=== PATIENT | female | born 1990 | race Caucasian/White ===

== ENCOUNTER 2016-10-21 17:05 | Emergency (ER) | payer OTHER ==
[2016-10-21 17:15] VITALS: O2SAT 96
--- NOTE | 2016-10-21 17:42 | ERPHSYRPT ---
- History of Present Illness Time Seen by Provider: 10/21/16 17:35 Historian: patient Patient Subjective Stated Complaint: PT REPORTS MID CHEST PAIN BEGINNING LAST WEEKEND-WAS TX WITH ANTIBIOTIC COUGH SYRUP ET DIZZY MEDS-STATES THAT IT IS BACK AGAIN-REPORTS PAIN INCREASES IF SHE PUTS ARMS ABOVE HER HEAD Triage Nursing Assessment: PT PALE WARM ET DRY-A & O X 3-AMBULATORY WITH NO DIFFICULTY TO ER ROOM-SLIGHT WHEEZES NOTED TO RIGHT LUNG-REPORTS NONPRODUCTIVE COUGH Physician History: Substernal CP began last week. Was seen at and RX at., cough medicine an Meclizine for dizziness. Pt with dry cough, breathing faster but no fever, palpitations or weakness. 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 States CP sharp, localized, increase with movement but not affected by deep inspiration. Denies any N/V/D. Timing/Duration: day(s) (2) Activities at Onset: activity Quality: sharpness Location: substernal Chest Pain Radiation: no radiation Severity of Pain-Max: moderate Severity of Pain-Current: moderate Modifying Factors: Improves With: movement (worsens) Associated Symptoms: cough, No nausea, No vomiting, No palpitations, No heartburn, No fever, No weakness, No dizziness Prior Chest Pain/Cardiac Workup: no prior chest pain Nitro Today/Relief: no nitro taken today Aspirin Treatment Today: no aspirin today Allergies/Adverse Reactions: nifedipine [From Procardia] Allergy (Verified 10/21/16 17:14) methylprednisolone [From Medrol] Adverse Reaction (Verified 10/21/16 17:14) Home Medications: No Home Meds 1 ea UD 10/21/16 [History] Hx Tetanus, Diphtheria Vaccination/Date Given: Yes Hx Influenza Vaccination/Date Given: No Hx Pneumococcal Vaccination/Date Given: No Immunizations Up to Date: Yes - Review of Systems Constitutional: No Fever, No Chills Eyes: No Symptoms Ears, Nose, & Throat: No Symptoms Respiratory: No Cough, No Dyspnea Cardiac: Chest Pain, No Edema, No Syncope Abdominal/Gastrointestinal: No Abdominal Pain, No Nausea, No Vomiting, No Diarrhea Genitourinary Symptoms: No Dysuria Musculoskeletal: No Back Pain, No Neck Pain Skin: No Rash Neurological: No Dizziness, No Focal Weakness, No Sensory Changes Psychological: No Symptoms Endocrine: No Symptoms All Other Systems: Reviewed and Negative - Past Medical History Pertinent Past Medical History: Yes Neurological History: TIA, Other ENT History: No Pertinent History Cardiac History: Angina Respiratory History: No Pertinent History Endocrine Medical History: No Pertinent History Musculoskeletal History: No Pertinent History GI Medical History: Gallbladder Disease History: Other Psycho-Social History: Anxiety, Attention Deficit Disorder, Depression Female Reproductive Disorders: No Pertinent History Other Medical History: neurogenic - Past Surgical History Past Surgical History: Yes Neuro Surgical History: No Pertinent History Cardiac: No Pertinent History Respiratory: No Pertinent History Gastrointestinal: Cholecystectomy Genitourinary: No Pertinent History Musculoskeletal: No Pertinent History Female Surgical History: Section Other Surgical History: - Social History Smoking Status: Former smoker How long have you smoked: 1 YEAR Exposure to second hand smoke: No Drug Use: none Patient Lives Alone: No - Female History Hx Now: No - Nursing Vital Signs Temperature: 98.1 F Temperature Source: Oral Pulse Rate: 93 Respiratory Rate: 22 Pain Intensity: 6 - Physical Exam General Appearance: no apparent distress, alert Eye Exam: PERRL/EOMI, eyes nml inspection Ears, Nose, Throat Exam: normal ENT inspection, moist mucous membranes Neck Exam: normal inspection, non-tender, supple, full range of motion Respiratory Exam: normal breath sounds, lungs clear, No respiratory distress Cardiovascular Exam: regular rate/rhythm, normal heart sounds, other (tender ant. chest wall area to palpation) Gastrointestinal/Abdomen Exam: soft, No tenderness, No mass Pelvic Exam: not done Back Exam: normal inspection, No CVA tenderness, No vertebral tenderness Extremity Exam: normal inspection, normal range of motion Neurologic Exam: alert, oriented x 3, cooperative, normal mood/affect, sensation nml, No motor deficits Skin Exam: normal color, warm, dry SpO2: 96 Oxygen Delivery: Room Air - Course Nursing assessment & vital signs reviewed: Yes EKG Interpreted by Me: RATE (91), Sinus Rhythm, NORMAL AXIS, NORMAL INTERVALS, NORMAL QRS, NORMAL ST-T Ordered Tests: Active Orders 24 hr Category Date Time Status EKG-ER Only STAT Care 10/21/16 17:54 Active IV Insertion STAT Care 10/21/16 17:54 Active CHEST 2 VIEWS (PA AND LAT) Stat Exams 10/21/16 17:52 Taken - Progress Progress: improved Air Movement: good Progress Note: 10/21/16 17:45 Pt. given Toradol with some relief of her symptoms Counseled pt/family regarding: diagnosis, rad results - Departure Time of Disposition: 18:30 Departure Disposition: Home Clinical Impression: Chest wall pain Condition: Stable Critical Care Time: No Instructions: Atypical Chest Pain Additional Instructions: Motrin 800mg every 8hrs with food. Return for worse pain, short of breath, dizziness, nausea, vomiting or any problems.
[2016-10-21 18:16] VITALS: BP 120/70
[2016-10-21 18:32] VITALS: PULSE 93
[2016-10-21] MEDS ORDERED: TORAdol 30 mg Injection IV ONE (18:34)
[2016-10-21] MEDS ORDERED: TORAdol 30 mg Injection ONE (18:35)
--- NOTE | 2016-10-22 08:42 | XRAY ---
Exam: Two-view chest from 10/21/2016. Comparison: AP upright portable chest film from 05/13/2014. Indication: Chest pain. Findings: The heart size and contour are normal. The jerad and mediastinal structures appear intact. There is average inflation of the lungs. No air space infiltrates, vascular congestion, pneumothorax, or pleural fluid is seen. The visualized bones appear grossly intact. Surgical clips are seen within the right upper quadrant consistent with prior cholecystectomy. EKG leads are seen in place. Comparison: 1. No acute cardiopulmonary process is seen.
== END 2016-10-21 18:58 | disposition home or self-care (01) ==
LOC: ED 17:05
DX: R07.89 Other chest pain (principal)
CPT/HCPCS: 36000; 71020; 93005; 96374; 99284; J1885

== ENCOUNTER 2016-11-11 22:10 | Emergency (ER) | payer OTHER ==
[2016-11-11 22:28] VITALS: BP 129/79; PULSE 88; O2SAT 97
--- NOTE | 2016-11-11 22:35 | ERPHSYRPT ---
- History of Present Illness Time Seen by Provider: 11/11/16 22:29 Source: patient Exam Limitations: no limitations Physician History: The patient is a 26-year-old female comes in complaining of burning and redness under each armpit that began about 3 hours ago when she was using Trivedi on her legs and accidentally scratched her arm pits with Trivedi on her fingers. Then her armpits became red and irritated. She called the [place] [employer] nurse hotline and was told to come to the ER. She tried washing it off with soap and water before coming in. She's tried various lotions like aloe as well. Timing/Duration: hour(s) (3) Quality: burning, painful Severity: mild Location: other (arm pits) Possible Causes: other (Trivedi) Modifying Factors: Improves With: other Associated Symptoms: rash Allergies/Adverse Reactions: nifedipine [From Procardia] Allergy (Verified 11/11/16 22:28) methylprednisolone [From Medrol] Adverse Reaction (Verified 11/11/16 22:28) Home Medications: No Home Meds 1 ea UD 10/21/16 [History] Hx Tetanus, Diphtheria Vaccination/Date Given: Yes Hx Influenza Vaccination/Date Given: No Hx Pneumococcal Vaccination/Date Given: No - Review of Systems Constitutional: No Fever, No Chills Eyes: No Symptoms Ears, Nose, & Throat: No Symptoms Respiratory: No Cough, No Dyspnea Cardiac: No Chest Pain, No Edema, No Syncope Abdominal/Gastrointestinal: No Abdominal Pain, No Nausea, No Vomiting, No Diarrhea Genitourinary Symptoms: No Dysuria Musculoskeletal: No Back Pain, No Neck Pain Skin: Rash Neurological: No Dizziness, No Focal Weakness, No Sensory Changes Psychological: No Symptoms Endocrine: No Symptoms Hematologic/Lymphatic: No Symptoms Immunological/Allergic: No Symptoms All Other Systems: Reviewed and Negative - Past Medical History Pertinent Past Medical History: Yes Neurological History: TIA, Other ENT History: No Pertinent History Cardiac History: Angina Respiratory History: No Pertinent History Endocrine Medical History: No Pertinent History Musculoskeletal History: No Pertinent History GI Medical History: Gallbladder Disease History: Other Psycho-Social History: Anxiety, Attention Deficit Disorder, Depression Female Reproductive Disorders: No Pertinent History Other Medical History: neurogenic - Past Surgical History Past Surgical History: Yes Neuro Surgical History: No Pertinent History Cardiac: No Pertinent History Respiratory: No Pertinent History Gastrointestinal: Cholecystectomy Genitourinary: No Pertinent History Musculoskeletal: No Pertinent History Female Surgical History: Section Other Surgical History: - Social History Smoking Status: Former smoker How long have you smoked: 1 YEAR Exposure to second hand smoke: No Drug Use: none Patient Lives Alone: No - Female History Hx Now: No - Nursing Vital Signs Nursing Vital Signs: Initial Vital Signs Temperature 98.4 F Temperature Source Oral Pulse Rate 88 Respiratory Rate 16 Blood Pressure [Right Arm] 129/79 - Physical Exam General Appearance: no apparent distress, alert Eye Exam: PERRL/EOMI, eyes nml inspection Ears, Nose, Throat Exam: normal ENT inspection, pharynx normal, moist mucous membranes Neck Exam: normal inspection, non-tender, supple, full range of motion Respiratory Exam: normal breath sounds, lungs clear, No respiratory distress Cardiovascular Exam: regular rate/rhythm, normal heart sounds Gastrointestinal/Abdomen Exam: soft, mass, No tenderness Pelvic Exam: not done Rectal Exam: not done Back Exam: normal inspection, normal range of motion, No CVA tenderness, No vertebral tenderness Extremity Exam: normal inspection, normal range of motion Neurologic Exam: alert, oriented x 3, cooperative, normal mood/affect, sensation nml, No motor deficits Skin Exam: rash (Examination of bilateral axilla is significant for mild linear erythematous rash in the right axilla without blistering and slightly more and larger erythematous rash in the left axilla without blistering. These findings are consistent with a contact irritant.) SpO2 Interpretation: normal SpO2: 97 Oxygen Delivery: Room Air - Departure Time of Disposition: 22:39 Departure Disposition: Home Clinical Impression: Irritant contact dermatitis due to chemical Condition: Stable Critical Care Time: No Additional Instructions: You have a contact irritation due to a component of Trivedi that was accidentally placed in the armpits. Gently wash the areas with baby shampoo and pat dry. You may try [id number] Solarcaine as an anesthetic. The area should improve over the next 1-2 days.
== END 2016-11-11 22:48 | disposition home or self-care (01) ==
LOC: ED 22:10
DX: L24.4 Irritant contact dermatitis due to drugs in contact with skin (principal)
CPT/HCPCS: 99281

== ENCOUNTER 2017-07-13 15:51 | Emergency (ER) | payer OTHER ==
[2017-07-13 16:25] VITALS: BP 122/69; PULSE 71; O2SAT 96
--- NOTE | 2017-07-13 16:46 | ERPHSYRPT ---
- History of Present Illness Time Seen by Provider: 07/13/17 16:34 Source: patient Patient Subjective Stated Complaint: PT REPORTS SHE HAS ALL OVER BODY ACHES- COUGH-STATES HER MOTHER TOLD HER SHE HAD A FEVER EARLIER-HER BROTHER HAS BEEN DX WITH THE FLU-REPORTS SHE FEELS NAUSEA BUT HAS NOT VOMITED-DENIES DIARRHEA Triage Nursing Assessment: PT PINK WARM ET DRY-LUNGS CLEAR ET EQUAL WITH NO RETRACTIONS NOTED-SPEAKING IN COMPLETE SENTENCES WITH NO DIFFICULTY Physician History: CC: flu Hx; malaise all week. Fever today. Brother diagnosed with influenza. She has fever, myalgias, headache, sore throat, headache, mild cough. No vomiting but has nausea. Not . No hx of asthma. No hx of DM. Allergies/Adverse Reactions: nifedipine [From Procardia] Allergy (Verified 07/13/17 16:25) methylprednisolone [From Medrol] Adverse Reaction (Verified 07/13/17 16:25) Home Medications: No Home Meds [No Home Meds] 1 ea UD 10/21/16 [History] Hx Tetanus, Diphtheria Vaccination/Date Given: Yes Hx Influenza Vaccination/Date Given: No Hx Pneumococcal Vaccination/Date Given: No Immunizations Up to Date: Yes - Review of Systems Constitutional: Fever, Chills, Fatigue, Malaise Eyes: No Symptoms Ears, Nose, & Throat: Nose Congestion, Throat Pain Respiratory: Cough, No Dyspnea Abdominal/Gastrointestinal: Nausea, Vomiting, Diarrhea Genitourinary Symptoms: No Dysuria Musculoskeletal: Myalgias Skin: No Rash Neurological: Headache All Other Systems: Reviewed and Negative - Past Medical History Pertinent Past Medical History: Yes Neurological History: TIA, Other ENT History: No Pertinent History Cardiac History: Angina Respiratory History: No Pertinent History Endocrine Medical History: No Pertinent History Musculoskeletal History: No Pertinent History GI Medical History: GERD, Gallbladder Disease History: Other Psycho-Social History: Anxiety, Attention Deficit Disorder, Depression Female Reproductive Disorders: No Pertinent History Other Medical History: neurogenic - Past Surgical History Past Surgical History: Yes Neuro Surgical History: No Pertinent History Cardiac: No Pertinent History Respiratory: No Pertinent History Gastrointestinal: Cholecystectomy Genitourinary: No Pertinent History Musculoskeletal: No Pertinent History Female Surgical History: Section Other Surgical History: - Social History Smoking Status: Never smoker How long have you smoked: 1 YEAR Exposure to second hand smoke: No Drug Use: none Patient Lives Alone: No ([place]) - Female History Hx Now: No - Nursing Vital Signs Nursing Vital Signs: Initial Vital Signs Temperature 98.1 F 07/13/17 16:24 Pulse Rate 71 07/13/17 16:24 Respiratory Rate 20 07/13/17 16:24 Blood Pressure 122/69 07/13/17 16:24 O2 Sat by Pulse Oximetry 96 07/13/17 16:24 Pain Scale Pain Intensity 6 - Physical Exam General Appearance: alert, obese, other (pleasant mood) Eye Exam: PERRL/EOMI Ears, Nose, Throat Exam: normal ENT inspection, moist mucous membranes Neck Exam: normal inspection, non-tender, supple, No meningismus Respiratory Exam: normal breath sounds, lungs clear, No respiratory distress Cardiovascular Exam: regular rate/rhythm, No tachycardia Gastrointestinal/Abdomen Exam: soft, No tenderness, No distention Back Exam: normal inspection Extremity Exam: normal inspection, normal range of motion Neurologic Exam: alert, oriented x 3, cooperative, sensation nml, No motor deficits Skin Exam: warm, dry, No rash SpO2 Interpretation: normal SpO2: 96 Oxygen Delivery: Room Air - Course Nursing assessment & vital signs reviewed: Yes - Progress Progress Note: 07/13/17 16:44 She has symptoms of influenza. She chose to take tamiflu. Rx zofran and alb MDI. Counseled pt/family regarding: diagnosis, need for follow-up - Departure Time of Disposition: 16:44 Departure Disposition: Home Clinical Impression: Influenza-like illness Condition: Stable Critical Care Time: No Referrals: Provider,Unknown [Primary Care Provider] - Instructions: Influenza -- Adult Additional Instructions: UPPER RESPIRATORY INFECTIONS 1. The signs and symptoms of a cold may last up to 10 days. These illnesses are due to viruses which are not treatable with antibiotics. 2. The following suggestions can aid in recovery and to minimize symptoms: A. Increase fluid intake. B. Acetaminophen or Ibuprofen as directed. C. Avoid smoking environments as this will increase the risk of developing pneumonia. D. For children, may use a cool mist vaporizer in the child's room. 3. Contact your Family Physician if you note: A. Persisten fever >103 for more than 3 days B. Breathing difficulty C. Productive cough of yellow/green sputum D. Illness greater than 7 days E. Persistent vomiting F. Stiff neck Plenty of fluids. Rx zofran- [facility] Rx alb [facility] [place] Off work until fever free for 24 hours. Rx tamiflu to [place] Prescriptions: Ondansetron ODT 4 MG [Zofran Odt 4 mg] 1 tab PO Q6H PRN PRN #10 tab.rapdis PRN Reason: Nausea/Vomiting Albuterol Sulfate [Albuterol Sulfate Hfa] 2 puff IH Q4-6HPRN PRN #1 [id number] PRN Reason: cough or wheeze Oseltamivir 75 mg [Tamiflu 75MG Capsule] 75 mg PO BID #10 cap
== END 2017-07-13 17:24 | disposition home or self-care (01) ==
LOC: ED 15:51
DX: J11.1 Influenza due to unidentified influenza virus with other respiratory manifestations (principal)
CPT/HCPCS: 99282

== ENCOUNTER 2017-11-19 23:04 | Emergency (ER) | payer OTHER ==
[2017-11-19 23:21] VITALS: BP 135/80; PULSE 72; O2SAT 98
[2017-11-19] MEDS ORDERED: BABY ASPIRIN 81 MG CHEW ONE (23:26)
[2017-11-19] MEDS: BABY ASPIRIN 81 MG CHEW PO ONE (23:28)
--- NOTE | 2017-11-19 23:29 | ERPHSYRPT ---
- History of Present Illness Time Seen by Provider: 11/19/17 23:22 Historian: patient Exam Limitations: no limitations Patient Subjective Stated Complaint: Pt arrives to ER with c/o anxiety related chest pain for past couple days states nausea started tonight without vomiting. pt points to left side of chest for past that radiates into left shoulder/arm. Denies any hx of heart problems. pt states knows this pain is from anxiety and took Hydroxyzine at home aroudn 2100, helped for 2 hours and came back. pt states "it's been going on for three days and I'm tired of dealing with it". pt admits this is not an emergency but states "it's just hard to work with". Does not appear to be in any distress at this time with respirations easy even regular and unlabored. Triage Nursing Assessment: see above Physician History: 27-year-old white female arrives with complaint of pain in the left upper chest radiating to her left shoulder symptoms going on for 2-3 days constant not associated with shortness of breath, positive nausea. Patient feels like this might be related to anxiety patient states she takes hydroxyzine states the pain goes away when she takes hydroxyzine and then comes back. Past medical history includes TIA, angina, GERD, gallbladder disease, anxiety, attention deficit disorder, depression Past surgical history includes cholecystectomy Timing/Duration: day(s) (2-3 days), constant Activities at Onset: none Quality: throbbing Location: other (left upper chest radiating to left shoulder) Chest Pain Radiation: arm (Left arm) Severity of Pain-Max: moderate Severity of Pain-Current: mild Modifying Factors: Improves With: other (improved after taking hydroxyzine) Associated Symptoms: nausea, No vomiting, No palpitations, No heartburn, No abdominal pain, No shortness of breath, No cough, No hurts to breathe, No diaphoresis, No chills, No fever, No fatigue, No swelling/lump in chest, No syncope, No rash, No headache, No dizziness, No edema, No back pain Prior Chest Pain/Cardiac Workup: non-cardiac Nitro Today/Relief: no nitro taken today Aspirin Treatment Today: 81 mg x 4, provided by ED Allergies/Adverse Reactions: nifedipine [From Procardia] Allergy (Verified 11/19/17 23:21) methylprednisolone [From Medrol] Adverse Reaction (Verified 11/19/17 23:21) Home Medications: Hydroxyzine HCl 25 mg [Atarax 25 mg] 25 mg PO DAILY PRN PRN 11/19/17 [ History] Multivitamin [Multivitamins] 1 tab PO DAILY 11/19/17 [History] Hx Tetanus, Diphtheria Vaccination/Date Given: Yes Hx Influenza Vaccination/Date Given: No Hx Pneumococcal Vaccination/Date Given: No - Review of Systems Constitutional: No Fever, No Chills Eyes: No Symptoms Ears, Nose, & Throat: No Symptoms Respiratory: No Cough, No Dyspnea Cardiac: Chest Pain (chest pain and left upper chest radiating to left shoulder x 3 days) Abdominal/Gastrointestinal: No Abdominal Pain, No Nausea, No Vomiting, No Diarrhea, No Constipation, No Hematemesis, No Hematochezia, No Melena, No Dysphagia, No Appetite Changes Genitourinary Symptoms: No Dysuria Musculoskeletal: No Back Pain, No Neck Pain Skin: No Rash Neurological: No Dizziness, No Focal Weakness, No Sensory Changes Psychological: No Symptoms Endocrine: No Symptoms All Other Systems: Reviewed and Negative - Past Medical History Pertinent Past Medical History: Yes Neurological History: TIA, Other ENT History: No Pertinent History Cardiac History: Angina Respiratory History: No Pertinent History Endocrine Medical History: No Pertinent History Musculoskeletal History: No Pertinent History GI Medical History: GERD, Gallbladder Disease History: Other Psycho-Social History: Anxiety, Attention Deficit Disorder, Depression Female Reproductive Disorders: No Pertinent History Other Medical History: neurogenic - Past Surgical History Past Surgical History: Yes Neuro Surgical History: No Pertinent History Cardiac: No Pertinent History Respiratory: No Pertinent History Gastrointestinal: Cholecystectomy Genitourinary: No Pertinent History Musculoskeletal: No Pertinent History Female Surgical History: Section Other Surgical History: - Social History Smoking Status: Never smoker How long have you smoked: 1 YEAR Exposure to second hand smoke: No Drug Use: none Patient Lives Alone: No - Female History Hx Now: No - Nursing Vital Signs Nursing Vital Signs: Initial Vital Signs Temperature 98.7 F 11/19/17 23:08 Pulse Rate 72 11/19/17 23:08 Respiratory Rate 16 11/19/17 23:08 Blood Pressure 135/80 11/19/17 23:08 O2 Sat by Pulse Oximetry 98 11/19/17 23:08 Pain Scale Pain Intensity 6 - Physical Exam General Appearance: no apparent distress, alert Eye Exam: PERRL/EOMI, eyes nml inspection Ears, Nose, Throat Exam: normal ENT inspection, moist mucous membranes Neck Exam: normal inspection, non-tender, supple, full range of motion Respiratory Exam: normal breath sounds, lungs clear, No respiratory distress Cardiovascular Exam: regular rate/rhythm, normal heart sounds Gastrointestinal/Abdomen Exam: soft, No tenderness, No mass Back Exam: normal inspection, No CVA tenderness, No vertebral tenderness Extremity Exam: normal inspection, normal range of motion Neurologic Exam: alert, oriented x 3, cooperative, 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, normal mood/affect, sensation nml, No motor deficits Skin Exam: normal color, warm, dry SpO2 Interpretation: normal (98%) SpO2: 98 Oxygen Delivery: Room Air - Course Nursing assessment & vital signs reviewed: Yes EKG Interpreted by Me: RATE (66 bpm), Sinus Rhythm, NORMAL AXIS, Other (EKG: Normal sinus rhythm, 66 bpm, axisSI/QIII pattern no acute ST or T wave changes , normal EKG) - Radiology Exams Chest X-ray Interpretation: Interpreted by me, Other (no acute disease process) Ordered Tests: Active Orders 24 hr Category Date Time Status EKG-ER Only STAT Care 11/19/17 23:22 Active IV Insertion STAT Care 11/19/17 23:22 Active CHEST 1 VIEW (PORTABLE) Stat Exams 11/19/17 23:34 Taken CBC W DIFF Stat Lab 11/19/17 23:30 Completed CMP Stat Lab 11/19/17 23:30 Completed D-DIMER QUANTITATION Stat Lab 11/19/17 23:30 Completed HCG QUALITATIVE,SERUM Stat Lab 11/19/17 23:30 Completed TROPONIN Q3H Lab 11/19/17 23:30 Completed TROPONIN Q3H Lab 11/20/17 02:30 Ordered TROPONIN Q3H Lab 11/20/17 05:30 Ordered TROPONIN Q3H Lab 11/20/17 08:30 Ordered TROPONIN Q3H Lab 11/20/17 11:30 Ordered Medication Summary Discontinued Medications Generic Name Dose Route Start Last Admin Trade Name Freq PRN Reason Stop Dose Admin Aspirin 324 mg 11/19/17 23:22 11/19/17 23:28 Baby Aspirin 81 Mg Chew PO 11/19/17 23:23 324 mg STAT ONE Administration Aspirin Confirm 11/19/17 23:26 Baby Aspirin 81 Mg Chew Administered 11/19/17 23:27 Dose 324 mg .ROUTE .STK-MED ONE Ketorolac Tromethamine 30 mg 11/20/17 00:12 Toradol 30 Mg Injection IV 11/20/17 00:13 STAT ONE Lab/Rad Data: Laboratory Result Diagrams 11/19/17 23:30 11/19/17 23:30 Laboratory Results 11/19/17 11/19/17 11/19/17 Range/Units 23:30 23:30 23:30 WBC (4.0-10.5) K/mm3 RBC (4.1-5.4) M/mm3 Hgb (12.0-16.0) gm/dl Hct (35-47) % MCV (78-100) fl MCH (26-32) pg MCHC (32-36) g/dl RDW (11.5-14.0) % Plt Count (150-450) K/mm3 MPV (6-9.5) fl Gran % (36.0-66.0) % Eos # (Auto) (0-0.5) Absolute Lymphs (auto) (1.0-4.6) Absolute Monos (auto) (0.0-1.3) Lymphocytes % (24.0-44.0) % Monocytes % (0.0-12.0) % Eosinophils % (0.00-5.0) % Basophils % (0.0-0.4) % Absolute Granulocytes (1.4-6.9) Basophils # (0-0.4) D-Dimer < 215 L (215-500) ng/mL Sodium (137-145) mmol/L Potassium (3.5-5.1) mmol/L Chloride (98-107) mmol/L Carbon Dioxide (22-30) mmol/L Anion Gap (5-15) MEQ/L BUN (7-17) mg/dL Creatinine (0.52-1.04) mg/dL Estimated GFR ML/MIN Glucose (74-106) mg/dL Calcium (8.4-10.2) mg/dL Total Bilirubin (0.2-1.3) mg/dL AST (14-36) U/L ALT (0-35) U/L Alkaline Phosphatase (38-126) U/L Troponin I < 0.012 (0.000-0.034) ng/mL Serum Total Protein (6.3-8.2) g/dL Albumin (3.5-5.0) g/dL Serum , Qual NEGATIVE (Negative) 11/19/17 11/19/17 Range/Units 23:30 23:30 WBC 9.7 (4.0-10.5) K/mm3 RBC 4.80 (4.1-5.4) M/mm3 Hgb 14.6 (12.0-16.0) gm/dl Hct 42.1 (35-47) % MCV 87.7 (78-100) fl MCH 30.4 (26-32) pg MCHC 34.7 (32-36) g/dl RDW 13.0 (11.5-14.0) % Plt Count 250 (150-450) K/mm3 MPV 11.4 H (6-9.5) fl Gran % 54.1 (36.0-66.0) % Eos # (Auto) 0.24 (0-0.5) Absolute Lymphs (auto) 3.68 (1.0-4.6) Absolute Monos (auto) 0.53 (0.0-1.3) Lymphocytes % 37.8 (24.0-44.0) % Monocytes % 5.4 (0.0-12.0) % Eosinophils % 2.5 (0.00-5.0) % Basophils % 0.2 (0.0-0.4) % Absolute Granulocytes 5.27 (1.4-6.9) Basophils # 0.02 (0-0.4) D-Dimer (215-500) ng/mL Sodium 141 (137-145) mmol/L Potassium 3.7 (3.5-5.1) mmol/L Chloride 105 (98-107) mmol/L Carbon Dioxide 23 (22-30) mmol/L Anion Gap 16.5 H (5-15) MEQ/L BUN 11 (7-17) mg/dL Creatinine 0.76 (0.52-1.04) mg/dL Estimated GFR > 60.0 ML/MIN Glucose 102 (74-106) mg/dL Calcium 10.1 (8.4-10.2) mg/dL Total Bilirubin 0.20 (0.2-1.3) mg/dL AST 50 H (14-36) U/L ALT 106 H (0-35) U/L Alkaline Phosphatase 79 (38-126) U/L Troponin I (0.000-0.034) ng/mL Serum Total Protein 7.3 (6.3-8.2) g/dL Albumin 4.5 (3.5-5.0) g/dL Serum , Qual (Negative) - Progress Progress: improved Air Movement: fair Progress Note: 11/20/17 00:19 This is a 27-year-old white female arrives with complaint of pain in her left upper chest radiating left arm described as throbbing going on for 2-3 days states it is better with hydroxyzine however returns after she takes it the hydroxyzine has been prescribed by her family DrKvng secondary to anxiety. Patient's vitals are essentially normal patient's liver enzymes are slightly elevated patient's troponin within normal limits chemistry otherwise essentially normal CBC is normal chest x-ray unremarkable patient is better after aspirin 324 mg by mouth. Will give patient Toradol 30 mg IV plan patient is to return home Vistaril as prescribed by her family doctor as needed for anxiety. Tylenol every 4 hours or Advil every 6 hours as needed for pain follow-up with her family doctor. Return for acute distress or for severe symptoms. - Departure Time of Disposition: 00:21 Departure Disposition: Home Clinical Impression: Non-cardiac chest pain, Anxiety Condition: Fair Critical Care Time: No Referrals: Provider,Unknown [Primary Care Provider] - Additional Instructions: Return home, rest continue hydroxyzine as prescribed by your family doctor. tylenol every 4 hours or advil every 6 hours as needed for pain. follow up with your family doctor. Return for acute distress or for severe symptoms.
[2017-11-19 23:36] LABS: BASOPHIL % 0.2 % (0.0-0.4); Basophil (Absolute #) 0.02 (0-0.4); Eosinophil % 2.5 % (0.00-5.0); Eosinophil (Absolute #) 0.24 (0-0.5); Granulocyte Absolute (ANC) 5.27 (1.4-6.9); Granulocytes % 54.1 % (36.0-66.0); Hematocrit 42.1 % (35-47); Hemoglobin 14.6 gm/dl (12.0-16.0); Lymphocyte (Absolute #) 3.68 (1.0-4.6); Lymphocytes % 37.8 % (24.0-44.0); Mean Cell Volume 87.7 fl (78-100); Mean Corpuscular Hemoglobin 30.4 pg (26-32); Mean Corpuscular Hgb Concent. 34.7 g/dl (32-36); Mean Platelet Volume 11.4 fl (6-9.5); Monocyte (Absolute #) 0.53 (0.0-1.3); Monocytes % 5.4 % (0.0-12.0); Platelet Count 250 K/mm3 (150-450); White Blood Count 9.7 K/mm3 (4.0-10.5)
[2017-11-20 00:02] LABS: ALBUMIN 4.5 g/dL (3.5-5.0); ALKALINE PHOSPHATASE 79 U/L (38-126); ANION GAP 16.5 MEQ/L (5-15); BLOOD UREA NITROGEN 11 mg/dL (7-17); CHLORIDE 105 mmol/L (98-107); Calcium 10.1 mg/dL (8.4-10.2); Carbon Dioxide 23 mmol/L (22-30); Creatinine 1 0.76 mg/dL (0.52-1.04); Glucose 102 mg/dL (74-106); Potassium 3.7 mmol/L (3.5-5.1); SGOT/AST 50 U/L (14-36); SGPT/ALT 106 U/L (0-35); SODIUM 141 mmol/L (137-145); Total Protein 7.3 g/dL (6.3-8.2)
[2017-11-20] MEDS ORDERED: TORAdol 30 mg Injection ONE (00:20)
[2017-11-20] MEDS: TORAdol 30 mg Injection IV ONE (00:21)
--- NOTE | 2017-11-20 08:51 | XRAY ---
Indication: Chest pain. Comparison: October 21, 2016. Portable chest less inflated today again with a few scattered tiny calcified granulomas. No focal infiltrate, consolidation, or large effusion. Heart is not enlarged. Bony thorax intact. Impression: Nonacute chest again with evidence for old granulomatous disease.
== END 2017-11-20 00:29 | disposition home or self-care (01) ==
LOC: ED 23:04
DX: R07.89 Other chest pain (principal); F41.9 Anxiety disorder, unspecified; R11.0 Nausea
CPT/HCPCS: 36000; 36415; 71045; 80053; 84484; 84703; 85025; 85379; 93005; 96374; 99284; J1885; A9270-GY

== ENCOUNTER 2021-06-18 04:23 | Emergency (ER) | payer OTHER ==
[2021-06-18] MEDS ORDERED: Sodium Chloride 0.9% 1000 ML 1,000 ML IV STA (04:55)
[2021-06-18] MEDS ORDERED: TORAdol 30 mg Injection IV ONE (04:59)
--- NOTE | 2021-06-18 05:08 | ERPHSYRPT ---
- History of Present Illness Time Seen by Provider: 06/18/21 04:50 Source: patient Exam Limitations: no limitations Patient Subjective Stated Complaint: pt states she has fever, cough, generized body aches, and headache Triage Nursing Assessment: pt alert and oriented, answers questions approp. pt ambulatory with steady gait ntoed. skin hot and dry, pt short of breath with exertion. lung sounds clear bilat. occasional hacking cough noted. Physician History: 31-year-old female presented in the ER with chief complaint of intermittent fever chill cough with body aches fatigue and tiredness for almost 1 week. Patient reports she is been seen outpatient and has just finished course of antibiotic. Denies any chest pain but hurts to take a deep breath. Unvaccinated against COVID-19. Timing/Duration: week(s), constant, gradual onset, worse Cough Quality/Degree: moderate, dry cough Possible Cause: no prior episodes Modifying Factors: Worsens With: coughing, deep breath, exertion Associated Symptoms: fever, chills, chest pain/soreness, cough, dizziness, headache, lightheadedness, muscle aches, nasal congestion, nasal drainage, sinus infection, sore throat, No shortness of breath Allergies/Adverse Reactions: nifedipine [From Procardia] Allergy (Mild, Verified 06/18/21 04:35) methylprednisolone [From Medrol] Adverse Reaction (Intermediate, Verified 06/07 08/28 04:35) Home Medications: Bupropion HCl [Wellbutrin Xl] 300 mg PO DAILY 06/18/21 [History] Cyclobenzaprine HCl 10 mg [Cyclobenzaprine 10 MG] 10 mg PO DAILY 06/18/21 [History] Gabapentin 300 mg [Neurontin 300 mg] 300 mg PO DAILY 06/18/21 [History] Hx Tetanus, Diphtheria Vaccination/Date Given: Yes Hx Influenza Vaccination/Date Given: No Hx Pneumococcal Vaccination/Date Given: No Immunizations Up to Date: Yes Travel Risk - International Travel Have you traveled outside of the country in past 3 weeks: No - Coronavirus Screening Are you exhibiting any of the following symptoms?: Yes Symptoms: Fever, Cough: New Onset, Shortness of Breath, Headaches/Body Aches/Fatigue Close contact with a COVID-19 positive Pt in past 14-21 Days: No - Vaccine Status Have you recieved a Covid-19 vaccination: No - Review of Systems Constitutional: Fever, Chills, Fatigue, Weakness Eyes: No Symptoms Ears, Nose, & Throat: Sinus Drainage, Throat Swelling Respiratory: Cough, Dyspnea Cardiac: No Symptoms Abdominal/Gastrointestinal: No Symptoms Genitourinary Symptoms: No Symptoms Musculoskeletal: Myalgias Skin: No Symptoms Neurological: Dizziness, Headache Psychological: No Symptoms Endocrine: No Symptoms Hematologic/Lymphatic: No Symptoms Immunological/Allergic: No Symptoms - Past Medical History Pertinent Past Medical History: Yes Neurological History: No Pertinent History ENT History: No Pertinent History Cardiac History: No Pertinent History Respiratory History: No Pertinent History Endocrine Medical History: Other Musculoskeletal History: No Pertinent History GI Medical History: GERD, Gallbladder Disease History: Other Psycho-Social History: Anxiety, Attention Deficit Disorder, Depression Female Reproductive Disorders: No Pertinent History Other Medical History: FATTY LIVER, PRE DIABETIC. possible lupus - Past Surgical History Past Surgical History: Yes Neuro Surgical History: No Pertinent History Cardiac: No Pertinent History Respiratory: No Pertinent History Gastrointestinal: Cholecystectomy Genitourinary: No Pertinent History Musculoskeletal: No Pertinent History Female Surgical History: Section Other Surgical History: - Social History Smoking Status: Former smoker How long have you smoked: 1 YEAR Exposure to second hand smoke: No Drug Use: none Patient Lives Alone: Yes - Female History Hx Last Menstrual Period: implant Hx Now: No - Nursing Vital Signs Nursing Vital Signs: Initial Vital Signs Temperature 101.4 F 06/18/21 04:26 Pulse Rate 118 H 06/18/21 04:26 Respiratory Rate 18 06/18/21 04:26 Blood Pressure 132/89 06/18/21 04:26 O2 Sat by Pulse Oximetry 93 L 06/18/21 04:26 Pain Scale Pain Intensity 2 - Physical Exam General Appearance: no apparent distress, alert Eye Exam: PERRL/EOMI, eyes nml inspection Ears, Nose, Throat Exam: normal ENT inspection, pharyngeal erythema Neck Exam: normal inspection, non-tender, supple, full range of motion Respiratory Exam: normal breath sounds, rhonchi Cardiovascular Exam: normal heart sounds, tachycardia Gastrointestinal/Abdomen Exam: soft, normal bowel sounds, No tenderness Back Exam: normal inspection, normal range of motion Extremity Exam: normal inspection, normal range of motion, pelvis stable Neurologic Exam: alert, oriented x 3, cooperative, 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 Skin Exam: normal color SpO2 Interpretation: normal SpO2: 93 O2 Delivery: Room Air Ordered Tests: Medication Summary Discontinued Medications Generic Name Dose Route Start Last Admin Trade Name Silvia PRN Reason Stop Dose Admin Hydrocodone Bitart/Acetaminophen 15 ml 06/18/21 05:00 06/18/21 06:49 Hydrocodone/Acetaminophen 5 Ml Udcup PO 06/18/21 05:01 15 ml STAT STA Administration Hydrocodone Bitart/Acetaminophen Confirm 06/18/21 05:09 Hydrocodone/Acetaminophen 5 Ml Udcup Administered 06/18/21 05:10 Dose 15 ml .ROUTE .STK-MED ONE Sodium Chloride 1,000 mls @ 999 mls/hr 06/18/21 04:55 06/18/21 06:57 Sodium Chloride 0.9% 1000 Ml IV 06/18/21 05:55 Infused .Q1H1M STA Infusion Sodium Chloride Confirm 06/18/21 05:10 Sodium Chloride 0.9% 1000 Ml Administered 06/18/21 05:11 Dose 1,000 mls @ ud .ROUTE .STK-MED ONE Ketorolac Tromethamine 30 mg 06/18/21 04:59 06/18/21 05:14 Ketorolac Tromethamine 30 Mg/Ml Inj IV 06/18/21 05:00 30 mg STAT ONE Administration Ketorolac Tromethamine Confirm 06/18/21 05:09 Ketorolac Tromethamine 30 Mg/Ml Inj Administered 06/18/21 05:10 Dose 30 mg .ROUTE .STK-MED ONE Lab/Rad Data: Laboratory Result Diagrams 06/18/21 04:40 06/18/21 04:40 Laboratory Results 06/18/21 06/18/21 06/18/21 Range/Units 05:28 05:05 04:40 WBC (4.0-10.5) K/mm3 RBC (4.1-5.4) M/mm3 Hgb (12.0-16.0) gm/dl Hct (35-47) % MCV (78-100) fl MCH (26-32) pg MCHC (32-36) g/dl RDW (11.5-14.0) % Plt Count (150-450) K/mm3 MPV (7.5-11.0) fl Gran % (36.0-66.0) % Eos # (Auto) (0-0.5) Absolute Lymphs (auto) (1.0-4.6) Absolute Monos (auto) (0.0-1.3) Lymphocytes % (24.0-44.0) % Monocytes % (0.0-12.0) % Eosinophils % (0.00-5.0) % Basophils % (0.0-0.4) % Absolute Granulocytes (1.4-6.9) Basophils # (0-0.4) D-Dimer 482 (215-500) ng/mL Sodium (137-145) mmol/L Potassium (3.5-5.1) mmol/L Chloride (98-107) mmol/L Carbon Dioxide (22-30) mmol/L Anion Gap (5-15) MEQ/L BUN (7-17) mg/dL Creatinine (0.52-1.04) mg/dL Estimated GFR ML/MIN Glucose (74-106) mg/dL Lactic Acid 1.4 (0.4-2.0) Calcium (8.4-10.2) mg/dL Total Bilirubin (0.2-1.3) mg/dL AST (14-36) U/L ALT (0-35) U/L Alkaline Phosphatase (38-126) U/L Serum Total Protein (6.3-8.2) g/dL Albumin (3.5-5.0) g/dL Urine Color YELLOW (YELLOW) Urine Appearance SLIGHTLY CLOUDY (CLEAR) Urine pH 5.0 (5-6) Ur Specific [place] 1.023 (1.005-1.025) Urine Protein NEGATIVE (Negative) Urine Ketones NEGATIVE (NEGATIVE) Urine Blood NEGATIVE (0-5) Lalito/ul Urine Nitrite NEGATIVE (NEGATIVE) Urine Bilirubin NEGATIVE (NEGATIVE) Urine Urobilinogen NEGATIVE (0-1) mg/dL Ur Leukocyte Esterase TRACE (NEGATIVE) Urine WBC (Auto) 3-5 (0-5) /HPF Urine RBC (Auto) 0-2 (0-2) /HPF U Epithel Cells (Auto) RARE (FEW) /HPF Urine Bacteria (Auto) NONE (NEGATIVE) /HPF Urine Mucus (Auto) SLIGHT (NEGATIVE) /HPF Urine Culture Reflexed NO (NO) Urine Glucose NEGATIVE (NEGATIVE) mg/dL Urine HCG, Qual (Negative) Influenza Type A Ag (NEGATIVE) Influenza Type B Ag (NEGATIVE) Group A Strep Antibody (NEGATIVE) 06/18/21 06/18/21 06/18/21 Range/Units 04:40 04:40 04:40 WBC (4.0-10.5) K/mm3 RBC (4.1-5.4) M/mm3 Hgb (12.0-16.0) gm/dl Hct (35-47) % MCV (78-100) fl MCH (26-32) pg MCHC (32-36) g/dl RDW (11.5-14.0) % Plt Count (150-450) K/mm3 MPV (7.5-11.0) fl Gran % (36.0-66.0) % Eos # (Auto) (0-0.5) Absolute Lymphs (auto) (1.0-4.6) Absolute Monos (auto) (0.0-1.3) Lymphocytes % (24.0-44.0) % Monocytes % (0.0-12.0) % Eosinophils % (0.00-5.0) % Basophils % (0.0-0.4) % Absolute Granulocytes (1.4-6.9) Basophils # (0-0.4) D-Dimer (215-500) ng/mL Sodium 137 (137-145) mmol/L Potassium 3.7 (3.5-5.1) mmol/L Chloride 104 (98-107) mmol/L Carbon Dioxide 23 (22-30) mmol/L Anion Gap 13.9 (5-15) MEQ/L BUN 8 (7-17) mg/dL Creatinine 0.90 (0.52-1.04) mg/dL Estimated GFR > 60.0 ML/MIN Glucose 142 H (74-106) mg/dL Lactic Acid (0.4-2.0) Calcium 9.2 (8.4-10.2) mg/dL Total Bilirubin 0.20 (0.2-1.3) mg/dL AST 97 H (14-36) U/L ALT 164 H (0-35) U/L Alkaline Phosphatase 91 (38-126) U/L Serum Total Protein 6.7 (6.3-8.2) g/dL Albumin 4.2 (3.5-5.0) g/dL Urine Color (YELLOW) Urine Appearance (CLEAR) Urine pH (5-6) Ur Specific [place] (1.005-1.025) Urine Protein (Negative) Urine Ketones (NEGATIVE) Urine Blood (0-5) Lalito/ul Urine Nitrite (NEGATIVE) Urine Bilirubin (NEGATIVE) Urine Urobilinogen (0-1) mg/dL Ur Leukocyte Esterase (NEGATIVE) Urine WBC (Auto) (0-5) /HPF Urine RBC (Auto) (0-2) /HPF U Epithel Cells (Auto) (FEW) /HPF Urine Bacteria (Auto) (NEGATIVE) /HPF Urine Mucus (Auto) (NEGATIVE) /HPF Urine Culture Reflexed (NO) Urine Glucose (NEGATIVE) mg/dL Urine HCG, Qual NEGATIVE (Negative) Influenza Type A Ag NEGATIVE (NEGATIVE) Influenza Type B Ag NEGATIVE (NEGATIVE) Group A Strep Antibody NOT DETECTED (NEGATIVE) 06/18/21 Range/Units 04:40 WBC 5.4 (4.0-10.5) K/mm3 RBC 4.48 (4.1-5.4) M/mm3 Hgb 13.4 (12.0-16.0) gm/dl Hct 41.1 (35-47) % MCV 91.7 (78-100) fl MCH 29.9 (26-32) pg MCHC 32.6 (32-36) g/dl RDW 13.7 (11.5-14.0) % Plt Count 241 (150-450) K/mm3 MPV 11.5 H (7.5-11.0) fl Gran % 80.8 H (36.0-66.0) % Eos # (Auto) 0.10 (0-0.5) Absolute Lymphs (auto) 0.62 L (1.0-4.6) Absolute Monos (auto) 0.30 (0.0-1.3) Lymphocytes % 11.5 L (24.0-44.0) % Monocytes % 5.6 (0.0-12.0) % Eosinophils % 1.9 (0.00-5.0) % Basophils % 0.2 (0.0-0.4) % Absolute Granulocytes 4.36 (1.4-6.9) Basophils # 0.01 (0-0.4) D-Dimer (215-500) ng/mL Sodium (137-145) mmol/L Potassium (3.5-5.1) mmol/L Chloride (98-107) mmol/L Carbon Dioxide (22-30) mmol/L Anion Gap (5-15) MEQ/L BUN (7-17) mg/dL Creatinine (0.52-1.04) mg/dL Estimated GFR ML/MIN Glucose (74-106) mg/dL Lactic Acid (0.4-2.0) Calcium (8.4-10.2) mg/dL Total Bilirubin (0.2-1.3) mg/dL AST (14-36) U/L ALT (0-35) U/L Alkaline Phosphatase (38-126) U/L Serum Total Protein (6.3-8.2) g/dL Albumin (3.5-5.0) g/dL Urine Color (YELLOW) Urine Appearance (CLEAR) Urine pH (5-6) Ur Specific [place] (1.005-1.025) Urine Protein (Negative) Urine Ketones (NEGATIVE) Urine Blood (0-5) Lalito/ul Urine Nitrite (NEGATIVE) Urine Bilirubin (NEGATIVE) Urine Urobilinogen (0-1) mg/dL Ur Leukocyte Esterase (NEGATIVE) Urine WBC (Auto) (0-5) /HPF Urine RBC (Auto) (0-2) /HPF U Epithel Cells (Auto) (FEW) /HPF Urine Bacteria (Auto) (NEGATIVE) /HPF Urine Mucus (Auto) (NEGATIVE) /HPF Urine Culture Reflexed (NO) Urine Glucose (NEGATIVE) mg/dL Urine HCG, Qual (Negative) Influenza Type A Ag (NEGATIVE) Influenza Type B Ag (NEGATIVE) Group A Strep Antibody (NEGATIVE) - Progress Progress: improved Air Movement: good Progress Note: 06/18/21 06:59 She is given symptomatic treatment. Negative strep and flu. Patient refused Covid test. Feeling better on reevaluation. Chest x-ray negative for any acute cardiopulmonary findings. Symptoms probably viral etiology, recommended suppor ve care. Discussed signs symptoms of worsening needing return to ER which he seems understanding. Stable for discharge. Blood Culture(s) Obtained: Yes Antibiotics given: Yes Counseled pt/family regarding: lab results, diagnosis, need for follow-up, rad results - Departure Departure Disposition: Home Clinical Impression: Acute viral syndrome Condition: Stable Critical Care Time: No Referrals: PRECIOUS NORRIS NP [Primary Care Provider] - Follow Up with PCP/3 days Instructions: Fever, Adult (DC) Additional Instructions: Take Tylenol/ibuprofen as needed for fever/body aches. Follow-up with primary care for reevaluation. Return to ER for any worsening. Prescriptions: Prednisone 20 mg [Deltasone 20 mg] 60 mg PO DAILY 5 Days #15 tablet Azithromycin 250 mg [Zithromax 250 MG TABLET] 250 mg PO ZPACK #6 tablet
[2021-06-18] MEDS ORDERED: TORAdol 30 mg Injection ONE (05:09)
[2021-06-18] MEDS ORDERED: HYDROCODONE-ACETAMIN 2.5-108/5 ML SOLUTION ONE (05:09)
[2021-06-18] MEDS ORDERED: Sodium Chloride 0.9% 1000 ML 1,000 ML ONE (05:10)
[2021-06-18] MEDS: HYDROCODONE-ACETAMIN 2.5-108/5 ML SOLUTION PO STA ×2 (05:14→06:49)
[2021-06-18 05:48] LABS: Absolute Neutrophil Ct (ANC) 4.36 (1.4-6.9); BASOPHIL % 0.2 % (0.0-0.4); Basophil (Absolute #) 0.01 (0-0.4); Eosinophil % 1.9 % (0.00-5.0); Hematocrit 41.1 % (35-47); Hemoglobin 13.4 gm/dl (12.0-16.0); Lymphocyte (Absolute #) 0.62 (1.0-4.6); Lymphocytes % 11.5 % (24.0-44.0); Mean Cell Volume 91.7 fl (78-100); Mean Corpuscular Hemoglobin 29.9 pg (26-32); Mean Corpuscular Hgb Concent. 32.6 g/dl (32-36); Mean Platelet Volume 11.5 fl (7.5-11.0); Monocytes % 5.6 % (0.0-12.0); Neutrophil % 80.8 % (36.0-66.0); Platelet Count 241 K/mm3 (150-450); Red Blood Count 4.48 M/mm3 (4.1-5.4); Red Cell Distribution Width 13.7 % (11.5-14.0); White Blood Count 5.4 K/mm3 (4.0-10.5)
[2021-06-18 05:59] LABS: ALBUMIN 4.2 g/dL (3.5-5.0); ALKALINE PHOSPHATASE 91 U/L (38-126); ANION GAP 13.9 MEQ/L (5-15); BLOOD UREA NITROGEN 8 mg/dL (7-17); CHLORIDE 104 mmol/L (98-107); Calcium 9.2 mg/dL (8.4-10.2); Carbon Dioxide 23 mmol/L (22-30); EST GLOMERULAR FILTRATION RATE > 60.0 ML/MIN; Glucose 142 mg/dL (74-106); Potassium 3.7 mmol/L (3.5-5.1); SGOT/AST 97 U/L (14-36); SGPT/ALT 164 U/L (0-35); SODIUM 137 mmol/L (137-145); Total Protein 6.7 g/dL (6.3-8.2)
[2021-06-18 06:18] LABS: HCG,QUALITATIVE URINE NEGATIVE (Negative)
[2021-06-18 06:19] LABS: Appearance SLIGHTLY CLOUDY (CLEAR); Bilirubin NEGATIVE (NEGATIVE); Blood NEGATIVE Ery/ul (0-5); Epithelial Cells RARE /HPF (FEW); Glucose NEGATIVE (NEGATIVE); Ketones NEGATIVE (NEGATIVE); Leukocyte Esterase TRACE (NEGATIVE); Mucus SLIGHT /HPF (NEGATIVE); Nitrite NEGATIVE (NEGATIVE); Protein,Urine Dip NEGATIVE (Negative); RBC 0-2 /HPF (0-2); Specific Gravity 1.023 (1.005-1.025); Urobilinogen NEGATIVE mg/dL (0-1)
[2021-06-18 06:34] LABS: INFLUENZA A NEGATIVE (NEGATIVE); INFLUENZA B NEGATIVE (NEGATIVE)
[2021-06-18 07:17] VITALS: BP 111/60; PULSE 87
--- NOTE | 2021-06-18 08:49 | XRAY ---
Indication: Short of breath. Comparison: November 19, 2017. Portable chest remains slightly underinflated and clear again with incidental tiny left lung calcified granuloma. Heart not enlarged. Bony thorax intact. No new/acute findings.
[2021-06-20 19:24] VITALS: O2SAT 93
== END 2021-06-18 07:16 | disposition home or self-care (01) ==
LOC: ED 04:23
DX: B34.9 Viral infection, unspecified (principal); R05.9 Cough, unspecified; M79.18 Myalgia, other site; R53.83 Other fatigue; R51.9 Headache, unspecified; R06.02 Shortness of breath
CPT/HCPCS: 36000; 36415; 71045; 80053; 81001; 83605; 84703; 85025; 85379; 87040; 87400; 87651; 96360; 96374; 99284; J1885; A9270-GY

== ENCOUNTER 2021-09-12 15:14 | Emergency (ER) | payer OTHER ==
--- NOTE | 2021-09-12 15:27 | ERPHSYRPT ---
- History of Present Illness Time Seen by Provider: 09/12/21 15:26 Source: patient Exam Limitations: no limitations Physician History: This is a 31-year-old white female who states she has had "lung pain" for 2 weeks. She was seen in the walk-in clinic earlier today and underwent influenza a and B testing which were negative per her report. They did not do a Covid test and they did not do a chest x-ray or strep test. Patient has had associated cough as well. She has not had chest pain. She is not short of breath. She has had no abdominal pain. She had no vomiting or diarrhea. Patient states that she cannot take prednisone without any problems. Timing/Duration: week(s) (2) Cough Quality/Degree: mild Possible Cause: no prior episodes Modifying Factors: Improves With: coughing Associated Symptoms: cough, sore throat, No chest pain/soreness, No headache, No shortness of breath Allergies/Adverse Reactions: nifedipine [From Procardia] Allergy (Mild, Verified 06/18/21 04:35) methylprednisolone [From Medrol] Adverse Reaction (Intermediate, Verified 06/18/21 04:35) Home Medications: Bupropion HCl [Wellbutrin Xl] 300 mg PO DAILY 06/18/21 [History] armodafiniL [Armodafinil] 150 mg PO TID 09/12/21 [History] Hx Tetanus, Diphtheria Vaccination/Date Given: Yes Hx Influenza Vaccination/Date Given: No Hx Pneumococcal Vaccination/Date Given: No Travel Risk - International Travel Have you traveled outside of the country in past 3 weeks: No - Coronavirus Screening Are you exhibiting any of the following symptoms?: No Close contact with a COVID-19 positive Pt in past 14-21 Days: No - Vaccine Status Have you recieved a Covid-19 vaccination: No - Review of Systems Constitutional: No Symptoms Eyes: No Symptoms Ears, Nose, & Throat: Throat Pain Respiratory: Cough Cardiac: No Symptoms Abdominal/Gastrointestinal: No Symptoms Genitourinary Symptoms: No Symptoms Musculoskeletal: No Symptoms Skin: No Symptoms Neurological: No Symptoms Psychological: No Symptoms Endocrine: No Symptoms Hematologic/Lymphatic: No Symptoms Immunological/Allergic: No Symptoms All Other Systems: Reviewed and Negative - Past Medical History Pertinent Past Medical History: Yes Neurological History: No Pertinent History ENT History: No Pertinent History Cardiac History: No Pertinent History Respiratory History: No Pertinent History Endocrine Medical History: Other Musculoskeletal History: No Pertinent History GI Medical History: GERD, Gallbladder Disease History: Other Psycho-Social History: Anxiety, Attention Deficit Disorder, Depression Female Reproductive Disorders: No Pertinent History Other Medical History: FATTY LIVER, PRE DIABETIC. possible lupus - Past Surgical History Past Surgical History: Yes Neuro Surgical History: No Pertinent History Cardiac: No Pertinent History Respiratory: No Pertinent History Gastrointestinal: Cholecystectomy Genitourinary: No Pertinent History Musculoskeletal: No Pertinent History Female Surgical History: Section Other Surgical History: - Social History Smoking Status: Former smoker How long have you smoked: 1 YEAR Exposure to second hand smoke: No Drug Use: none Patient Lives Alone: Yes - Nursing Vital Signs Nursing Vital Signs: Initial Vital Signs Temperature 97.4 F 09/12/21 15:24 Pulse Rate 77 09/12/21 15:24 Respiratory Rate 18 09/12/21 15:24 Blood Pressure 144/77 09/12/21 15:24 O2 Sat by Pulse Oximetry 98 09/12/21 15:24 Pain Scale Pain Intensity 8 - Physical Exam General Appearance: no apparent distress, alert, anxiety Eye Exam: PERRL/EOMI, eyes nml inspection Ears, Nose, Throat Exam: normal ENT inspection, moist mucous membranes Neck Exam: normal inspection, non-tender, supple, full range of motion Respiratory Exam: normal breath sounds, lungs clear, airway intact, No chest tenderness, No respiratory distress Cardiovascular Exam: regular rate/rhythm, normal heart sounds, normal peripheral pulses Gastrointestinal/Abdomen Exam: No tenderness Pelvic Exam: not done Rectal Exam: not done Back Exam: normal inspection, normal range of motion, No CVA tenderness Extremity Exam: normal inspection, normal range of motion, pelvis stable Neurologic Exam: alert, oriented x 3, cooperative, 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, normal mood/affect, nml cerebellar function, nml station & gait, sensation nml Skin Exam: normal color, warm, dry Lymphatic Exam: No adenopathy SpO2 Interpretation: normal O2 Delivery: Room Air - Course Nursing assessment & vital signs reviewed: Yes Ordered Tests: Active Orders 24 hr Category Date Time Status CHEST 1 VIEW (PORTABLE) Stat Exams 09/12/21 15:28 Completed COVID AG-BINAX NOW RAPID TEST Stat Lab 09/12/21 15:44 Completed Lab/Rad Data: Laboratory Results 09/12/21 09/12/21 Range/Units 15:44 15:44 SARS-CoV-2 Ag (Rapid) NEGATIVE (NEGATIVE) Group A Strep Antibody NOT DETECTED (NEGATIVE) - Progress Progress: improved Air Movement: good Progress Note: 09/12/21 17:19 Chest x-ray shows no acute cardiopulmonary process. Blood Culture(s) Obtained: No Antibiotics given: No Counseled pt/family regarding: lab results, diagnosis, need for follow-up, rad results - Departure Departure Disposition: Home Clinical Impression: Bronchitis Condition: Stable Critical Care Time: No Referrals: OLGA GRAF IOS ARCHITECT [Primary Care Provider] - Follow up/PCP as directed Additional Instructions: Take medication as prescribed. Drink plenty of fluids. Follow-up with your primary care physician for persistent symptoms. Prescriptions: Hydrocodone/Acetaminophen [Hydrocodone-Acetamn 7.5-325/15] 10 ml PO Q8H PRN PRN #120 ml MDD 30 ML PRN Reason: Cough Prednisone 10 mg [Deltasone 10 mg] 10 mg PO TID #12 tablet
[2021-09-12 16:25] VITALS: O2SAT 98
--- NOTE | 2021-09-12 16:37 | XRAY ---
Indication: Cough. Comparison: July 31, 2021. Portable chest again demonstrates normal heart, lungs, and bony thorax with a few incidental tiny calcified granulomas.
[2021-09-12 17:17] LABS: COVID AG -BINAX NOW RAPID TEST NEGATIVE (NEGATIVE)
[2021-09-12 17:33] VITALS: BP 124/76; PULSE 78
== END 2021-09-12 17:34 | disposition home or self-care (01) ==
LOC: ED 15:14
DX: J20.9 Acute bronchitis, unspecified (principal); R05.9 Cough, unspecified; Z79.891 Long term (current) use of opiate analgesic; Z79.52 Long term (current) use of systemic steroids; K21.9 Gastro-esophageal reflux disease without esophagitis; R73.03 Prediabetes
CPT/HCPCS: 71045; 87651; 99000; 99284

== ENCOUNTER 2021-12-15 01:58 | Emergency (ER) | payer OTHER ==
[2021-12-15] MEDS ORDERED: Zofran 4 MG/2 ML VIAL IV ONE (02:10)
[2021-12-15] MEDS ORDERED: MORPHINE SULFATE 4 MG INJ IV ONE (02:10)
[2021-12-15 02:26] LABS: Basophil (Absolute #) 0.05 x10^3/uL (0-0.4); Eosinophil % 1.7 % (0.00-5.0); Eosinophil (Absolute #) 0.16 x10^3/uL (0-0.5); Hematocrit 40.9 % (35-47); Hemoglobin 13.8 g/dL (12.0-16.0); Lymphocyte (Absolute #) 2.77 x10^3/uL (1.0-4.6); Lymphocytes % 30.3 % (24.0-44.0); Mean Cell Volume 91.1 fL (78-100); Mean Corpuscular Hemoglobin 30.7 pg (26-32); Mean Corpuscular Hgb Concent. 33.7 g/dL (32-36); Monocyte (Absolute #) 0.45 x10^3/uL (0.0-1.3); Monocytes % 4.9 % (0.0-12.0); Neutrophil % 62.4 % (36.0-66.0); Platelet Count 301 x10^3/uL (150-450); Red Blood Count 4.49 x10^6/uL (4.1-5.4); Red Cell Distribution Width 12.7 % (11.5-14.0); White Blood Count 9.2 x10^3/uL (4.0-10.5)
--- NOTE | 2021-12-15 02:29 | ERPHSYRPT ---
- History of Present Illness Time Seen by Provider: 12/15/21 02:01 Historian: patient Exam Limitations: no limitations Patient Subjective Stated Complaint: pt states "I was at work and my chest started hurting and then my left arm/shoulder went numb and started hurting, and now my head hurts." Triage Nursing Assessment: Pt presents to ED in wheelchair with mother, pt ambulatory to bed by self, pt is alert and oriented x3, skin pwd, pt c/o center chest chest pain, L arm numbness, and headache that all started around 0015 at work, pt states "I was told that my heart skips a beat sometimes." Physician History: 31-year-old morbidly obese female presented to the ER with chief complaint of sudden onset substernal chest pain while she was working earlier with radiation to the left arm making some numbness and tingling feeling and having difficulty movements because of pain in the left shoulder. Later on she noticed that she was having generalized headache as well. Patient reports no palpitations but does report having bilateral lower chest pain with taking deep breath. No fever chills or sick contact reported. Denies any difficulty speech or visual disturbance. No nausea or vomiting. Timing/Duration: hour(s) (1.5), constant, sudden, worse Activities at Onset: activity Quality: sharpness Location: substernal Chest Pain Radiation: arm Severity of Pain-Max: severe Severity of Pain-Current: severe Modifying Factors: Worsens With: exertion, movement Associated Symptoms: hurts to breathe, headache, No nausea, No vomiting, No palpitations, No abdominal pain, No shortness of breath, No cough, No diaphoresis, No fatigue, No weakness, No swelling/lump in chest, No syncope, No dizziness, No edema, No back pain Prior Chest Pain/Cardiac Workup: no prior chest pain, no prior cardiac workup Nitro Today/Relief: no nitro taken today Aspirin Treatment Today: no aspirin today Allergies/Adverse Reactions: nifedipine [From Procardia] Allergy (Mild, Verified 12/15/21 02:09) methylprednisolone [From Medrol] Adverse Reaction (Intermediate, Verified 12/15/21 02:09) Home Medications: Bupropion HCl [Wellbutrin Xl] 300 mg PO DAILY 06/18/21 [History] armodafiniL [Armodafinil] 150 mg PO TID 09/12/21 [History] Hx Tetanus, Diphtheria Vaccination/Date Given: Yes Hx Influenza Vaccination/Date Given: No Hx Pneumococcal Vaccination/Date Given: No Immunizations Up to Date: Yes Travel Risk - International Travel Have you traveled outside of the country in past 3 weeks: No - Coronavirus Screening Are you exhibiting any of the following symptoms?: No Close contact with a COVID-19 positive Pt in past 14-21 Days: No - Vaccine Status Have you recieved a Covid-19 vaccination: No - Review of Systems Constitutional: No Symptoms Eyes: No Symptoms Ears, Nose, & Throat: No Symptoms Respiratory: No Symptoms Cardiac: Chest Pain Abdominal/Gastrointestinal: No Symptoms Genitourinary Symptoms: No Symptoms Musculoskeletal: No Symptoms Skin: No Symptoms Neurological: Headache, Sensory Changes Psychological: Anxiety Endocrine: No Symptoms Hematologic/Lymphatic: No Symptoms Immunological/Allergic: No Symptoms - Past Medical History Pertinent Past Medical History: Yes Neurological History: No Pertinent History ENT History: No Pertinent History Cardiac History: No Pertinent History Respiratory History: No Pertinent History Endocrine Medical History: Other Musculoskeletal History: No Pertinent History GI Medical History: GERD, Gallbladder Disease History: Other Psycho-Social History: Anxiety, Attention Deficit Disorder, Depression Female Reproductive Disorders: No Pertinent History Other Medical History: FATTY LIVER, PRE DIABETIC, lupus, heart beat - Past Surgical History Past Surgical History: Yes Neuro Surgical History: No Pertinent History Cardiac: No Pertinent History Respiratory: No Pertinent History Gastrointestinal: Cholecystectomy Genitourinary: No Pertinent History Musculoskeletal: No Pertinent History Female Surgical History: Section Other Surgical History: - Social History Smoking Status: Never smoker How long have you smoked: 1 YEAR Exposure to second hand smoke: No Drug Use: none Patient Lives Alone: No - Female History Hx Last Menstrual Period: IUD Hx Now: No - Nursing Vital Signs Nursing Vital Signs: Initial Vital Signs Temperature 97.4 F 12/15/21 02:10 Pulse Rate 85 12/15/21 02:10 Respiratory Rate 16 12/15/21 02:10 Blood Pressure 136/93 12/15/21 02:10 O2 Sat by Pulse Oximetry 97 12/15/21 02:10 Pain Scale Pain Intensity 4 - Physical Exam General Appearance: no apparent distress, alert, anxiety Eye Exam: PERRL/EOMI Ears, Nose, Throat Exam: normal ENT inspection, TMs normal, pharynx normal, moist mucous membranes Neck Exam: normal inspection, non-tender, supple, full range of motion Respiratory Exam: normal breath sounds, lungs clear Cardiovascular Exam: regular rate/rhythm, normal heart sounds Gastrointestinal/Abdomen Exam: soft, normal bowel sounds, No tenderness Back Exam: normal inspection, rash Extremity Exam: normal inspection, limited range of motion, tenderness (Left shoulder/left upper arm) Neurologic Exam: alert, oriented x 3 (Left shoulder), cooperative, 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, nml cerebellar function, sensation nml, No normal mood/affect (Blunt), No motor deficits Skin Exam: normal color SpO2 Interpretation: normal SpO2: 97 O2 Delivery: Room Air - Course EKG Interpreted by Me: RATE (82), Sinus Rhythm, NORMAL AXIS, NORMAL INTERVALS, NORMAL QRS Ordered Tests: Active Orders 24 hr Category Date Time Status Sand Buffer STAT Care 12/15/21 02:11 Active EKG-ER Only STAT Care 12/15/21 02:10 Active IV Insertion STAT Care 12/15/21 02:10 Active Oxygen-ED Only Nasal Cannula 2 lpm Care 12/15/21 02:10 Active CHEST 1 VIEW (PORTABLE) Stat Exams 12/15/21 02:11 Taken HEAD WITHOUT CONTRAST [CT] Stat Exams 12/15/21 02:11 Taken CBC W DIFF Stat Lab 12/15/21 02:20 Completed CK-Creatinine Phosphokinase Stat Lab 12/15/21 02:20 Completed CMP Stat Lab 12/15/21 02:20 Completed D-DIMER QUANTITATIVE Stat Lab 12/15/21 02:20 Completed HCG QUALITATIVE,SERUM Stat Lab 12/15/21 02:20 Completed NT PRO BNP Stat Lab 12/15/21 02:20 Completed TROPONIN Q3H Lab 12/15/21 02:20 Completed TROPONIN Q3H Lab 12/15/21 05:30 Completed TROPONIN Q3H Lab 12/15/21 08:15 Ordered TROPONIN Q3H Lab 12/15/21 11:15 Ordered TROPONIN Q3H Lab 12/15/21 14:15 Ordered Medication Summary Discontinued Medications Generic Name Dose Route Start Last Admin Trade Name Freq PRN Reason Stop Dose Admin Aspirin 324 mg 12/15/21 04:17 12/15/21 04:19 Aspirin 81 Mg Tab.Chew PO 12/15/21 04:18 324 mg STAT ONE Administration Diphenhydramine HCl 25 mg 12/15/21 06:02 12/15/21 06:04 Diphenhydramine Hcl 50 Mg/Ml Vial IV 12/15/21 06:03 25 mg STAT ONE Administration Diphenhydramine HCl Confirm 12/15/21 06:03 Diphenhydramine Hcl 50 Mg/Ml Vial Administered 12/15/21 06:04 Dose 50 mg .ROUTE .STK-MED ONE Ketorolac Tromethamine 30 mg 12/15/21 06:02 12/15/21 06:04 Ketorolac Tromethamine 30 Mg/Ml Inj IV 12/15/21 06:03 30 mg STAT ONE Administration Ketorolac Tromethamine Confirm 12/15/21 06:03 Ketorolac Tromethamine 30 Mg/Ml Inj Administered 12/15/21 06:04 Dose 30 mg .ROUTE .STK-MED ONE Metoclopramide HCl 10 mg 12/15/21 06:02 12/15/21 06:04 Metoclopramide Hcl 10 Mg/2 Ml Vial IV 12/15/21 06:03 10 mg STAT ONE Administration Metoclopramide HCl Confirm 12/15/21 06:04 Metoclopramide Hcl 10 Mg/2 Ml Vial Administered 12/15/21 06:05 Dose 10 mg .ROUTE .STK-MED ONE Morphine Sulfate 4 mg 12/15/21 02:10 12/15/21 02:38 Morphine Sulfate 4 Mg/Ml Injection IV 12/15/21 02:11 4 mg STAT ONE Administration Morphine Sulfate Confirm 12/15/21 02:38 Morphine Sulfate 4 Mg/Ml Injection Administered 12/15/21 02:39 Dose 4 mg .ROUTE .STK-MED ONE Ondansetron HCl 4 mg 12/15/21 02:10 12/15/21 02:38 Ondansetron Hcl 4 Mg/2 Ml Vial IV 12/15/21 02:11 4 mg STAT ONE Administration Ondansetron HCl Confirm 12/15/21 02:37 Ondansetron Hcl 4 Mg/2 Ml Vial Administered 12/15/21 02:38 Dose 4 mg .ROUTE .STK-MED ONE Lab/Rad Data: Laboratory Result Diagrams 12/15/21 02:20 12/15/21 02:20 Laboratory Results 12/15/21 12/15/21 12/15/21 Range/Units 05:30 02:20 02:20 WBC (4.0-10.5) x10^3/uL RBC (4.1-5.4) x10^6/uL Hgb (12.0-16.0) g/dL Hct (35-47) % MCV (78-100) fL MCH (26-32) pg MCHC (32-36) g/dL RDW (11.5-14.0) % Plt Count (150-450) x10^3/uL MPV (7.5-11.0) fL Gran % (36.0-66.0) % Immature Gran % (Auto) (0.00-0.4) % Nucleat RBC Rel Count (0.00-0.1) % Eos # (Auto) (0-0.5) x10^3/uL Immature Gran # (Auto) (0.00-0.03) x10^3u/L Absolute Lymphs (auto) (1.0-4.6) x10^3/uL Absolute Monos (auto) (0.0-1.3) x10^3/uL Absolute Nucleated RBC (0.00-0.01) x10^3u/L Lymphocytes % (24.0-44.0) % Monocytes % (0.0-12.0) % Eosinophils % (0.00-5.0) % Basophils % (0.0-0.4) % Absolute Granulocytes (1.4-6.9) x10^3/uL Basophils # (0-0.4) x10^3/uL D-Dimer (0.0-0.50) mg/L Sodium (137-145) mmol/L Potassium (3.5-5.1) mmol/L Chloride (98-107) mmol/L Carbon Dioxide (22-30) mmol/L Anion Gap (5-15) MEQ/L BUN (7-17) mg/dL Creatinine (0.52-1.04) mg/dL Estimated GFR ML/MIN Glucose (74-106) mg/dL Calcium (8.4-10.2) mg/dL Total Bilirubin (0.2-1.3) mg/dL AST (14-36) U/L ALT (0-35) U/L Alkaline Phosphatase (38-126) U/L Creatine Kinase (30-135) U/L Troponin I < 0.012 < 0.012 (0.000-0.034) ng/mL NT-Pro-B Natriuret Pep (0-450) pg/mL Serum Total Protein (6.3-8.2) g/dL Albumin (3.5-5.0) g/dL Serum , Qual NEGATIVE (Negative) 12/15/21 12/15/21 12/15/21 Range/Units 02:20 02:20 02:20 WBC 9.2 (4.0-10.5) x10^3/uL RBC 4.49 (4.1-5.4) x10^6/uL Hgb 13.8 (12.0-16.0) g/dL Hct 40.9 (35-47) % MCV 91.1 (78-100) fL MCH 30.7 (26-32) pg MCHC 33.7 (32-36) g/dL RDW 12.7 (11.5-14.0) % Plt Count 301 (150-450) x10^3/uL MPV 11.0 (7.5-11.0) fL Gran % 62.4 (36.0-66.0) % Immature Gran % (Auto) 0.2 (0.00-0.4) % Nucleat RBC Rel Count 0.0 (0.00-0.1) % Eos # (Auto) 0.16 (0-0.5) x10^3/uL Immature Gran # (Auto) 0.02 (0.00-0.03) x10^3u/L Absolute Lymphs (auto) 2.77 (1.0-4.6) x10^3/uL Absolute Monos (auto) 0.45 (0.0-1.3) x10^3/uL Absolute Nucleated RBC 0.00 (0.00-0.01) x10^3u/L Lymphocytes % 30.3 (24.0-44.0) % Monocytes % 4.9 (0.0-12.0) % Eosinophils % 1.7 (0.00-5.0) % Basophils % 0.5 (0.0-0.4) % Absolute Granulocytes 5.70 (1.4-6.9) x10^3/uL Basophils # 0.05 (0-0.4) x10^3/uL D-Dimer 0.19 (0.0-0.50) mg/L Sodium 140 (137-145) mmol/L Potassium 3.6 (3.5-5.1) mmol/L Chloride 106 (98-107) mmol/L Carbon Dioxide 23 (22-30) mmol/L Anion Gap 14.7 (5-15) MEQ/L BUN 11 (7-17) mg/dL Creatinine 0.82 (0.52-1.04) mg/dL Estimated GFR > 60.0 ML/MIN Glucose 129 H (74-106) mg/dL Calcium 9.5 (8.4-10.2) mg/dL Total Bilirubin 0.50 (0.2-1.3) mg/dL AST 65 H (14-36) U/L ALT 129 H (0-35) U/L Alkaline Phosphatase 94 (38-126) U/L Creatine Kinase 93 (30-135) U/L Troponin I (0.000-0.034) ng/mL NT-Pro-B Natriuret Pep 34.6 (0-450) pg/mL Serum Total Protein 7.7 (6.3-8.2) g/dL Albumin 4.5 (3.5-5.0) g/dL Serum , Qual (Negative) - Progress Progress: improved Air Movement: good Progress Note: 12/15/21 06:38 31-year-old is evaluated for sudden onset chest pain with radiation to the left arm with arm pain and headache. Nonfocal neuro exam, reproducible pain with left shoulder movement. Given symptomatic treatment for pain, on reevaluation feeling better. Ruled out acute coronary syndrome with negative troponins x2. EKG no ST elevations and negative D-dimers. Chest x-ray no acute findings reviewed by me, official report is pending. Obtain CT head which is negative for any acute findings. Patient is symptom-free on reevaluation. Low heart score. Do not think she needs to be admitted but with recommend outpatient cardiology follow-up. Discussed signs symptoms of worsening needing return to ER which she seems understanding. Blood Culture(s) Obtained: No Antibiotics given: No Counseled pt/family regarding: lab results, diagnosis, need for follow-up, rad results - Departure Departure Disposition: Home Clinical Impression: Atypical chest pain, Headache Condition: Stable Critical Care Time: No Referrals: JULIO CÉSAR GIRALDO NP [Primary Care Provider] - Follow Up with PCP/3 days DANIKA WRIGHT [CONSULTING PHYSICIAN] - Follow up/PCP as directed (Call today for appointment for reevaluation) Instructions: Angina (DC), Chest Pain (DC) Additional Instructions: Take Tylenol/ibuprofen as needed. Follow-up with primary care and cardiology for reevaluation. Return to ER for any worsening.
[2021-12-15] MEDS ORDERED: Zofran 4 MG/2 ML VIAL ONE (02:37)
[2021-12-15] MEDS ORDERED: MORPHINE SULFATE 4 MG INJ ONE (02:38)
[2021-12-15 02:50] LABS: ALBUMIN 4.5 g/dL (3.5-5.0); ALKALINE PHOSPHATASE 94 U/L (38-126); ANION GAP 14.7 MEQ/L (5-15); BLOOD UREA NITROGEN 11 mg/dL (7-17); CHLORIDE 106 mmol/L (98-107); CK-Creatinine Phosphokinase 93 U/L (30-135); Calcium 9.5 mg/dL (8.4-10.2); Carbon Dioxide 23 mmol/L (22-30); Creatinine 1 0.82 mg/dL (0.52-1.04); EST GLOMERULAR FILTRATION RATE > 60.0 ML/MIN; Glucose 129 mg/dL (74-106); NT PRO BNP 34.6 pg/mL (0-450); Potassium 3.6 mmol/L (3.5-5.1); SGOT/AST 65 U/L (14-36); SGPT/ALT 129 U/L (0-35); SODIUM 140 mmol/L (137-145); Total Protein 7.7 g/dL (6.3-8.2)
[2021-12-15] MEDS ORDERED: BABY ASPIRIN 81 MG CHEW PO ONE (04:17)
[2021-12-15] MEDS ORDERED: Reglan 10 MG/2 ML IV ONE (06:02)
[2021-12-15] MEDS ORDERED: BENADRYL 50 MG/ML IV ONE (06:02)
[2021-12-15] MEDS ORDERED: TORAdol 30 mg Injection IV ONE (06:02)
[2021-12-15] MEDS ORDERED: BENADRYL 50 MG/ML ONE (06:03)
[2021-12-15] MEDS ORDERED: TORAdol 30 mg Injection ONE (06:03)
[2021-12-15] MEDS ORDERED: Reglan 10 MG/2 ML ONE (06:04)
[2021-12-15 06:05] VITALS: BP 105/75
[2021-12-15 06:46] VITALS: PULSE 85; O2SAT 96
--- NOTE | 2021-12-15 09:17 | XRAY ---
Indication: Chest pain, headache, dizziness, nausea, and left arm numbness. Multiple contiguous axial images obtained through the head without contrast. Comparison: December 04, 2014 Normal appearing brain parenchyma, ventricles, and bony calvarium. Visualized paranasal sinuses and mastoid air cells are clear. Impression: Continued normal CT head without contrast exam. Comment: Preliminary interpretation made by [facility]. No critical discrepancy.
--- NOTE | 2021-12-15 09:19 | XRAY ---
Indication: Chest pain, left arm numbness, headache, dizziness, nausea. Comparison: September 12, 2021. Portable apical lordotic chest less inflated crowding lung bases. Stable incidental tiny calcified granulomas. Remaining heart, lungs, and bony thorax normal.
== END 2021-12-15 06:52 | disposition home or self-care (01) ==
LOC: ED 01:58
DX: R07.89 Other chest pain (principal); R51.9 Headache, unspecified; M25.512 Pain in left shoulder; Z79.899 Other long term (current) drug therapy; Z28.310 Unvaccinated for COVID-19
CPT/HCPCS: 36000; 36415; 70450; 71045; 80053; 82550; 83880; 84484; 84703; 85025; 85379; 93005; 93041; 96374; 99285; J1200; J1885; J2270; J2405; A9270-GY

== ENCOUNTER 2022-02-03 04:55 | Emergency (ER) | payer OTHER ==
--- NOTE | 2022-02-03 04:57 | ERPHSYRPT ---
- History of Present Illness Time Seen by Provider: 02/03/22 04:57 Source: patient, family Exam Limitations: no limitations Physician History: This is a 31-year-old white female that is obese and is a patient of nurse practitioner Marco Antonio. She presents with left knee pain anteriorly. Patient [place] the [place] last [place]. She started back at her usual job and pain worsened in the last 24 hours. There was some associated bruising and swelling present. She has been ambulating on it without difficulty. Patient has history of gastroesophageal reflux disease, anxiety and ADD. Occurred: last week Quality: aching Severity of Pain-Max: moderate Severity of Pain-Current: mild (Moderate) Lower Extremities Pain: knee: left Modifying Factors: Improves With: movement Associated Symptoms: other (Hurts to ambulate. Can do so) Allergies/Adverse Reactions: nifedipine [From Procardia] Allergy (Mild, Verified 02/03/22 05:25) methylprednisolone [From Medrol] Adverse Reaction (Intermediate, Verified 02/03/22 05:25) Home Medications: Bupropion HCl [Wellbutrin Xl] 300 mg PO DAILY 06/18/21 [History] armodafiniL [Armodafinil] 150 mg PO TID 09/12/21 [History] Omeprazole 40 mg PO DAILY 02/03/22 [History] Hx Tetanus, Diphtheria Vaccination/Date Given: Yes Hx Influenza Vaccination/Date Given: No Hx Pneumococcal Vaccination/Date Given: No Travel Risk - International Travel Have you traveled outside of the country in past 3 weeks: No - Coronavirus Screening Are you exhibiting any of the following symptoms?: No Close contact with a COVID-19 positive Pt in past 14-21 Days: No - Vaccine Status Have you recieved a Covid-19 vaccination: No - Review of Systems Constitutional: No Symptoms Eyes: No Symptoms, Foreign Body Sensation Respiratory: No Symptoms Cardiac: No Symptoms Abdominal/Gastrointestinal: No Symptoms Genitourinary Symptoms: No Symptoms Musculoskeletal: Fall, Injury (Left knee anteriorly) Skin: No Symptoms Neurological: No Symptoms Psychological: No Symptoms Endocrine: No Symptoms Hematologic/Lymphatic: No Symptoms Immunological/Allergic: No Symptoms All Other Systems: Reviewed and Negative - Past Medical History Pertinent Past Medical History: Yes Neurological History: No Pertinent History ENT History: No Pertinent History Cardiac History: No Pertinent History Respiratory History: No Pertinent History Endocrine Medical History: Other Musculoskeletal History: No Pertinent History GI Medical History: GERD, Gallbladder Disease History: Other Psycho-Social History: Anxiety, Attention Deficit Disorder, Depression Female Reproductive Disorders: No Pertinent History Other Medical History: FATTY LIVER, PRE DIABETIC, lupus, heart beat - Past Surgical History Past Surgical History: Yes Neuro Surgical History: No Pertinent History Cardiac: No Pertinent History Respiratory: No Pertinent History Gastrointestinal: Cholecystectomy Genitourinary: No Pertinent History Musculoskeletal: No Pertinent History Female Surgical History: Section Other Surgical History: - Social History Smoking Status: Never smoker How long have you smoked: 1 YEAR Exposure to second hand smoke: No Drug Use: none Patient Lives Alone: No - Nursing Vital Signs Nursing Vital Signs: Initial Vital Signs Temperature 96.3 F 02/03/22 05:17 Pulse Rate 84 02/03/22 05:17 Respiratory Rate 20 02/03/22 05:17 Blood Pressure 124/94 02/03/22 05:17 O2 Sat by Pulse Oximetry 98 02/03/22 05:17 Pain Scale Pain Intensity 8 - Physical Exam General Appearance: no apparent distress, alert, anxiety Eyes, Ears, Nose, Throat Exam: normal ENT inspection, moist mucous membranes Neck Exam: normal inspection, non-tender, supple, full range of motion Cardiovascular/Respiratory Exam: chest non-tender, no respiratory distress Gastrointestinal/Abdominal Exam: non-tender Back Exam: normal inspection, normal range of motion, No CVA tenderness, No vertebral tenderness Hips Exam: bilateral: non-tender, normal inspection, normal range of motion, no evidence of injury Legs Exam: bilateral leg: non-tender, normal inspection, normal range of motion, no evidence of injury Knees Exam: right knee: non-tender, normal inspection, normal range of motion, no evidence of injury, left knee: ecchymosis, soft tissue tenderness, swelling Ankle Exam: bilateral ankle: non-tender, normal inspection, normal range of motion, no evidence of injury Foot Exam: bilateral foot: non-tender, normal inspection, normal range of motion, no evidence of injury Neuro/Tendon Exam: normal sensation, normal motor functions, normal tendon functions Mental Status Exam: alert, oriented x 3, cooperative Skin Exam: normal color, warm, dry SpO2 Interpretation: normal O2 Delivery: Room Air - Course Nursing assessment & vital signs reviewed: Yes Ordered Tests: Active Orders 24 hr Category Date Time Status KNEE (3 VIEWS) Stat Exams 02/03/22 05:35 Taken - Progress Progress: unchanged, pain not gone completely, re-examined Progress Note: 02/03/22 06:17 X-ray left knee shows no acute fracture or dislocation. Counseled pt/family regarding: diagnosis, need for follow-up, rad results - Departure Departure Disposition: Home Clinical Impression: Contusion of left knee, initial encounter Condition: Stable Critical Care Time: No Referrals: JULIO CÉSAR GIRALDO NP [Primary Care Provider] - Follow up/PCP as directed Additional Instructions: Ice pack to left anterior knee 3 times a day for the next 48 hours. Follow-up with [facility] orthopedic clinic Saturday through Saturday 8 AM to 10 AM if your symptoms persist. Use Tylenol and ibuprofen as discussed for pain and swelling control. Weightbearing as tolerated
[2022-02-03 05:25] VITALS: BP 124/94; O2SAT 98
[2022-02-03 06:13] VITALS: PULSE 75
[2022-02-03] MEDS ORDERED: NORCO 5/325 MG PO ONE (06:17)
[2022-02-03] MEDS ORDERED: NORCO 5/325 MG ONE (06:25)
--- NOTE | 2022-02-03 07:50 | XRAY ---
Indication: Pain and swelling following fall. Comparison: None 3 view left knee demonstrates mild medial joint space narrowing. No other bony, articular, or soft tissue abnormalities.
== END 2022-02-03 06:34 | disposition home or self-care (01) ==
LOC: ED 04:55
DX: S80.02XA Contusion of left knee, initial encounter (principal); W19.XXXA Unspecified fall, initial encounter; Y92.830 Public park as the place of occurrence of the external cause; M25.562 Pain in left knee; Z79.899 Other long term (current) drug therapy; Z28.310 Unvaccinated for COVID-19
CPT/HCPCS: 73562; 99282; A9270-GY

== ENCOUNTER 2022-03-17 18:36 | Emergency (ER) | payer BC, OTHER ==
--- NOTE | 2022-03-17 18:37 | ERPHSYRPT ---
- History of Present Illness Time Seen by Provider: 03/17/22 18:36 Historian: patient Exam Limitations: no limitations Physician History: This is a 31-year-old overweight white female patient who had a respiratory issue and was taking erythromycin per her report for this condition. Approxi-2 to 3 days ago patient noticed some dysuria and started on [id number] Azo medication and began drinking plenty of water and cranberry juice. However, the dysuria and urinary frequency persisted. Today, she started having some mild left flank pain. Timing/Duration: day(s) (2 to 3 days), worse Abdominal Pain Onset Location: flank (Mild left side) Pain Radiation: flank (Mild left side) Severity of Pain-Max: mild Severity of Pain-Current: mild Modifying Factors: Improves With: nothing Associated Symptoms: back (Mild left side), other (Dysuria and urinary frequency) Allergies/Adverse Reactions: nifedipine [From Procardia] Allergy (Mild, Verified 03/17/22 18:45) methylprednisolone [From Medrol] Adverse Reaction (Intermediate, Verified 03/17/22 18:45) Home Medications: Bupropion HCl [Wellbutrin Xl] 300 mg PO DAILY 06/18/21 [History] armodafiniL [Armodafinil] 150 mg PO TID 09/12/21 [History] Omeprazole 40 mg PO DAILY 02/03/22 [History] Hx Tetanus, Diphtheria Vaccination/Date Given: Yes Hx Influenza Vaccination/Date Given: No Hx Pneumococcal Vaccination/Date Given: No Travel Risk - International Travel Have you traveled outside of the country in past 3 weeks: No - Coronavirus Screening Are you exhibiting any of the following symptoms?: No Close contact with a COVID-19 positive Pt in past 14-21 Days: No - Vaccine Status Have you recieved a Covid-19 vaccination: No - Review of Systems Constitutional: No Symptoms Eyes: No Symptoms Ears, Nose, & Throat: No Symptoms Respiratory: No Symptoms Cardiac: No Symptoms Abdominal/Gastrointestinal: Constipation Genitourinary Symptoms: Dysuria, Frequency Musculoskeletal: No Symptoms Skin: No Symptoms Neurological: No Symptoms Psychological: No Symptoms Endocrine: Excessive Sweating Hematologic/Lymphatic: No Symptoms Immunological/Allergic: No Symptoms All Other Systems: Reviewed and Negative - Past Medical History Pertinent Past Medical History: Yes Neurological History: No Pertinent History ENT History: No Pertinent History Cardiac History: Arrhythmia Respiratory History: Other Endocrine Medical History: Other Musculoskeletal History: Rheumatoid Arthritis GI Medical History: GERD, Gallbladder Disease History: Other Psycho-Social History: Anxiety, Attention Deficit Disorder, Depression Female Reproductive Disorders: No Pertinent History Other Medical History: HX OF COVID IN JUNE. NOT VACCINATED - PER PATIENT DUE TO RHUEMATOID ARTHRITIS. PMHX FATTY LIVER. PER PATIENT HAS AN "EXTRA HEART BEAT" - Past Surgical History Past Surgical History: Yes Neuro Surgical History: No Pertinent History Cardiac: No Pertinent History Respiratory: No Pertinent History Gastrointestinal: Cholecystectomy Genitourinary: No Pertinent History Musculoskeletal: No Pertinent History Female Surgical History: Section Other Surgical History: - Social History Smoking Status: Never smoker How long have you smoked: 1 YEAR Exposure to second hand smoke: No Drug Use: none Patient Lives Alone: No - Nursing Vital Signs Nursing Vital Signs: Initial Vital Signs Temperature 97.6 F 03/17/22 18:46 Pulse Rate 80 03/17/22 18:46 Respiratory Rate 17 03/17/22 18:46 Blood Pressure 134/89 03/17/22 18:46 O2 Sat by Pulse Oximetry 97 03/17/22 18:46 Pain Scale Pain Intensity 7 - Physical Exam General Appearance: no apparent distress, alert, anxiety, obese Eye Exam: PERRL/EOMI, eyes nml inspection Ears, Nose, Throat Exam: normal ENT inspection, moist mucous membranes Neck Exam: normal inspection, non-tender, supple, full range of motion Respiratory Exam: airway intact, No chest tenderness, No respiratory distress Gastrointestinal/Abdomen Exam: No tenderness Pelvic Exam: not done Rectal Exam: not done Back Exam: normal inspection, normal range of motion, No CVA tenderness, No vertebral tenderness Extremity Exam: normal inspection, normal range of motion, pelvis stable Neurologic Exam: alert, oriented x 3, cooperative, 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, normal mood/affect, nml cerebellar function, nml station & gait, sensation nml Skin Exam: normal color, warm, dry Lymphatic Exam: No adenopathy SpO2 Interpretation: normal - Course Nursing assessment & vital signs reviewed: Yes Ordered Tests: Active Orders 24 hr Category Date Time Status HCG,QUALITATIVE URINE Stat Lab 03/17/22 18:44 Completed UA W/RFX CULTURE Stat Lab 03/17/22 18:41 Results Medication Summary Discontinued Medications Generic Name Dose Route Start Last Admin Trade Name Freq PRN Reason Stop Dose Admin Ceftriaxone Sodium 1,000 mg 03/17/22 19:10 Ceftriaxone Sodium 1000 Mg Inj Vial IM 03/17/22 19:11 STAT ONE Phenazopyridine HCl 200 mg 03/17/22 19:10 Phenazopyridine Hcl 200 Mg Tablet PO 03/17/22 19:11 STAT ONE Lab/Rad Data: Laboratory Results 03/17/22 03/17/22 Range/Units 18:44 18:41 Urinalys Dipstick Clnc MAIN LAB Urine Color ORANGE (YELLOW) Urine Appearance CLEAR (CLEAR) Urine pH 5.0 (5-6) Ur Specific [place] 1.010 (1.005-1.025) POC Urine Protein Conf 100 (Negative) Urine Ketones TRACE (NEGATIVE) Urine Nitrite POSITIVE (NEGATIVE) Urine Bilirubin NEGATIVE (NEGATIVE) Urine Urobilinogen 1 (0-1) mg/dL Urine Leukocytes LARGE (NEGATIVE) Urine WBC (Auto) Pending Urine RBC (Auto) Pending U Epithel Cells (Auto) Pending Urine Bacteria (Auto) Pending Urine RBC MODERATE (0-5) Lalito/ul Ur Culture Indicated? Pending Urine Glucose 100 (NEGATIVE) mg/dL Urine HCG, Qual NEGATIVE (Negative) - Progress Progress: unchanged Counseled pt/family regarding: lab results, diagnosis, need for follow-up - Departure Departure Disposition: Home Clinical Impression: UTI (urinary tract infection) Condition: Stable Critical Care Time: No Referrals: JULIO CÉSAR GIRALDO NP [Primary Care Provider] - Follow up/PCP as directed Additional Instructions: Drink plenty of clear liquids. Continue cranberry juice. Stop your other antibiotic. Stop Azo. Take your new medications as prescribed. Follow-up with your primary care physician for further evaluation and management. May use Tylenol and ibuprofen for pain control and fever control. Prescriptions: Ciprofloxacin [Cipro 500 MG] 500 mg PO BID #14 tablet Phenazopyridine HCl 200 mg [Pyridium 200 mg] 200 mg PO TID #6 tablet
[2022-03-17 19:00] LABS: Appearance CLEAR (CLEAR); Bilirubin NEGATIVE (NEGATIVE); Dipstick done @ ? MAIN LAB; Glucose 100 mg/dL (NEGATIVE); Ketones TRACE (NEGATIVE); Nitrite POSITIVE (NEGATIVE); Protein,Urine Dip 100 (Negative); RBC MODERATE Ery/ul (0-5); Urobilinogen 1 mg/dL (0-1)
[2022-03-17 19:02] LABS: Bacteria MODERATE /HPF (NEGATIVE); Epithelial Cells RARE /HPF (FEW); Mucus SLIGHT /HPF (NEGATIVE); RBC 26-50 /HPF (0-2); WBC >100 /HPF (0-5)
[2022-03-17] MEDS ORDERED: PYRIDIUM 200 MG PO ONE (19:10)
[2022-03-17] MEDS ORDERED: Rocephin 1000 MG INJ IM ONE (19:10)
[2022-03-17] MEDS ORDERED: XYLOCAINE 1% HCL 20 ML MDV ONE (19:13)
[2022-03-17] MEDS ORDERED: PYRIDIUM 200 MG ONE (19:13)
[2022-03-17] MEDS ORDERED: Rocephin 1000 MG INJ ONE (19:13)
[2022-03-17 19:18] LABS: Urine Cultured Indicated? YES
[2022-03-17 19:37] VITALS: BP 135/95; PULSE 72; O2SAT 98
== END 2022-03-17 19:37 | disposition home or self-care (01) ==
LOC: ED 18:36
DX: N39.0 Urinary tract infection, site not specified (principal); R30.0 Dysuria; R35.0 Frequency of micturition; R10.9 Unspecified abdominal pain; Z79.899 Other long term (current) drug therapy; Z86.16 Personal history of COVID-19
CPT/HCPCS: 81015; 81025; 87077; 87086; 87186; 96372; 99283; J0696; A9270-GY

== ENCOUNTER 2022-04-29 22:12 | Emergency (ER) | payer BC, OTHER ==
[2022-04-29 22:20] VITALS: BP 144/92; PULSE 80; O2SAT 96
[2022-04-29] MEDS ORDERED: ZOFRAN ODT 4 MG PO ONE (22:30)
[2022-04-29] MEDS ORDERED: ZOFRAN ODT 4 MG ONE (22:32)
--- NOTE | 2022-04-29 22:39 | ERPHSYRPT ---
- History of Present Illness Time Seen by Provider: 04/29/22 22:22 Source: patient Exam Limitations: no limitations Patient Subjective Stated Complaint: has sinusitis, fever and vomiting x1 at work this evening. Triage Nursing Assessment: pt ambulated into ER without diff. Pt was diagnosed with sinusitis on 04/26/22 at [facility]. Pt was given doxycycline and a zpak. Pt c/o being feverish this evening and vomited x1 at work. Pt has a headache and some light headedness at times. Pt is afebrile at this time. Physician History: 31-year-old female with recent sinus infection, was evaluated outpatient and currently on Doxy and Zithromax along with Flonase presented in the ER with still having frontal headache, congestion and feeling nauseated today with one- time vomiting nonprojectile, nonbilious. She feels mildly nauseated now. Also reports subjective feeling of fever and chills although she is afebrile currently. No difficulty breathing. She was also given steroid shot few days ago at urgent care. Timing/Duration: day(s) (4), gradual onset, worse Cough Quality/Degree: mild, dry cough Possible Cause: unknown cause Associated Symptoms: nasal congestion, sinus infection Allergies/Adverse Reactions: nifedipine [From Procardia] Allergy (Mild, Verified 04/29/22 22:28) methylprednisolone [From Medrol] Adverse Reaction (Intermediate, Verified 04/29/22 22:28) Home Medications: Bupropion HCl [Wellbutrin Xl] 300 mg PO DAILY 06/18/21 [History] armodafiniL [Armodafinil] 150 mg PO TID 09/12/21 [History] Omeprazole 40 mg PO DAILY 02/03/22 [History] Doxycycline Hyclate 100 mg [Vibramycin 100 MG] 100 mg PO BID 04/29/22 [History] Hx Tetanus, Diphtheria Vaccination/Date Given: Yes Hx Influenza Vaccination/Date Given: No Hx Pneumococcal Vaccination/Date Given: No Immunizations Up to Date: Yes Travel Risk - International Travel Have you traveled outside of the country in past 3 weeks: No - Coronavirus Screening Are you exhibiting any of the following symptoms?: Yes Symptoms: Fever, Vomiting/Diarrhea Close contact with a COVID-19 positive Pt in past 14-21 Days: No - Vaccine Status Have you recieved a Covid-19 vaccination: No - Review of Systems Constitutional: Fever Eyes: No Symptoms Ears, Nose, & Throat: Nose Congestion, Sinus Drainage Respiratory: No Symptoms Cardiac: No Symptoms Abdominal/Gastrointestinal: No Symptoms Genitourinary Symptoms: No Symptoms Musculoskeletal: No Symptoms Neurological: Headache Psychological: No Symptoms Endocrine: No Symptoms Hematologic/Lymphatic: No Symptoms - Past Medical History Pertinent Past Medical History: Yes Neurological History: No Pertinent History ENT History: No Pertinent History Cardiac History: Arrhythmia Respiratory History: Other Endocrine Medical History: Other Musculoskeletal History: Rheumatoid Arthritis GI Medical History: GERD, Gallbladder Disease History: Other Psycho-Social History: Anxiety, Attention Deficit Disorder, Depression Female Reproductive Disorders: No Pertinent History Other Medical History: HX OF COVID IN JUNE. NOT VACCINATED - PER PATIENT DUE TO RHUEMATOID ARTHRITIS. PMHX FATTY LIVER. PER PATIENT HAS AN "EXTRA HEART BEAT" - Past Surgical History Past Surgical History: Yes Neuro Surgical History: No Pertinent History Cardiac: No Pertinent History Respiratory: No Pertinent History Gastrointestinal: Cholecystectomy Genitourinary: No Pertinent History Musculoskeletal: No Pertinent History Female Surgical History: Section Other Surgical History: - Social History Smoking Status: Never smoker How long have you smoked: 1 YEAR Exposure to second hand smoke: No Drug Use: none Patient Lives Alone: Yes - Female History Hx Now: No - Nursing Vital Signs Nursing Vital Signs: Initial Vital Signs Temperature 98.3 F 04/29/22 22:18 Pulse Rate 80 04/29/22 22:18 Respiratory Rate 18 04/29/22 22:18 Blood Pressure 144/92 04/29/22 22:18 O2 Sat by Pulse Oximetry 96 04/29/22 22:18 Pain Scale Pain Intensity 6 - Physical Exam General Appearance: no apparent distress Eye Exam: PERRL/EOMI Ears, Nose, Throat Exam: moist mucous membranes, pharyngeal erythema Neck Exam: normal inspection, supple, full range of motion Respiratory Exam: normal breath sounds, lungs clear Cardiovascular Exam: regular rate/rhythm, normal heart sounds Back Exam: normal inspection Extremity Exam: normal inspection, normal range of motion Neurologic Exam: alert, oriented x 3, cooperative, 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 She had COVID test done at home and is negative. She does not want to be tested for COVID-19. She is given Zofran. I believe she is having symptoms secondary to doxycycline. Her nausea symptoms could be secondary to doxycycline. Recommended continue with Flonase and outpatient follow-up. Blood Culture(s) Obtained: No Antibiotics given: No Counseled pt/family regarding: diagnosis, need for follow-up - Departure Departure Disposition: Home Clinical Impression: Acute sinusitis Condition: Stable Critical Care Time: No Referrals: JULIO CÉSAR GIRALDO NP [Primary Care Provider] - Follow Up with PCP/3 days Instructions: Sinusitis, Adult (DC) Additional Instructions: Take Tylenol/ibuprofen as needed. Plenty of fluids. Continue with Flonase. Follow-up with primary care for reevaluation. Return to ER for any worsening.
== END 2022-04-29 22:51 | disposition home or self-care (01) ==
LOC: ED 22:12
DX: J01.90 Acute sinusitis, unspecified (principal); R51.9 Headache, unspecified; R09.81 Nasal congestion; R11.2 Nausea with vomiting, unspecified; Z79.899 Other long term (current) drug therapy
CPT/HCPCS: 99281; Q0162

== ENCOUNTER 2022-04-30 13:46 | Emergency (ER) | payer BC, OTHER ==
--- NOTE | 2022-04-30 13:49 | ERPHSYRPT ---
- History of Present Illness Time Seen by Provider: 04/30/22 13:48 Source: patient Exam Limitations: no limitations Physician History: This is a 31-year-old white female who was diagnosed with clinical sinusitis and started on a Z-Bear and doxycycline. Patient's nurse practitioner is nurse practitioner Marco Antonio. Patient has a history of arrhythmia, gastroesophageal refl ux disease, ADD, anxiety issues. Patient was seen in the emergency department here yesterday, 04/29/2022, because of headache and vomiting episode. She was given Zofran and that seemed to help her symptoms in the short run. Since yesterday, patient has the worst headache she has ever had. She denies neck pain. She does not have light sensitivity. She has vomited several times. She has no chest pain. She denies shortness of breath. She denies abdominal pain. She does not have any dysuria or urinary frequency. Timing/Duration: day(s) (Last several days), worse Severity: mild (To moderate) Associated Symptoms: nausea, vomiting, headaches, No shortness of breath, No chest pain, No fever Allergies/Adverse Reactions: nifedipine [From Procardia] Allergy (Mild, Verified 04/30/22 13:55) methylprednisolone [From Medrol] Adverse Reaction (Intermediate, Verified 04/30/22 13:55) Home Medications: Bupropion HCl [Wellbutrin Xl] 300 mg PO DAILY 06/18/21 [History] armodafiniL [Armodafinil] 150 mg PO TID 09/12/21 [History] Omeprazole 40 mg PO DAILY 02/03/22 [History] Doxycycline Hyclate 100 mg [Vibramycin 100 MG] 100 mg PO BID 04/29/22 [History] Azelastine Nasal [Astelin Nasal] 1 spray INTRANASAL DAILY 04/30/22 [History] Hx Tetanus, Diphtheria Vaccination/Date Given: Yes Hx Influenza Vaccination/Date Given: No Hx Pneumococcal Vaccination/Date Given: No Travel Risk - International Travel Have you traveled outside of the country in past 3 weeks: No - Coronavirus Screening Are you exhibiting any of the following symptoms?: Yes Symptoms: Vomiting/Diarrhea, Headaches/Body Aches/Fatigue - Vaccine Status Have you recieved a Covid-19 vaccination: No - Review of Systems Constitutional: No Symptoms Eyes: No Symptoms Ears, Nose, & Throat: No Symptoms Respiratory: No Symptoms Cardiac: No Symptoms Abdominal/Gastrointestinal: Nausea, Vomiting, No Abdominal Pain, No Diarrhea, No Constipation Genitourinary Symptoms: No Symptoms Musculoskeletal: No Symptoms Skin: No Symptoms Neurological: Headache Psychological: No Symptoms Endocrine: No Symptoms Hematologic/Lymphatic: No Symptoms Immunological/Allergic: No Symptoms All Other Systems: Reviewed and Negative - Past Medical History Pertinent Past Medical History: Yes Neurological History: No Pertinent History ENT History: No Pertinent History Cardiac History: Arrhythmia Respiratory History: Other Endocrine Medical History: Other Musculoskeletal History: Rheumatoid Arthritis GI Medical History: GERD, Gallbladder Disease History: Other Psycho-Social History: Anxiety, Attention Deficit Disorder, Depression Female Reproductive Disorders: No Pertinent History Other Medical History: HX OF COVID IN JUNE. NOT VACCINATED - PER PATIENT DUE TO RHUEMATOID ARTHRITIS. PMHX FATTY LIVER. PER PATIENT HAS AN "EXTRA HEART BEAT" - Past Surgical History Past Surgical History: Yes Neuro Surgical History: No Pertinent History Cardiac: No Pertinent History Respiratory: No Pertinent History Gastrointestinal: Cholecystectomy Genitourinary: No Pertinent History Musculoskeletal: No Pertinent History Female Surgical History: Section Other Surgical History: - Social History Smoking Status: Never smoker How long have you smoked: 1 YEAR Exposure to second hand smoke: No Drug Use: none Patient Lives Alone: Yes - Nursing Vital Signs Nursing Vital Signs: Initial Vital Signs Temperature 99 F 04/30/22 13:54 Pulse Rate 66 04/30/22 13:54 Respiratory Rate 19 04/30/22 13:54 Blood Pressure 133/61 04/30/22 13:54 O2 Sat by Pulse Oximetry 98 04/30/22 13:54 Pain Scale Pain Intensity 8 - Physical Exam General Appearance: no apparent distress, alert, anxiety, obese Eye Exam: PERRL/EOMI, eyes nml inspection Ears, Nose, Throat Exam: normal ENT inspection, moist mucous membranes Neck Exam: normal inspection, non-tender, supple, full range of motion Respiratory Exam: normal breath sounds, lungs clear, airway intact, No chest tenderness, No respiratory distress Cardiovascular Exam: regular rate/rhythm, normal heart sounds, normal peripheral pulses Gastrointestinal/Abdomen Exam: soft, normal bowel sounds, No tenderness, No guar ding Pelvic Exam: not done Rectal Exam: not done Back Exam: normal inspection, normal range of motion, No CVA tenderness, No vertebral tenderness Extremity Exam: normal inspection, normal range of motion, pelvis stable Neurologic Exam: alert, oriented x 3, cooperative, 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, normal mood/affect, nml cerebellar function, nml station & gait, sensation nml Skin Exam: normal color, warm, dry Lymphatic Exam: No adenopathy O2 Delivery: Room Air - Course Nursing assessment & vital signs reviewed: Yes Ordered Tests: Active Orders 24 hr Category Date Time Status IV Insertion STAT Care 04/30/22 13:54 Active HEAD WITHOUT CONTRAST [CT] Stat Exams 04/30/22 14:15 Completed AMYLASE Stat Lab 04/30/22 14:10 Completed BLOOD CULTURE Stat Lab 04/30/22 14:17 Received CBC W DIFF Stat Lab 04/30/22 14:10 Completed CMP Stat Lab 04/30/22 14:10 Completed HCG,QUALITATIVE URINE Stat Lab 04/30/22 13:54 Completed LIPASE Stat Lab 04/30/22 14:10 Completed [place] Screen Stat Lab 04/30/22 14:10 Completed UA W/RFX CULTURE Stat Lab 04/30/22 14:50 Completed Medication Summary Discontinued Medications Generic Name Dose Route Start Last Admin Trade Name Silvia PRN Reason Stop Dose Admin Sodium Chloride 1,000 mls @ 999 mls/hr 04/30/22 13:54 04/30/22 15:19 Sodium Chloride 0.9% 1000 Ml IV 04/30/22 14:54 Infused .Q1H1M STA Infusion Sodium Chloride Confirm 04/30/22 14:10 Sodium Chloride 0.9% 1000 Ml Administered 04/30/22 14:11 Dose 1,000 mls @ ud .ROUTE .STK-MED ONE Sodium Chloride Confirm 04/30/22 14:13 Sodium Chloride 0.9% 1000 Ml Administered 04/30/22 14:14 Dose 1,000 mls @ ud .ROUTE .STK-MED ONE Prochlorperazine Edisylate 5 mg 04/30/22 13:54 04/30/22 14:13 Prochlorperazine Edisylate 10 Mg/2 Ml Vial IV 04/30/22 13:55 5 mg STAT ONE Administration Prochlorperazine Edisylate Confirm 04/30/22 14:10 Prochlorperazine Edisylate 10 Mg/2 Ml Vial Administered 04/30/22 14:11 Dose 10 mg .ROUTE .STK-MED ONE Prochlorperazine Edisylate Confirm 04/30/22 14:13 Prochlorperazine Edisylate 10 Mg/2 Ml Vial Administered 04/30/22 14:14 Dose 10 mg .ROUTE .[employer] ONE Lab/Rad Data: Laboratory Result Diagrams 04/30/22 14:10 04/30/22 14:10 Laboratory Results 04/30/22 04/30/22 04/30/22 Range/Units 14:50 14:10 14:10 WBC (4.0-10.5) x10^3/uL RBC (4.1-5.4) x10^6/uL Hgb (12.0-16.0) g/dL Hct (35-47) % MCV (78-100) fL MCH (26-32) pg MCHC (32-36) g/dL RDW (11.5-14.0) % Plt Count (150-450) x10^3/uL MPV (7.5-11.0) fL Gran % (36.0-66.0) % Immature Gran % (Auto) (0.00-0.4) % Nucleat RBC Rel Count (0.00-0.1) % Eos # (Auto) (0-0.5) x10^3/uL Immature Gran # (Auto) (0.00-0.03) x10^3u/L Absolute Lymphs (auto) (1.0-4.6) x10^3/uL Absolute Monos (auto) (0.0-1.3) x10^3/uL Absolute Nucleated RBC (0.00-0.01) x10^3u/L Lymphocytes % (24.0-44.0) % Monocytes % (0.0-12.0) % Eosinophils % (0.00-5.0) % Basophils % (0.0-0.4) % Absolute Granulocytes (1.4-6.9) x10^3/uL Basophils # (0-0.4) x10^3/uL Sodium (137-145) mmol/L Potassium (3.5-5.1) mmol/L Chloride (98-107) mmol/L Carbon Dioxide (22-30) mmol/L Anion Gap (5-15) MEQ/L BUN (7-17) mg/dL Creatinine (0.52-1.04) mg/dL Estimated GFR ML/MIN Glucose (74-106) mg/dL Calcium (8.4-10.2) mg/dL Total Bilirubin (0.2-1.3) mg/dL AST (14-36) U/L ALT (0-35) U/L Alkaline Phosphatase (38-126) U/L Serum Total Protein (6.3-8.2) g/dL Albumin (3.5-5.0) g/dL Amylase (30-110) U/L Lipase (23-300) U/L Urinalys Dipstick Clnc MAIN LAB Urine Color YELLOW (YELLOW) Urine Appearance CLEAR (CLEAR) Urine pH 6.5 (5-6) Ur Specific [place] 1.020 (1.005-1.025) POC Urine Protein Conf NEGATIVE (Negative) Urine Ketones NEGATIVE (NEGATIVE) Urine Nitrite NEGATIVE (NEGATIVE) Urine Bilirubin NEGATIVE (NEGATIVE) Urine Urobilinogen 0.2 (0-1) mg/dL Urine Leukocytes NEGATIVE (NEGATIVE) Urine WBC (Auto) NONE (0-5) /HPF Urine RBC (Auto) 0-2 (0-2) /HPF U Epithel Cells (Auto) RARE (FEW) /HPF Urine Bacteria (Auto) NONE SEEN (NEGATIVE) /HPF Urine RBC MODERATE (0-5) Lalito/ul Urine Mucus (Auto) SLIGHT (NEGATIVE) /HPF Ur Culture Indicated? NO Urine Glucose NEGATIVE (NEGATIVE) mg/dL Urine HCG, Qual (Negative) Monoscreen NEGATIVE (Negative) Influenza Type A Ag NEGATIVE (NEGATIVE) Influenza Type B Ag NEGATIVE (NEGATIVE) RSV (PCR) NEGATIVE (Negative) SARS-CoV-2 (PCR) NEGATIVE (NEGATIVE) 04/30/22 04/30/22 04/30/22 Range/Units 14:10 14:10 13:54 WBC 12.8 H (4.0-10.5) x10^3/uL RBC 4.65 (4.1-5.4) x10^6/uL Hgb 13.9 (12.0-16.0) g/dL Hct 42.7 (35-47) % MCV 91.8 (78-100) fL MCH 29.9 (26-32) pg MCHC 32.6 (32-36) g/dL RDW 13.5 (11.5-14.0) % Plt Count 351 (150-450) x10^3/uL MPV 10.9 (7.5-11.0) fL Gran % 67.6 H (36.0-66.0) % Immature Gran % (Auto) 0.5 H (0.00-0.4) % Nucleat RBC Rel Count 0.0 (0.00-0.1) % Eos # (Auto) 0.13 (0-0.5) x10^3/uL Immature Gran # (Auto) 0.07 H (0.00-0.03) x10^3u/L Absolute Lymphs (auto) 3.29 (1.0-4.6) x10^3/uL Absolute Monos (auto) 0.62 (0.0-1.3) x10^3/uL Absolute Nucleated RBC 0.00 (0.00-0.01) x10^3u/L Lymphocytes % 25.8 (24.0-44.0) % Monocytes % 4.9 (0.0-12.0) % Eosinophils % 1.0 (0.00-5.0) % Basophils % 0.2 (0.0-0.4) % Absolute Granulocytes 8.63 H (1.4-6.9) x10^3/uL Basophils # 0.03 (0-0.4) x10^3/uL Sodium 139 (137-145) mmol/L Potassium 3.9 (3.5-5.1) mmol/L Chloride 105 (98-107) mmol/L Carbon Dioxide 26 (22-30) mmol/L Anion Gap 12.6 (5-15) MEQ/L BUN 9 (7-17) mg/dL Creatinine 0.70 (0.52-1.04) mg/dL Estimated GFR > 60.0 ML/MIN Glucose 99 (74-106) mg/dL Calcium 9.4 (8.4-10.2) mg/dL Total Bilirubin 0.40 (0.2-1.3) mg/dL AST 27 (14-36) U/L ALT 41 H (0-35) U/L Alkaline Phosphatase 83 (38-126) U/L Serum Total Protein 7.4 (6.3-8.2) g/dL Albumin 4.4 (3.5-5.0) g/dL Amylase 66 (30-110) U/L Lipase 46 (23-300) U/L Urinalys Dipstick Clnc Urine Color (YELLOW) Urine Appearance (CLEAR) Urine pH (5-6) Ur Specific [place] (1.005-1.025) POC Urine Protein Conf (Negative) Urine Ketones (NEGATIVE) Urine Nitrite (NEGATIVE) Urine Bilirubin (NEGATIVE) Urine Urobilinogen (0-1) mg/dL Urine Leukocytes (NEGATIVE) Urine WBC (Auto) (0-5) /HPF Urine RBC (Auto) (0-2) /HPF U Epithel Cells (Auto) (FEW) /HPF Urine Bacteria (Auto) (NEGATIVE) /HPF Urine RBC (0-5) Lalito/ul Urine Mucus (Auto) (NEGATIVE) /HPF Ur Culture Indicated? Urine Glucose (NEGATIVE) mg/dL Urine HCG, Qual NEGATIVE (Negative) Monoscreen (Negative) Influenza Type A Ag (NEGATIVE) Influenza Type B Ag (NEGATIVE) RSV (PCR) (Negative) SARS-CoV-2 (PCR) (NEGATIVE) - Progress Progress: improved, re-examined Progress Note: 04/30/22 14:59 CT scan of the head without contrast shows a normal CAT scan of the head. Visualized sinuses are clear. Counseled pt/family regarding: lab results, diagnosis, need for follow-up, rad results - Departure Departure Disposition: Home Clinical Impression: Headache, Vomiting Condition: Stable Critical Care Time: No Referrals: JULIO CÉSAR GIRALDO REGULATORY PROCESS MANAGER [Primary Care Provider] - Follow up/PCP as directed Additional Instructions: Drink plenty of clear liquids before advancing diet. Use Tylenol and ibuprofen for pain control. Stop all your antibiotics. Follow-up with your primary care provider for further evaluation and management Prescriptions: Ondansetron ODT 4 MG [Zofran Odt 4 mg] 4 mg PO Q6H PRN PRN #10 tablet PRN Reason: Vomiting
[2022-04-30] MEDS ORDERED: Sodium Chloride 0.9% 1000 ML 1,000 ML IV STA (13:54)
[2022-04-30] MEDS ORDERED: Compazine 10 MG/2 ML IV ONE (13:54)
[2022-04-30] MEDS ORDERED: Compazine 10 MG/2 ML ONE ×2 (14:10→14:13)
[2022-04-30] MEDS ORDERED: Sodium Chloride 0.9% 1000 ML 0 ML ONE (14:10)
[2022-04-30] MEDS ORDERED: Sodium Chloride 0.9% 1000 ML 1,000 ML ONE (14:13)
[2022-04-30 14:26] LABS: Absolute Neutrophil Ct (ANC) 8.63 x10^3/uL (1.4-6.9); Basophil (Absolute #) 0.03 x10^3/uL (0-0.4); Eosinophil (Absolute #) 0.13 x10^3/uL (0-0.5); Hematocrit 42.7 % (35-47); Hemoglobin 13.9 g/dL (12.0-16.0); Lymphocyte (Absolute #) 3.29 x10^3/uL (1.0-4.6); Lymphocytes % 25.8 % (24.0-44.0); Mean Cell Volume 91.8 fL (78-100); Mean Corpuscular Hemoglobin 29.9 pg (26-32); Mean Corpuscular Hgb Concent. 32.6 g/dL (32-36); Mean Platelet Volume 10.9 fL (7.5-11.0); Monocyte (Absolute #) 0.62 x10^3/uL (0.0-1.3); Monocytes % 4.9 % (0.0-12.0); Neutrophil % 67.6 % (36.0-66.0); Platelet Count 351 x10^3/uL (150-450); Red Blood Count 4.65 x10^6/uL (4.1-5.4); Red Cell Distribution Width 13.5 % (11.5-14.0); White Blood Count 12.8 x10^3/uL (4.0-10.5)
--- NOTE | 2022-04-30 14:37 | XRAY ---
Indication: Headache. Multiple contiguous axial images obtained through the head without contrast. Comparison: December 15, 2021 Normal appearing brain parenchyma, ventricles, and bony calvarium. Visualized paranasal sinuses and mastoid air cells are clear. Impression: Continued normal CT head without contrast exam.
[2022-04-30 14:43] LABS: ALBUMIN 4.4 g/dL (3.5-5.0); ALKALINE PHOSPHATASE 83 U/L (38-126); AMYLASE 66 U/L (30-110); ANION GAP 12.6 MEQ/L (5-15); BLOOD UREA NITROGEN 9 mg/dL (7-17); CHLORIDE 105 mmol/L (98-107); Calcium 9.4 mg/dL (8.4-10.2); Carbon Dioxide 26 mmol/L (22-30); EST GLOMERULAR FILTRATION RATE > 60.0 ML/MIN; Glucose 99 mg/dL (74-106); LIPASE 46 U/L (23-300); Potassium 3.9 mmol/L (3.5-5.1); SGOT/AST 27 U/L (14-36); SGPT/ALT 41 U/L (0-35); SODIUM 139 mmol/L (137-145); Total Protein 7.4 g/dL (6.3-8.2)
[2022-04-30 15:01] LABS: INFLUENZA A NEGATIVE (NEGATIVE); INFLUENZA B NEGATIVE (NEGATIVE); RESPIRATORY SYNCTIAL VIRUS NEGATIVE (Negative); SARS-CoV-2 Xpert Express NEGATIVE (NEGATIVE)
[2022-04-30 15:33] LABS: Appearance CLEAR (CLEAR); Bilirubin NEGATIVE (NEGATIVE); Dipstick done @ ? MAIN LAB; Glucose NEGATIVE (NEGATIVE); Ketones NEGATIVE (NEGATIVE); Nitrite NEGATIVE (NEGATIVE); Ph 6.5 (5-6); Protein,Urine Dip NEGATIVE (Negative); RBC MODERATE Ery/ul (0-5); Urobilinogen 0.2 mg/dL (0-1)
[2022-04-30 15:36] LABS: Epithelial Cells RARE /HPF (FEW); Mucus SLIGHT /HPF (NEGATIVE); RBC 0-2 /HPF (0-2)
[2022-04-30 15:45] LABS: Bacteria NONE SEEN /HPF (NEGATIVE); Urine Cultured Indicated? NO
[2022-04-30 15:53] VITALS: BP 130/75; PULSE 64; O2SAT 99
== END 2022-04-30 15:58 | disposition home or self-care (01) ==
LOC: ED 13:46
DX: R51.9 Headache, unspecified (principal); R11.2 Nausea with vomiting, unspecified; Z79.899 Other long term (current) drug therapy; Z86.16 Personal history of COVID-19
CPT/HCPCS: 0241U; 36000; 36415; 70450; 80053; 81015; 81025; 82150; 83690; 85025; 86308; 87040; 96374; 99284

== ENCOUNTER 2022-07-12 17:42 | Emergency (ER) | payer BC, OTHER ==
[2022-07-12 18:55] VITALS: BP 132/82; PULSE 78; O2SAT 97
[2022-07-12] MEDS ORDERED: Augmentin 875-125 Tablet PO ONE (18:56)
[2022-07-12] MEDS ORDERED: Augmentin 875-125 Tablet ONE (19:06)
--- NOTE | 2022-07-12 19:33 | ERPHSYRPT ---
- History of Present Illness Time Seen by Provider: 07/12/22 18:28 Source: patient Exam Limitations: no limitations Patient Subjective Stated Complaint: C/O right earache, headache, cough congestion for the past 3 days. Denies fever. Triage Nursing Assessment: Patient ambulated back to ED. She is alert and oriented. No SOB. Hearing normal. No drainage noted from right ear. Throat is red. Dry, non-productive cough. Physician History: 32 years old female presented in the ER with chief complaint of URI symptoms for almost a week, was evaluated outpatient and was given Medrol Dosepak with improvement in some but now for the last couple of days having increasing pain and decreased hearing in the right ear without any discharge. No fever or chills reported. No difficulty swallowing but still have sore throat. Timing/Duration: gradual onset, days (3) Severity: moderate ENT Location: ear (R), throat Prearrival Treatment: over the counter meds, prescription meds Associated Symptoms: ear pain (R), headache, hearing loss, nasal congestion/drainage, swollen glands, sore throat, No cough, No fever Allergies/Adverse Reactions: nifedipine [From Procardia] Allergy (Mild, Verified 07/12/22 18:41) methylprednisolone [From Medrol] Adverse Reaction (Intermediate, Verified 07/12/22 18:41) Home Medications: Bupropion HCl [Wellbutrin Xl] 300 mg PO DAILY 06/18/21 [History] armodafiniL [Armodafinil] 150 mg PO TID 09/12/21 [History] Omeprazole 40 mg PO DAILY 02/03/22 [History] Doxycycline Hyclate 100 mg [Vibramycin 100 MG] 100 mg PO BID 04/29/22 [History] Azelastine Nasal [Astelin Nasal] 1 spray INTRANASAL DAILY 04/30/22 [History] Hx Tetanus, Diphtheria Vaccination/Date Given: Yes Hx Influenza Vaccination/Date Given: No Hx Pneumococcal Vaccination/Date Given: No Immunizations Up to Date: Yes Travel Risk - International Travel Have you traveled outside of the country in past 3 weeks: No - Coronavirus Screening Are you exhibiting any of the following symptoms?: Yes Symptoms: Cough: New Onset, Headaches/Body Aches/Fatigue Close contact with a COVID-19 positive Pt in past 14-21 Days: No - Vaccine Status Have you recieved a Covid-19 vaccination: No - Review of Systems Constitutional: No Symptoms Eyes: No Symptoms Ears, Nose, & Throat: Ear Pain, Hearing Changes, Nose Congestion, Sinus Drainage, Throat Swelling Respiratory: No Symptoms Cardiac: No Symptoms Abdominal/Gastrointestinal: No Symptoms Genitourinary Symptoms: No Symptoms Musculoskeletal: No Symptoms Neurological: No Symptoms Psychological: No Symptoms Hematologic/Lymphatic: No Symptoms Immunological/Allergic: No Symptoms - Past Medical History Pertinent Past Medical History: Yes Neurological History: No Pertinent History ENT History: No Pertinent History Cardiac History: Arrhythmia Respiratory History: Other Endocrine Medical History: Other Musculoskeletal History: Rheumatoid Arthritis GI Medical History: GERD, Gallbladder Disease History: Other Psycho-Social History: Anxiety, Attention Deficit Disorder, Depression Female Reproductive Disorders: No Pertinent History Other Medical History: HX OF COVID IN JUNE, FATTY LIVER, PER PATIENT HAS AN "EXTRA HEART BEAT" - Past Surgical History Past Surgical History: Yes Neuro Surgical History: No Pertinent History Cardiac: No Pertinent History Respiratory: No Pertinent History Gastrointestinal: Cholecystectomy Genitourinary: No Pertinent History Musculoskeletal: No Pertinent History Female Surgical History: Section Other Surgical History: - Social History Smoking Status: Never smoker How long have you smoked: 1 YEAR Exposure to second hand smoke: No Drug Use: none Patient Lives Alone: Yes - Female History Hx Now: No - Nursing Vital Signs Nursing Vital Signs: Initial Vital Signs Temperature 98 F 07/12/22 18:42 Pulse Rate 78 07/12/22 18:42 Respiratory Rate 18 07/12/22 18:42 Blood Pressure 132/82 07/12/22 18:42 O2 Sat by Pulse Oximetry 97 07/12/22 18:42 Pain Scale Pain Intensity 10 - Physical Exam General Appearance: no apparent distress, alert Eye Exam: bilateral eye: normal inspection, PERRL, EOMI Ear Exam: right ear: TM red, bilateral ear: auricle normal, canal normal Nasal Exam: normal inspection Throat Exam: normal, moist mucus membranes, No pharynx tenderness Neck Exam: normal inspection, non-tender, supple, full range of motion Cardiovascular/Respiratory Exam: normal breath sounds, regular rate/rhythm Neurologic Exam: alert, oriented x 3, 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 Skin Exam: normal color SpO2 Interpretation: normal SpO2: 97 O2 Delivery: Room Air Ordered Tests: Medication Summary Discontinued Medications Generic Name Dose Route Start Last Admin Trade Name Silvia PRN Reason Stop Dose Admin Amoxicillin/Clavulanate Potassium 875 mg 07/12/22 18:56 07/12/22 19:07 Amox Tr/Potassium Clavulanate 875 Mg Tablet PO 07/12/22 18:57 875 mg STAT ONE Administration Amoxicillin/Clavulanate Potassium Confirm 07/12/22 19:06 Amox Tr/Potassium Clavulanate 875 Mg Tablet Administered 07/12/22 19:07 Dose 875 mg .ROUTE .STK-MED ONE - Progress Progress: unchanged Progress Note: 07/12/22 19:31 32 years old is evaluated for URI symptoms for over a week and was evaluated outpatient and finished Medrol Dosepak and now having pain and decreased hearing in the right ear. Seems like she has fluid behind the ear and some redness of TM. Started on Augmentin, outpatient follow-up recommended. Tylenol/ibuprofen as needed. Counseled pt/family regarding: diagnosis, need for follow-up - Departure Departure Disposition: Home Clinical Impression: Otitis media Condition: Stable Critical Care Time: No Referrals: JULIO CÉSAR GIRALDO NP [Primary Care Provider] - Follow Up with PCP/3 days Instructions: Serous Otitis Media (DC) Additional Instructions: Take Tylenol/ibuprofen as needed for pain. Follow-up with primary care for reevaluation. Return to ER for worsening pain, decreased hearing, ear discharge, fever chills etc. Prescriptions: Amox Tr/Potass Clav. 875 mg [Augmentin 875-125 Tablet] 875 mg PO BID #20 tablet
[2022-07-12 19:42] LABS: INFLUENZA A NEGATIVE (NEGATIVE); INFLUENZA B NEGATIVE (NEGATIVE); RESPIRATORY SYNCTIAL VIRUS NEGATIVE (Negative); SARS-CoV-2 Xpert Express NEGATIVE (NEGATIVE)
== END 2022-07-12 19:56 | disposition home or self-care (01) ==
LOC: ED 17:42
DX: H66.91 Otitis media, unspecified, right ear (principal); H92.01 Otalgia, right ear; J02.9 Acute pharyngitis, unspecified; Z79.899 Other long term (current) drug therapy; Z28.310 Unvaccinated for COVID-19; Z86.16 Personal history of COVID-19
CPT/HCPCS: 0241U; 87651; 99282; A9270-GY

== ENCOUNTER 2022-09-02 03:29 | Emergency (ER) | payer BC, OTHER ==
[2022-09-02 04:10] LABS: Group A Strep NOT DETECTED (NEGATIVE)
[2022-09-02 04:21] LABS: INFLUENZA A NEGATIVE (NEGATIVE); INFLUENZA B NEGATIVE (NEGATIVE); RESPIRATORY SYNCTIAL VIRUS NEGATIVE (Negative)
[2022-09-02 04:24] LABS: SARS-CoV-2 Xpert Express POSITIVE (NEGATIVE)
[2022-09-02 05:00] VITALS: O2SAT 96
[2022-09-02 05:15] VITALS: BP 122/80; PULSE 98
--- NOTE | 2022-09-02 05:20 | ERPHSYRPT ---
- History of Present Illness Time Seen by Provider: 09/02/22 03:45 Source: patient Exam Limitations: no limitations Patient Subjective Stated Complaint: pt states I woke up yesterday with a 105 fever. I went to [facility] and was told I had fluid on my ear. They gave me an tibiotics. I woke at 2 this morning with a fever of 102.6. I took tylenol and it wouldn't go down. Triage Nursing Assessment: pt ambulated into the er; pt transfered self to cot; pt is axo x3; c/o fever; no respiratory distress present; skin warm, diaphoretic, pink; dry hacking cough present; rhinitis present; vitals wnl Physician History: This is an overweight 32-year-old white female who has had approximately 2-day history of runny nose, cough and earache. She was seen at [facility] and given a prescription for doxycycline which she started yesterday. However she continues to have fevers and had used Tylenol prior to arrival to the emergency department. She is afebrile here in the emergency department today. She has no chest pain. She is not having abdominal pain. She has no vomiting or diarrhea. Timing/Duration: yesterday Cough Quality/Degree: mild, dry cough (Nonproductive) Possible Cause: occasional episodes Modifying Factors: Improves With: coughing Associated Symptoms: fever, cough, muscle aches, nasal drainage, sore throat, No chest pain/soreness Allergies/Adverse Reactions: nifedipine [From Procardia] Allergy (Mild, Verified 09/02/22 03:35) methylprednisolone [From Medrol] Adverse Reaction (Intermediate, Verified 09/02/22 03:35) Home Medications: buPROPion HCL [Wellbutrin Xl] 300 mg PO DAILY 06/18/21 [History] Omeprazole 40 mg PO DAILY 02/03/22 [History] Azelastine Nasal [Astelin Nasal] 1 spray INTRANASAL DAILY 04/30/22 [History] Albuterol Sulfate [Albuterol Sulfate Hfa] 18 gm IH Q4HPRN PRN 09/02/22 [History] Albuterol/Ipratropium 3ml Neb* [DUONEB 0.5-3 MG/3 ml Neb] 3 ml IH Q4HPRN PRN 09/02/22 [History] Doxycycline Hyclate 100 mg [Vibramycin 100 MG] 100 mg PO BID 09/02/22 [History] Famotidine [Pepcid] 40 mg PO DAILY 09/02/22 [History] Fexofenadine HCl [Niru Allergy] 180 mg PO DAILY 09/02/22 [History] Fluticasone Propion/Salmeterol [Fluticasone-Salmeterol 250-50] 2 puffs IH BID 09/02/22 [History] Hydroxychloroquine Sulfate 200 mg PO DAILY 09/02/22 [History] Montelukast Sodium 10 mg [Singulair 10 MG] 10 mg PO DAILY 09/02/22 [History] modafiniL [Modafinil] 200 mg PO DAILY 09/02/22 [History] Hx Tetanus, Diphtheria Vaccination/Date Given: Yes Hx Influenza Vaccination/Date Given: No Hx Pneumococcal Vaccination/Date Given: No Immunizations Up to Date: Yes Travel Risk - International Travel Have you traveled outside of the country in past 3 weeks: No - Coronavirus Screening Are you exhibiting any of the following symptoms?: Yes Symptoms: Fever, Cough: New Onset Close contact with a COVID-19 positive Pt in past 14-21 Days: No - Vaccine Status Have you recieved a Covid-19 vaccination: No - Review of Systems Constitutional: Fever Eyes: No Symptoms Ears, Nose, & Throat: Nose Discharge, Throat Pain Respiratory: Cough Cardiac: No Symptoms Abdominal/Gastrointestinal: No Symptoms Genitourinary Symptoms: No Symptoms Musculoskeletal: Arthralgias, Myalgias Skin: No Symptoms Neurological: No Symptoms Psychological: No Symptoms Endocrine: No Symptoms Hematologic/Lymphatic: No Symptoms Immunological/Allergic: No Symptoms All Other Systems: Reviewed and Negative - Past Medical History Pertinent Past Medical History: Yes Neurological History: No Pertinent History ENT History: No Pertinent History Cardiac History: Arrhythmia Respiratory History: Other Endocrine Medical History: Other Musculoskeletal History: Rheumatoid Arthritis GI Medical History: GERD, Gallbladder Disease History: Other Psycho-Social History: Anxiety, Attention Deficit Disorder, Depression Female Reproductive Disorders: No Pertinent History Other Medical History: HX OF COVID IN JUNE, FATTY LIVER, PER PATIENT HAS AN "EXTRA HEART BEAT" - Past Surgical History Past Surgical History: Yes Neuro Surgical History: No Pertinent History Cardiac: No Pertinent History Respiratory: No Pertinent History Gastrointestinal: Cholecystectomy Genitourinary: No Pertinent History Musculoskeletal: No Pertinent History Female Surgical History: Section Other Surgical History: - Social History Smoking Status: Former smoker How long have you smoked: 1 YEAR Exposure to second hand smoke: No Drug Use: none Patient Lives Alone: Yes - Female History Hx Now: No - Nursing Vital Signs Nursing Vital Signs: Initial Vital Signs Temperature 98.3 F 09/02/22 03:30 Pulse Rate 97 H 09/02/22 03:30 Respiratory Rate 18 09/02/22 03:30 Blood Pressure 99/55 09/02/22 03:30 O2 Sat by Pulse Oximetry 97 09/02/22 03:30 Pain Scale Pain Intensity 2 - Physical Exam General Appearance: no apparent distress, alert, anxiety, obese Eye Exam: PERRL/EOMI, eyes nml inspection Ears, Nose, Throat Exam: moist mucous membranes, TM abnormal (R) (Mild redness), TM abnormal (L), pharyngeal erythema Neck Exam: normal inspection (Mild redness), non-tender, supple, full range of motion Respiratory Exam: normal breath sounds, lungs clear, No chest tenderness, No respiratory distress Cardiovascular Exam: regular rate/rhythm, normal heart sounds, normal peripheral pulses Gastrointestinal/Abdomen Exam: soft, normal bowel sounds, No tenderness Pelvic Exam: not done Rectal Exam: not done Back Exam: normal inspection, normal range of motion, No CVA tenderness, No vertebral tenderness Extremity Exam: normal inspection, normal range of motion, pelvis stable Neurologic Exam: alert, oriented x 3, cooperative, securities teller II-XII nml as tested, normal mood/affect, nml cerebellar function, nml station & gait, sensation nml Skin Exam: normal color, warm, dry Lymphatic Exam: No adenopathy SpO2 Interpretation: normal SpO2: 96 O2 Delivery: Room Air - Course Nursing assessment & vital signs reviewed: Yes Ordered Tests: Active Orders 24 hr Category Date Time Status CHEST 1 VIEW (PORTABLE) Stat Exams 09/02/22 04:26 Taken Lab/Rad Data: Laboratory Results 09/02/22 Range/Units 03:43 Influenza Type A Ag NEGATIVE (NEGATIVE) Influenza Type B Ag NEGATIVE (NEGATIVE) RSV (PCR) NEGATIVE (Negative) SARS-CoV-2 (PCR) POSITIVE A (NEGATIVE) Group A Strep Antibody NOT DETECTED (NEGATIVE) - Progress Progress: improved Air Movement: good Progress Note: 09/02/22 05:17 Chest x-ray was read by radiology and I reviewed the teleradiology report. There is bibasilar atelectasis versus foci of infiltrate. Infection cannot be completely ruled out. 09/02/22 05:18 This patient's medical issue is 1 of low complexity. The work-up included viral swabs and a chest x-ray. This is based on the patient's complaint, history of present illness and physical findings. The results were reviewed. Patient is already on doxycycline. She is allergic to methylprednisolone. We will provide her with an NSAID and hydrocodone elixir as a cough suppressant she will need to quarantine yourself for 7 days. Blood Culture(s) Obtained: No Antibiotics given: No Counseled pt/family regarding: lab results, diagnosis, need for follow-up, rad results Medical Desision Making - Discussion of managment Reviewed:: Test results Agreed on:: Treatment plan, need for follow-up - Diagnostic Testing Diagnostic test were ordered, analyzed, and reviewed by me: Yes Radiological Interpretation: Reviewed by me, Teleradiologist Report - Risk of complications Minimal Risk: Minimal risk of morbidity - Departure Departure Disposition: Home Clinical Impression: COVID-19 virus infection Condition: Stable Critical Care Time: No Referrals: JULIO CÉSAR GIRALDO, [facility]ALL[facility]ER [Primary Care Provider] - Follow up/PCP as directed Additional Instructions: Drink plenty of fluids. Take your medication as prescribed. Continue your doxycycline. Add ibuprofen 600 mg orally 3 times a day with food for the next 5 days to help control aches, pains and fever. Quarantine yourself for 7 days and contact your school or work let them know that you are COVID 19 positive. Prescriptions: Hydrocodone/Acetaminophen [Hydrocodone-Acetamn 7.5-325/15] 10 ml PO Q8H PRN PRN #120 ml MDD 30 ml PRN Reason: Cough
[2022-09-02] MEDS ORDERED: MOTRIN 600 MG PO ONE (05:23)
[2022-09-02] MEDS ORDERED: HYDROCODONE-ACETAMIN 2.5-108/5 ML SOLUTION PO STA (05:23)
[2022-09-02] MEDS ORDERED: HYDROCODONE-ACETAMIN 2.5-108/5 ML SOLUTION ONE (05:29)
[2022-09-02] MEDS ORDERED: MOTRIN 600 MG ONE (05:29)
--- NOTE | 2022-09-02 08:07 | XRAY ---
Indication: Cough. Positive Covid 19. Comparison: None Portable chest again demonstrates normal heart, lungs, and bony thorax. Comment: Preliminary interpretation made by [facility]. No critical discrepancy.
== END 2022-09-02 05:45 | disposition home or self-care (01) ==
LOC: ED 03:29
DX: U07.1 COVID-19 (principal); R50.9 Fever, unspecified; R05.1 Acute cough; Z79.891 Long term (current) use of opiate analgesic; Z79.899 Other long term (current) drug therapy; Z28.310 Unvaccinated for COVID-19
CPT/HCPCS: 0241U; 71045; 87651; 99283; A9270-GY

== ENCOUNTER 2023-01-12 08:36 | Emergency (ER) | payer BC, OTHER ==
[2023-01-12] MEDS ORDERED: Nitrostat 0.4 MG (ED) SL ONE ×2 (08:44→08:57)
[2023-01-12] MEDS ORDERED: Sodium Chloride 0.9% 1000 ML 1,000 ML IV SCH (08:45)
[2023-01-12] MEDS ORDERED: Sodium Chloride 0.9% 1000 ML 1,000 ML ONE (08:57)
--- NOTE | 2023-01-12 09:10 | ERPHSYRPT ---
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 She rates the pain 10 of 10 substernal in location and some nausea but no real vomiting shortness of breath or diaphoresis. She has no cardiac history other than some palpitations and irregular heartbeat. Her pain started 45 minutes prior to her arrival. Timing/Duration: today Activities at Onset: none Quality: pressure, stabbing Location: substernal Chest Pain Radiation: no radiation Severity of Pain-Max: severe Severity of Pain-Current: severe Associated Symptoms: nausea Nitro Today/Relief: no nitro taken today Aspirin Treatment Today: 325 mg x 1 Allergies/Adverse Reactions: nifedipine [From Procardia] Allergy (Mild, Verified 01/12/23 08:38) Home Medications: buPROPion HCL [Wellbutrin Xl] 300 mg PO DAILY 06/18/21 [History] Omeprazole 40 mg PO DAILY 02/03/22 [History] Azelastine Nasal [Astelin Nasal] 1 spray INTRANASAL DAILY 04/30/22 [History] Albuterol Sulfate [Albuterol Sulfate Hfa] 18 gm IH Q4HPRN PRN 09/02/22 [History] Albuterol/Ipratropium 3ml Neb* [DUONEB 0.5-3 MG/3 ml Neb] 3 ml IH Q4HPRN PRN 09/02/22 [History] Famotidine [Pepcid] 40 mg PO DAILY 09/02/22 [History] Fexofenadine HCl [Niru Allergy] 180 mg PO DAILY 09/02/22 [History] Fluticasone Propion/Salmeterol [Fluticasone-Salmeterol 250-50] 2 puffs IH BID 09/02/22 [History] Hydroxychloroquine Sulfate 200 mg PO DAILY 09/02/22 [History] Montelukast Sodium 10 mg [Singulair 10 MG] 10 mg PO DAILY 09/02/22 [History] modafiniL [Modafinil] 200 mg PO DAILY 09/02/22 [History] Amoxicillin 500 mg PO BID 01/12/23 [History] Methylprednisolone Packet [Medrol Dosepack] 4 mg PO UD 01/12/23 [History] Hx Tetanus, Diphtheria Vaccination/Date Given: Yes Hx Influenza Vaccination/Date Given: No Hx Pneumococcal Vaccination/Date Given: No Immunizations Up to Date: Yes Travel Risk - International Travel Have you traveled outside of the country in past 3 weeks: No - Coronavirus Screening Are you exhibiting any of the following symptoms?: No Close contact with a COVID-19 positive Pt in past 14-21 Days: No - Vaccine Status Have you recieved a Covid-19 vaccination: No - Review of Systems Constitutional: No Fever, No Chills Eyes: No Symptoms Ears, Nose, & Throat: No Symptoms Respiratory: No Cough, No Dyspnea Cardiac: No Chest Pain, No Edema, No Syncope Abdominal/Gastrointestinal: No Abdominal Pain, No Nausea, No Vomiting, No Diarrhea Genitourinary Symptoms: No Dysuria Musculoskeletal: No Back Pain, No Neck Pain Skin: No Rash Neurological: No Dizziness, No Focal Weakness, No Sensory Changes Psychological: No Symptoms Endocrine: No Symptoms All Other Systems: Reviewed and Negative - Past Medical History Pertinent Past Medical History: Yes Neurological History: No Pertinent History ENT History: No Pertinent History Cardiac History: Arrhythmia Respiratory History: Other Endocrine Medical History: Other Musculoskeletal History: Rheumatoid Arthritis GI Medical History: GERD, Gallbladder Disease History: Other Psycho-Social History: Anxiety, Attention Deficit Disorder, Depression Female Reproductive Disorders: No Pertinent History Other Medical History: HX OF COVID IN JUNE, FATTY LIVER, PER PATIENT HAS AN "EXTRA HEART BEAT" - Past Surgical History Past Surgical History: Yes Neuro Surgical History: No Pertinent History Cardiac: No Pertinent History Respiratory: No Pertinent History Gastrointestinal: Cholecystectomy Genitourinary: No Pertinent History Musculoskeletal: No Pertinent History Female Surgical History: Section Other Surgical History: - Social History Smoking Status: Former smoker How long have you smoked: 1 YEAR Exposure to second hand smoke: No Drug Use: none Patient Lives Alone: Yes - Female History Hx Last Menstrual Period: none due to control Hx Now: No - Nursing Vital Signs Nursing Vital Signs: Initial Vital Signs Temperature 96.8 F 01/12/23 08:45 Pulse Rate 99 H 01/12/23 08:45 Respiratory Rate 16 01/12/23 08:45 Blood Pressure 154/102 01/12/23 08:45 O2 Sat by Pulse Oximetry 98 01/12/23 08:45 Pain Scale Pain Intensity 0 - Physical Exam General Appearance: no apparent distress, alert Eye Exam: PERRL/EOMI, eyes nml inspection Ears, Nose, Throat Exam: normal ENT inspection, moist mucous membranes Neck Exam: normal inspection, non-tender, supple, full range of motion Respiratory Exam: normal breath sounds, lungs clear, No respiratory distress Cardiovascular Exam: regular rate/rhythm, normal heart sounds Gastrointestinal/Abdomen Exam: soft, No tenderness, No mass Back Exam: normal inspection, No CVA tenderness, No vertebral tenderness Extremity Exam: normal inspection, normal range of motion Neurologic Exam: alert, oriented x 3, cooperative, normal mood/affect, sensation nml, No motor deficits Skin Exam: normal color, warm, dry SpO2: 97 - Course Nursing assessment & vital signs reviewed: Yes EKG Interpreted by Me: RATE ([id number]), Sinus Rhythm, NORMAL AXIS, NORMAL INTERVALS, NORMAL QRS, NORMAL ST-T - Radiology Exams Chest X-ray Interpretation: Interpreted by me, Negative Ordered Tests: Active Orders 24 hr Category Date Time Status EKG-ER Only STAT Care 01/12/23 08:44 Active IV Insertion STAT Care 01/12/23 08:44 Active CHEST 1 VIEW (PORTABLE) Stat Exams 01/12/23 08:45 Taken AMYLASE Stat Lab 01/12/23 09:00 Completed CBC W DIFF Stat Lab 01/12/23 09:00 Completed CMP Stat Lab 01/12/23 09:00 Completed D-DIMER QUANTITATIVE Stat Lab 01/12/23 09:00 Completed Erythrocyte Sedimentation Rate Stat Lab 01/12/23 09:00 Completed LIPASE Stat Lab 01/12/23 09:00 Completed Lactic Acid Stat Lab 01/12/23 09:00 Completed MAGNESIUM Stat Lab 01/12/23 09:00 Completed NT PRO BNPII Stat Lab 01/12/23 09:00 Completed PROTIME WITH INR Stat Lab 01/12/23 09:00 Completed PTT Stat Lab 01/12/23 09:00 Completed TROPONIN Q4H Lab 01/12/23 09:00 Completed TROPONIN Q4H Lab 01/12/23 11:40 Completed TROPONIN Q4H Lab 01/12/23 16:45 Ordered UA W/RFX UR CULTURE Stat Lab 01/12/23 09:56 Completed Urine Triage Profile Stat Lab 01/12/23 09:56 Completed Medication Summary Generic Name Dose Route Start Last Admin Trade Name Freq PRN Reason Stop Dose Admin Sodium Chloride 1,000 mls @ 100 mls/hr 01/12/23 08:45 01/12/23 09:00 Sodium Chloride 0.9% 1000 Ml IV 02/11/23 08:44 100 mls/hr .Q10H MERA Administration Discontinued Medications Generic Name Dose Route Start Last Admin Trade Name Freq PRN Reason Stop Dose Admin Hydromorphone HCl 1 mg 01/12/23 10:24 01/12/23 10:28 Hydromorphone 1 Mg/1ml Inj IV 01/12/23 10:25 1 mg STAT ONE Administration Hydromorphone HCl Confirm 01/12/23 10:27 Hydromorphone 1 Mg/1ml Inj Administered 01/12/23 10:28 Dose 1 mg .ROUTE .STK-MED ONE Nitroglycerin 0.4 mg 01/12/23 08:44 01/12/23 08:59 Nitroglycerin 0.4 Mg (Ed) 0.4 Mg Tab.Subl SL 01/12/23 08:45 0.4 mg STAT ONE Administration Nitroglycerin Confirm 01/12/23 08:57 Nitroglycerin 0.4 Mg (Ed) 0.4 Mg Tab.Subl Administered 01/12/23 08:58 Dose 0.4 mg SL .STK-MED ONE Lab/Rad Data: Laboratory Result Diagrams 01/12/23 09:00 01/12/23 09:00 Laboratory Results 01/12/23 01/12/23 01/12/23 Range/Units 11:40 09:56 09:56 WBC (4.0-10.5) x10^3/uL RBC (4.1-5.4) x10^6/uL Hgb (12.0-16.0) g/dL Hct (35-47) % MCV (78-100) fL MCH (26-32) pg MCHC (32-36) g/dL RDW (11.5-14.0) % Plt Count (150-450) x10^3/uL MPV (7.5-11.0) fL Gran % (36.0-66.0) % Immature Gran % (Auto) (0.00-0.4) % Nucleat RBC Rel Count (0.00-0.1) % Eos # (Auto) (0-0.5) x10^3/uL Immature Gran # (Auto) (0.00-0.03) x10^3u/L Absolute Lymphs (auto) (1.0-4.6) x10^3/uL Absolute Monos (auto) (0.0-1.3) x10^3/uL Absolute Nucleated RBC (0.00-0.01) x10^3u/L Lymphocytes % (24.0-44.0) % Monocytes % (0.0-12.0) % Eosinophils % (0.00-5.0) % Basophils % (0.0-0.4) % Absolute Granulocytes (1.4-6.9) x10^3/uL Basophils # (0-0.4) x10^3/uL ESR (0-20) mm/hr PT (9.4-12.5) SECONDS INR (0.8-3.0) APTT (25.1-36.5) SECONDS D-Dimer (0.0-0.50) mg/L Sodium (137-145) mmol/L Potassium (3.5-5.1) mmol/L Chloride (98-107) mmol/L Carbon Dioxide (22-30) mmol/L Anion Gap (5-15) MEQ/L BUN (7-17) mg/dL Creatinine (0.52-1.04) mg/dL Estimated GFR ML/MIN Glucose (74-106) mg/dL Lactic Acid (0.4-2.0) Calcium (8.4-10.2) mg/dL Magnesium (1.6-2.3) mg/dL Total Bilirubin (0.2-1.3) mg/dL AST (14-36) U/L ALT (0-35) U/L Alkaline Phosphatase (38-126) U/L Troponin I < 0.012 (0.000-0.034) ng/mL NT-Pro-B Natriuret Pep (<300) pg/mL Serum Total Protein (6.3-8.2) g/dL Albumin (3.5-5.0) g/dL Amylase (30-110) U/L Lipase (23-300) U/L Urine Color Dark Yellow A (Yellow) Urine Appearance Clear (Clear) Urine pH 5.5 (4.6-8.0) Ur Specific [place] >=1.030 A (1.005-1.030) Urine Protein Negative (Negative) Urine Glucose (UA) Negative (Negative) mg/dL Urine Ketones 15 A (Negative) Urine Blood Negative (Negative) Urine Nitrite Negative (Negative) Urine Bilirubin Negative (Negative) Urine Urobilinogen 1.0 A (0.2) mg/dL Ur Leukocyte Esterase Negative (Negative) U Hyaline Cast (Auto) NONE SEEN (0-2) /LPF Urine Microscopic RBC 3-5 (0-5) /HPF Urine Microscopic WBC 0-2 (0-5) /HPF Ur Epithelial Cells Rare (None Seen) /HPF Urine Bacteria None Seen (None Seen) /HPF Urine Culture Reflexed NO (NO) Urine Opiates Level NEGATIVE (NEGATIVE) Ur Methadone NEGATIVE (NEGATIVE) Urine Barbiturates NEGATIVE (NEGATIVE) Ur Phencyclidine (PCP) NEGATIVE (NEGATIVE) Urine Amphetamine NEGATIVE (NEGATIVE) U Benzodiazepine Level NEGATIVE (NEGATIVE) Urine Cocaine NEGATIVE (NEGATIVE) Urine Marijuana (THC) NEGATIVE (NEGATIVE) 01/12/23 01/12/23 01/12/23 Range/Units 09:00 09:00 09:00 WBC (4.0-10.5) x10^3/uL RBC (4.1-5.4) x10^6/uL Hgb (12.0-16.0) g/dL Hct (35-47) % MCV (78-100) fL MCH (26-32) pg MCHC (32-36) g/dL RDW (11.5-14.0) % Plt Count (150-450) x10^3/uL MPV (7.5-11.0) fL Gran % (36.0-66.0) % Immature Gran % (Auto) (0.00-0.4) % Nucleat RBC Rel Count (0.00-0.1) % Eos # (Auto) (0-0.5) x10^3/uL Immature Gran # (Auto) (0.00-0.03) x10^3u/L Absolute Lymphs (auto) (1.0-4.6) x10^3/uL Absolute Monos (auto) (0.0-1.3) x10^3/uL Absolute Nucleated RBC (0.00-0.01) x10^3u/L Lymphocytes % (24.0-44.0) % Monocytes % (0.0-12.0) % Eosinophils % (0.00-5.0) % Basophils % (0.0-0.4) % Absolute Granulocytes (1.4-6.9) x10^3/uL Basophils # (0-0.4) x10^3/uL ESR (0-20) mm/hr PT 10.4 (9.4-12.5) SECONDS INR 0.95 (0.8-3.0) APTT 26.2 (25.1-36.5) SECONDS D-Dimer < 0.19 (0.0-0.50) mg/L Sodium 141 (137-145) mmol/L Potassium 3.6 (3.5-5.1) mmol/L Chloride 106 (98-107) mmol/L Carbon Dioxide 23 (22-30) mmol/L Anion Gap 15.4 H (5-15) MEQ/L BUN 17 (7-17) mg/dL Creatinine 0.74 (0.52-1.04) mg/dL Estimated GFR > 60.0 ML/MIN Glucose 120 H (74-106) mg/dL Lactic Acid (0.4-2.0) Calcium 9.1 (8.4-10.2) mg/dL Magnesium 2.0 (1.6-2.3) mg/dL Total Bilirubin 0.50 (0.2-1.3) mg/dL AST 44 H (14-36) U/L ALT 71 H (0-35) U/L Alkaline Phosphatase 96 (38-126) U/L Troponin I < 0.012 (0.000-0.034) ng/mL NT-Pro-B Natriuret Pep 35.4 (<300) pg/mL Serum Total Protein 8.1 (6.3-8.2) g/dL Albumin 4.5 (3.5-5.0) g/dL Amylase 63 (30-110) U/L Lipase 61 (23-300) U/L Urine Color (Yellow) Urine Appearance (Clear) Urine pH (4.6-8.0) Ur Specific [place] (1.005-1.030) Urine Protein (Negative) Urine Glucose (UA) (Negative) mg/dL Urine Ketones (Negative) Urine Blood (Negative) Urine Nitrite (Negative) Urine Bilirubin (Negative) Urine Urobilinogen (0.2) mg/dL Ur Leukocyte Esterase (Negative) U Hyaline Cast (Auto) (0-2) /LPF Urine Microscopic RBC (0-5) /HPF Urine Microscopic WBC (0-5) /HPF Ur Epithelial Cells (None Seen) /HPF Urine Bacteria (None Seen) /HPF Urine Culture Reflexed (NO) Urine Opiates Level (NEGATIVE) Ur Methadone (NEGATIVE) Urine Barbiturates (NEGATIVE) Ur Phencyclidine (PCP) (NEGATIVE) Urine Amphetamine (NEGATIVE) U Benzodiazepine Level (NEGATIVE) Urine Cocaine (NEGATIVE) Urine Marijuana (THC) (NEGATIVE) 01/12/23 01/12/23 Range/Units 09:00 09:00 WBC 13.3 H (4.0-10.5) x10^3/uL RBC 4.65 (4.1-5.4) x10^6/uL Hgb 13.7 (12.0-16.0) g/dL Hct 41.5 (35-47) % MCV 89.2 (78-100) fL MCH 29.5 (26-32) pg MCHC 33.0 (32-36) g/dL RDW 13.4 (11.5-14.0) % Plt Count 331 (150-450) x10^3/uL MPV 10.5 (7.5-11.0) fL Gran % 57.8 (36.0-66.0) % Immature Gran % (Auto) 0.3 (0.00-0.4) % Nucleat RBC Rel Count 0.0 (0.00-0.1) % Eos # (Auto) 0.15 (0-0.5) x10^3/uL Immature Gran # (Auto) 0.04 H (0.00-0.03) x10^3u/L Absolute Lymphs (auto) 4.78 H (1.0-4.6) x10^3/uL Absolute Monos (auto) 0.60 (0.0-1.3) x10^3/uL Absolute Nucleated RBC 0.00 (0.00-0.01) x10^3u/L Lymphocytes % 35.9 (24.0-44.0) % Monocytes % 4.5 (0.0-12.0) % Eosinophils % 1.1 (0.00-5.0) % Basophils % 0.4 (0.0-0.4) % Absolute Granulocytes 7.70 H (1.4-6.9) x10^3/uL Basophils # 0.05 (0-0.4) x10^3/uL ESR 29 H (0-20) mm/hr PT (9.4-12.5) SECONDS INR (0.8-3.0) APTT (25.1-36.5) SECONDS D-Dimer (0.0-0.50) mg/L Sodium (137-145) mmol/L Potassium (3.5-5.1) mmol/L Chloride (98-107) mmol/L Carbon Dioxide (22-30) mmol/L Anion Gap (5-15) MEQ/L BUN (7-17) mg/dL Creatinine (0.52-1.04) mg/dL Estimated GFR ML/MIN Glucose (74-106) mg/dL Lactic Acid 0.8 (0.4-2.0) Calcium (8.4-10.2) mg/dL Magnesium (1.6-2.3) mg/dL Total Bilirubin (0.2-1.3) mg/dL AST (14-36) U/L ALT (0-35) U/L Alkaline Phosphatase (38-126) U/L Troponin I (0.000-0.034) ng/mL NT-Pro-B Natriuret Pep (<300) pg/mL Serum Total Protein (6.3-8.2) g/dL Albumin (3.5-5.0) g/dL Amylase (30-110) U/L Lipase (23-300) U/L Urine Color (Yellow) Urine Appearance (Clear) Urine pH (4.6-8.0) Ur Specific [place] (1.005-1.030) Urine Protein (Negative) Urine Glucose (UA) (Negative) mg/dL Urine Ketones (Negative) Urine Blood (Negative) Urine Nitrite (Negative) Urine Bilirubin (Negative) Urine Urobilinogen (0.2) mg/dL Ur Leukocyte Esterase (Negative) U Hyaline Cast (Auto) (0-2) /LPF Urine Microscopic RBC (0-5) /HPF Urine Microscopic WBC (0-5) /HPF Ur Epithelial Cells (None Seen) /HPF Urine Bacteria (None Seen) /HPF Urine Culture Reflexed (NO) Urine Opiates Level (NEGATIVE) Ur Methadone (NEGATIVE) Urine Barbiturates (NEGATIVE) Ur Phencyclidine (PCP) (NEGATIVE) Urine Amphetamine (NEGATIVE) U Benzodiazepine Level (NEGATIVE) Urine Cocaine (NEGATIVE) Urine Marijuana (THC) (NEGATIVE) - Progress Progress: improved Air Movement: good Blood Culture(s) Obtained: No Antibiotics given: No Medical Desision Making - Diagnostic Testing Diagnostic test were ordered, analyzed, and reviewed by me: Yes Radiological Interpretation: Interpreted by me - Risk of complications Low Risk: Low risk of morbidity from additional dx testing or treatment - Departure Departure Disposition: Home Clinical Impression: Non-cardiac chest pain Condition: Stable Critical Care Time: No Referrals: JULIO CÉSAR GIRALDO NP [Primary Care Provider] - Follow up/PCP as directed Instructions: Chest Pain (DC)
[2023-01-12 09:18] LABS: BASOPHIL % 0.4 % (0.0-0.4); Basophil (Absolute #) 0.05 x10^3/uL (0-0.4); Eosinophil % 1.1 % (0.00-5.0); Eosinophil (Absolute #) 0.15 x10^3/uL (0-0.5); Hematocrit 41.5 % (35-47); Hemoglobin 13.7 g/dL (12.0-16.0); IMMATURE GRAN # 0.04 x10^3u/L (0.00-0.03); IMMATURE GRAN % 0.3 % (0.00-0.4); Lymphocyte (Absolute #) 4.78 x10^3/uL (1.0-4.6); Lymphocytes % 35.9 % (24.0-44.0); Mean Cell Volume 89.2 fL (78-100); Mean Corpuscular Hemoglobin 29.5 pg (26-32); Mean Platelet Volume 10.5 fL (7.5-11.0); Monocytes % 4.5 % (0.0-12.0); Neutrophil % 57.8 % (36.0-66.0); Platelet Count 331 x10^3/uL (150-450); Red Blood Count 4.65 x10^6/uL (4.1-5.4); Red Cell Distribution Width 13.4 % (11.5-14.0); White Blood Count 13.3 x10^3/uL (4.0-10.5)
[2023-01-12 09:25] LABS: Erythrocyte Sedimentation Rate 29 mm/hr (0-20)
[2023-01-12 09:34] LABS: D-DIMER QUANTITATIVE < 0.19 mg/L (0.0-0.50); INR 0.95 (0.8-3.0); PROTIME 10.4 SECONDS (9.4-12.5); PTT 26.2 SECONDS (25.1-36.5)
[2023-01-12 09:39] LABS: ALBUMIN 4.5 g/dL (3.5-5.0); ALKALINE PHOSPHATASE 96 U/L (38-126); AMYLASE 63 U/L (30-110); ANION GAP 15.4 MEQ/L (5-15); BLOOD UREA NITROGEN 17 mg/dL (7-17); CHLORIDE 106 mmol/L (98-107); Calcium 9.1 mg/dL (8.4-10.2); Carbon Dioxide 23 mmol/L (22-30); Creatinine 1 0.74 mg/dL (0.52-1.04); EST GLOMERULAR FILTRATION RATE > 60.0 ML/MIN; Glucose 120 mg/dL (74-106); LIPASE 61 U/L (23-300); NT PRO BNPII 35.4 pg/mL (<300); Potassium 3.6 mmol/L (3.5-5.1); SGOT/AST 44 U/L (14-36); SGPT/ALT 71 U/L (0-35); SODIUM 141 mmol/L (137-145); Total Protein 8.1 g/dL (6.3-8.2)
[2023-01-12 10:14] LABS: Appearance Clear (Clear); Bacteria None Seen /HPF (None Seen); Bilirubin Negative (Negative); Blood Negative (Negative); Epithelial Cells Rare /HPF (None Seen); Glucose, Urine Negative (Negative); Hyaline Casts NONE SEEN /LPF (0-2); Ketones 15 (Negative); Leukocyte Esterase Negative (Negative); Nitrite Negative (Negative); Ph 5.5 (4.6-8.0); Protein,Urine Dip Negative (Negative); Specific Gravity >=1.030 (1.005-1.030); WBC 0-2 /HPF (0-5)
[2023-01-12 10:18] LABS: ADD URINE CULTURE? NO (NO)
[2023-01-12 10:24] LABS: Amphetamine,Urine NEGATIVE (NEGATIVE); Barbiturate,Urine NEGATIVE (NEGATIVE); Benzodiazepine,Urine NEGATIVE (NEGATIVE); Cocaine,Urine NEGATIVE (NEGATIVE); Methadone,Urine NEGATIVE (NEGATIVE); Opiate,Urine NEGATIVE (NEGATIVE); PCP,Urine NEGATIVE (NEGATIVE); THC,Urine NEGATIVE (NEGATIVE)
[2023-01-12] MEDS ORDERED: Hydromorphone 1 mg/ml Injection IV ONE (10:24)
[2023-01-12] MEDS ORDERED: Hydromorphone 1 mg/ml Injection ONE (10:27)
[2023-01-12 12:03] VITALS: BP 127/77; PULSE 86
[2023-01-12 12:20] VITALS: O2SAT 97
--- NOTE | 2023-01-12 21:25 | XRAY ---
Indication: Chest pain and nausea. Comparison: September 24, 2022 Portable chest slightly underinflated crowding lung bases. Remaining heart and lungs unremarkable. Bony thorax intact.
== END 2023-01-12 12:23 | disposition home or self-care (01) ==
LOC: ED 08:36
DX: R07.89 Other chest pain (principal); R11.0 Nausea; Z79.52 Long term (current) use of systemic steroids; Z79.899 Other long term (current) drug therapy; Z28.310 Unvaccinated for COVID-19; Z86.16 Personal history of COVID-19
CPT/HCPCS: 36415; 71045; 80053; 80307; 81001; 82150; 83605; 83690; 83735; 83880; 84484; 85025; 85379; 85610; 85652; 85730; 93005; 93041; 94760; 96374; 96375; 99284; J1170; A9270-GY

== ENCOUNTER 2023-01-28 12:08 | Emergency (ER) | payer BC ==
--- NOTE | 2023-01-28 12:16 | ERPHSYRPT ---
- History of Present Illness Time Seen by Provider: 01/28/23 12:15 Historian: patient Exam Limitations: no limitations Physician History: This is an obese 32-year-old white female patient who began having some nausea last evening as well as some left upper quadrant abdominal pain. The symptoms were worsening throughout the night and this morning. Patient works the [employer] shift. Patient has had a in the past as well as cholecystectomy. The pain is sharp and localized. She also had episode of diarrheal stools as well with blood present. Patient has no bleeding or clotting disorders. She has never had anything like this in the past. She has no history of diverticulitis or colitis. Patient has a history of arrhythmias, rheumatoid arthritis, gastroesophageal reflux disease, ADD, and anxiety. She is not on aspirin or NSAIDs chronically. She is not on anticoagulation therapy. Patient has a primary care provider nurse practitioner Marco Antonio. Patient was seen in our emergency department within the last couple of weeks with complaint of chest pain. She no longer has this complaint she has no shortness of breath. That work-up was negative. Timing/Duration: today Abdominal Pain Onset Location: [facility] Pain Radiation: no radiation Severity of Pain-Max: mild (To moderate) Severity of Pain-Current: mild (To moderate) Modifying Factors: Improves With: nothing Associated Symptoms: diarrhea, nausea, vomiting, No chest pain, No diaphoresis, No shortness of breath Previous symptoms: no prior history Allergies/Adverse Reactions: nifedipine [From Procardia] Allergy (Mild, Verified 01/28/23 12:25) Home Medications: buPROPion HCL [Wellbutrin Xl] 300 mg PO DAILY 06/18/21 [History] Omeprazole 40 mg PO DAILY 02/03/22 [History] Azelastine Nasal [Astelin Nasal] 1 spray INTRANASAL DAILY 04/30/22 [History] Albuterol Sulfate [Albuterol Sulfate Hfa] 18 gm IH Q4HPRN PRN 09/02/22 [History] Albuterol/Ipratropium 3ml Neb* [DUONEB 0.5-3 MG/3 ml Neb] 3 ml IH Q4HPRN PRN 09/02/22 [History] Famotidine [Pepcid] 40 mg PO DAILY 09/02/22 [History] Fexofenadine HCl [Niru Allergy] 180 mg PO DAILY 09/02/22 [History] Fluticasone Propion/Salmeterol [Fluticasone-Salmeterol 250-50] 2 puffs IH BID 09/02/22 [History] Hydroxychloroquine Sulfate 200 mg PO DAILY 09/02/22 [History] Montelukast Sodium 10 mg [Singulair 10 MG] 10 mg PO DAILY 09/02/22 [History] modafiniL [Modafinil] 200 mg PO DAILY 09/02/22 [History] Hx Tetanus, Diphtheria Vaccination/Date Given: Yes Hx Influenza Vaccination/Date Given: No Hx Pneumococcal Vaccination/Date Given: No Travel Risk - International Travel Have you traveled outside of the country in past 3 weeks: No - Coronavirus Screening Are you exhibiting any of the following symptoms?: Yes Symptoms: Vomiting/Diarrhea Close contact with a COVID-19 positive Pt in past 14-21 Days: No - Vaccine Status Have you recieved a Covid-19 vaccination: No - Review of Systems Constitutional: No Symptoms Eyes: No Symptoms Ears, Nose, & Throat: No Symptoms Respiratory: No Symptoms Cardiac: No Symptoms Abdominal/Gastrointestinal: Abdominal Pain, Nausea, Vomiting, Diarrhea, Appetite Changes Genitourinary Symptoms: No Symptoms Musculoskeletal: No Symptoms Skin: No Symptoms Neurological: No Symptoms Psychological: No Symptoms Endocrine: No Symptoms Hematologic/Lymphatic: No Symptoms Immunological/Allergic: No Symptoms All Other Systems: Reviewed and Negative - Past Medical History Pertinent Past Medical History: Yes Neurological History: No Pertinent History ENT History: No Pertinent History Cardiac History: Arrhythmia Respiratory History: Other Endocrine Medical History: Other Musculoskeletal History: Rheumatoid Arthritis GI Medical History: GERD, Gallbladder Disease History: Other Psycho-Social History: Anxiety, Attention Deficit Disorder, Depression Female Reproductive Disorders: No Pertinent History Other Medical History: HX OF COVID IN JUNE, FATTY LIVER, PER PATIENT HAS AN "EXTRA HEART BEAT" - Past Surgical History Past Surgical History: Yes Neuro Surgical History: No Pertinent History Cardiac: No Pertinent History Respiratory: No Pertinent History Gastrointestinal: Cholecystectomy Genitourinary: No Pertinent History Musculoskeletal: No Pertinent History Female Surgical History: Section Other Surgical History: - Social History Smoking Status: Former smoker How long have you smoked: 1 YEAR Exposure to second hand smoke: No Drug Use: none Patient Lives Alone: Yes - Nursing Vital Signs Nursing Vital Signs: Initial Vital Signs Temperature 97 F 01/28/23 12:21 Pulse Rate 100 H 01/28/23 12:21 Respiratory Rate 18 01/28/23 12:21 Blood Pressure 139/90 01/28/23 12:21 O2 Sat by Pulse Oximetry 97 01/28/23 12:21 Pain Scale Pain Intensity 3 - Physical Exam General Appearance: no apparent distress, alert, anxiety, obese Eye Exam: PERRL/EOMI, eyes nml inspection Ears, Nose, Throat Exam: normal ENT inspection, moist mucous membranes Neck Exam: normal inspection, non-tender, supple, full range of motion Respiratory Exam: normal breath sounds, lungs clear, airway intact, No chest tenderness, No respiratory distress Cardiovascular Exam: regular rate/rhythm, normal heart sounds, normal peripheral pulses Gastrointestinal/Abdomen Exam: soft, normal bowel sounds, tenderness (Left upper quadrant to palpation), guarding (Left upper quadrant to palpation) Pelvic Exam: not done Rectal Exam: not done Back Exam: normal inspection, normal range of motion, No CVA tenderness, No vertebral tenderness Extremity Exam: normal inspection, normal range of motion, pelvis stable Neurologic Exam: alert, oriented x 3, cooperative, beater room helper II-XII nml as tested, normal mood/affect, nml cerebellar function, nml station & gait, sensation nml Skin Exam: normal color, warm, dry Lymphatic Exam: No adenopathy SpO2 Interpretation: normal O2 Delivery: Room Air - Course Nursing assessment & vital signs reviewed: Yes Ordered Tests: Active Orders 24 hr Category Date Time Status IV Insertion STAT Care 01/28/23 12:27 Active ABDOMEN AND PELVIS W/0 CONTRAS [CT] Stat Exams 01/28/23 12:28 Completed AMYLASE Stat Lab 01/28/23 12:37 Completed CBC W DIFF Stat Lab 01/28/23 12:37 Completed CMP Stat Lab 01/28/23 12:37 Completed HCG QUALITATIVE, URINE Stat Lab 01/28/23 15:23 Completed LIPASE Stat Lab 01/28/23 12:37 Completed UA W/RFX UR CULTURE Stat Lab 01/28/23 15:20 Completed Medication Summary Discontinued Medications Generic Name Dose Route Start Last Admin Trade Name Freq PRN Reason Stop Dose Admin Hydromorphone HCl 1 mg 01/28/23 12:27 01/28/23 12:42 Hydromorphone 1 Mg/1ml Inj IV 01/28/23 12:28 1 mg STAT ONE Administration Hydromorphone HCl Confirm 01/28/23 12:37 Hydromorphone 1 Mg/1ml Inj Administered 01/28/23 12:38 Dose 1 mg .ROUTE .STK-MED ONE Sodium Chloride 1,000 mls @ 999 mls/hr 01/28/23 12:27 01/28/23 14:01 Sodium Chloride 0.9% 1000 Ml IV 01/28/23 13:27 Infused .Q1H1M STA Infusion Sodium Chloride Confirm 01/28/23 12:37 Sodium Chloride 0.9% 1000 Ml Administered 01/28/23 12:38 Dose 1,000 mls @ ud .ROUTE .STK-MED ONE Sodium Chloride 1,000 mls @ 999 mls/hr 01/28/23 13:07 01/28/23 15:14 Sodium Chloride 0.9% 1000 Ml IV 01/28/23 14:07 Infused .Q1H1M STA Infusion Sodium Chloride Confirm 01/28/23 13:10 Sodium Chloride 0.9% 1000 Ml Administered 01/28/23 13:11 Dose 1,000 mls @ ud .ROUTE .STK-MED ONE Ondansetron HCl 4 mg 01/28/23 12:27 01/28/23 12:41 Ondansetron Hcl 4 Mg/2 Ml Vial IV 01/28/23 12:28 4 mg STAT ONE Administration Ondansetron HCl Confirm 01/28/23 12:36 Ondansetron Hcl 4 Mg/2 Ml Vial Administered 01/28/23 12:37 Dose 4 mg .ROUTE .STK-MED ONE Prochlorperazine Edisylate 5 mg 01/28/23 13:07 01/28/23 13:12 Prochlorperazine Edisylate 10 Mg/2 Ml Vial IV 01/28/23 13:08 5 mg STAT ONE Administration Prochlorperazine Edisylate Confirm 01/28/23 13:10 Prochlorperazine Edisylate 10 Mg/2 Ml Vial Administered 01/28/23 13:11 Dose 10 mg .ROUTE .STK-MED ONE Lab/Rad Data: Laboratory Result Diagrams 01/28/23 12:37 01/28/23 12:37 Laboratory Results 01/28/23 01/28/23 01/28/23 Range/Units 15:23 15:20 13:55 WBC (4.0-10.5) x10^3/uL RBC (4.1-5.4) x10^6/uL Hgb (12.0-16.0) g/dL Hct (35-47) % MCV (78-100) fL MCH (26-32) pg MCHC (32-36) g/dL RDW (11.5-14.0) % Plt Count (150-450) x10^3/uL MPV (7.5-11.0) fL Gran % (36.0-66.0) % Immature Gran % (Auto) (0.00-0.4) % Nucleat RBC Rel Count (0.00-0.1) % Eos # (Auto) (0-0.5) x10^3/uL Immature Gran # (Auto) (0.00-0.03) x10^3u/L Absolute Lymphs (auto) (1.0-4.6) x10^3/uL Absolute Monos (auto) (0.0-1.3) x10^3/uL Absolute Nucleated RBC (0.00-0.01) x10^3u/L Lymphocytes % (24.0-44.0) % Monocytes % (0.0-12.0) % Eosinophils % (0.00-5.0) % Basophils % (0.0-0.4) % Absolute Granulocytes (1.4-6.9) x10^3/uL Basophils # (0-0.4) x10^3/uL Sodium (137-145) mmol/L Potassium (3.5-5.1) mmol/L Chloride (98-107) mmol/L Carbon Dioxide (22-30) mmol/L Anion Gap (5-15) MEQ/L BUN (7-17) mg/dL Creatinine (0.52-1.04) mg/dL Estimated GFR ML/MIN Glucose (74-106) mg/dL Calcium (8.4-10.2) mg/dL Total Bilirubin (0.2-1.3) mg/dL AST (14-36) U/L ALT (0-35) U/L Alkaline Phosphatase (38-126) U/L Serum Total Protein (6.3-8.2) g/dL Albumin (3.5-5.0) g/dL Amylase (30-110) U/L Lipase (23-300) U/L Urine Color Dark Yellow A (Yellow) Urine Appearance Clear (Clear) Urine pH 5.5 (4.6-8.0) Ur Specific [place] 1.025 (1.005-1.030) Urine Protein Negative (Negative) Urine Glucose (UA) Negative (Negative) mg/dL Urine Ketones Trace A (Negative) Urine Blood Negative (Negative) Urine Nitrite Negative (Negative) Urine Bilirubin Negative (Negative) Urine Urobilinogen 1.0 A (0.2) mg/dL Ur Leukocyte Esterase Trace A (Negative) U Hyaline Cast (Auto) NONE SEEN (0-2) /LPF Urine Microscopic RBC 0-2 (0-5) /HPF Urine Microscopic WBC 0-2 (0-5) /HPF Ur Epithelial Cells Rare (None Seen) /HPF Urine Bacteria None Seen (None Seen) /HPF Urine Culture Reflexed NO (NO) Urine HCG, Qual NEGATIVE (NEGATIVE) Influenza Type A Ag NEGATIVE (NEGATIVE) Influenza Type B Ag NEGATIVE (NEGATIVE) RSV (PCR) NEGATIVE (NEGATIVE) SARS-CoV-2 (PCR) NEGATIVE (NEGATIVE) 01/28/23 01/28/23 Range/Units 12:37 12:37 WBC 8.4 (4.0-10.5) x10^3/uL RBC 4.50 (4.1-5.4) x10^6/uL Hgb 13.5 (12.0-16.0) g/dL Hct 41.0 (35-47) % MCV 91.1 (78-100) fL MCH 30.0 (26-32) pg MCHC 32.9 (32-36) g/dL RDW 13.3 (11.5-14.0) % Plt Count 255 (150-450) x10^3/uL MPV 10.1 (7.5-11.0) fL Gran % 82.4 H (36.0-66.0) % Immature Gran % (Auto) 0.4 (0.00-0.4) % Nucleat RBC Rel Count 0.0 (0.00-0.1) % Eos # (Auto) 0.14 (0-0.5) x10^3/uL Immature Gran # (Auto) 0.03 (0.00-0.03) x10^3u/L Absolute Lymphs (auto) 1.03 (1.0-4.6) x10^3/uL Absolute Monos (auto) 0.25 (0.0-1.3) x10^3/uL Absolute Nucleated RBC 0.00 (0.00-0.01) x10^3u/L Lymphocytes % 12.3 L (24.0-44.0) % Monocytes % 3.0 (0.0-12.0) % Eosinophils % 1.7 (0.00-5.0) % Basophils % 0.2 (0.0-0.4) % Absolute Granulocytes 6.93 H (1.4-6.9) x10^3/uL Basophils # 0.02 (0-0.4) x10^3/uL Sodium 137 (137-145) mmol/L Potassium 4.2 (3.5-5.1) mmol/L Chloride 105 (98-107) mmol/L Carbon Dioxide 21 L (22-30) mmol/L Anion Gap 15.2 H (5-15) MEQ/L BUN 13 (7-17) mg/dL Creatinine 0.59 (0.52-1.04) mg/dL Estimated GFR > 60.0 ML/MIN Glucose 146 H (74-106) mg/dL Calcium 8.5 (8.4-10.2) mg/dL Total Bilirubin 0.90 (0.2-1.3) mg/dL AST 87 H (14-36) U/L ALT 99 H (0-35) U/L Alkaline Phosphatase 80 (38-126) U/L Serum Total Protein 7.4 (6.3-8.2) g/dL Albumin 4.1 (3.5-5.0) g/dL Amylase 95 (30-110) U/L Lipase 586 H (23-300) U/L Urine Color (Yellow) Urine Appearance (Clear) Urine pH (4.6-8.0) Ur Specific [place] (1.005-1.030) Urine Protein (Negative) Urine Glucose (UA) (Negative) mg/dL Urine Ketones (Negative) Urine Blood (Negative) Urine Nitrite (Negative) Urine Bilirubin (Negative) Urine Urobilinogen (0.2) mg/dL Ur Leukocyte Esterase (Negative) U Hyaline Cast (Auto) (0-2) /LPF Urine Microscopic RBC (0-5) /HPF Urine Microscopic WBC (0-5) /HPF Ur Epithelial Cells (None Seen) /HPF Urine Bacteria (None Seen) /HPF Urine Culture Reflexed (NO) Urine HCG, Qual (NEGATIVE) Influenza Type A Ag (NEGATIVE) Influenza Type B Ag (NEGATIVE) RSV (PCR) (NEGATIVE) SARS-CoV-2 (PCR) (NEGATIVE) - Progress Progress: improved, re-examined Progress Note: 01/28/23 13:21 CT scan of the abdomen pelvis without contrast shows a new, prominent appendix without periappendiceal stranding. In the correct clinical setting, mild/early appendicitis should be considered. This was discussed with the patient. Patient does not have pain in the right lower quadrant. Her pain is in the left upper quadrant and left flank regions. 01/28/23 15:55 Clinically, the patient states she is feeling much better. I reviewed the results of the CAT scan with this patient. Clinically she does not have acute appendicitis. I did explain to her what signs and symptoms could indicate that she is having acute appendicitis attack and she will return to the emergency department if those arise. She also is afebrile and has a normal white count and the CAT scan does not show any signs of acute pancreatitis. However amylase is normal and lipase is slightly elevated. She prefers to try outpatient therapy which would be clear liquid diet for approximately 24 hours and slowly advance her diet to a regular diet. She is to avoid fatty greasy spicy foods. She does have Zofran at home but she also would like a prescription for Phenergan to have in the event Zofran is not effective This patient's medical issue is 1 of moderate complexity. Level complexity and the work-up performed is based on the review of the patient's past medical history, review of the patient's medication list, review of the patient's drug allergy list, history of present illness and and physical findings on examination. The patient had an intravenous line placed and she received 2 L of normal saline infusion. We provided her with intravenous Zofran as well as intravenous Compazine. We performed a CT scan of the abdomen pelvis without contrast with the above-stated results. I reviewed these results with the patient and what to look for in order to return to the emergency department if her symptoms recur/worsen. We ordered a CBC, CMP, test and urinalysis. I reviewed the above-stated work-up results and I reviewed those findings with the patient. Counseled pt/family regarding: lab results, diagnosis, need for follow-up, rad results Medical Desision Making - Diagnostic Testing Diagnostic test were ordered, analyzed, and reviewed by me: Yes Radiological Interpretation: Reviewed by me, Teleradiologist Report - Risk of complications The pt has a mod risk of morbidity or mortality based on: Need for prescription drug management - Departure Departure Disposition: Home Clinical Impression: Pancreatitis Condition: Stable Critical Care Time: No Referrals: JULIO CÉSAR GIRALDO NP [Primary Care Provider] - Follow up/PCP as directed Additional Instructions: Clear liquid diet for 24 hours. Slowly advance her diet to a regular diet. Avoid fatty greasy spicy foods. Use your Zofran to control nausea if present. Use the Phenergan if the Zofran is not effective. Return to the emergency department if your symptoms worsen/recur Forms: Work/School Release Form Prescriptions: Promethazine HCl 25 mg [Phenergan 25 mg] 25 mg PO Q8H PRN PRN #10 tablet PRN Reason: Nausea/Vomiting
[2023-01-28] MEDS ORDERED: Zofran 4 MG/2 ML VIAL IV ONE (12:27)
[2023-01-28] MEDS ORDERED: Sodium Chloride 0.9% 1000 ML 1,000 ML IV STA ×2 (12:27→13:07)
[2023-01-28] MEDS ORDERED: Hydromorphone 1 mg/ml Injection IV ONE (12:27)
[2023-01-28 12:35] VITALS: TEMP 97
[2023-01-28] MEDS ORDERED: Zofran 4 MG/2 ML VIAL ONE (12:36)
[2023-01-28] MEDS ORDERED: Hydromorphone 1 mg/ml Injection ONE (12:37)
[2023-01-28] MEDS ORDERED: Sodium Chloride 0.9% 1000 ML 1,000 ML ONE ×2 (12:37→13:10)
[2023-01-28 12:38] LABS: Absolute Neutrophil Ct (ANC) 6.93 x10^3/uL (1.4-6.9); BASOPHIL % 0.2 % (0.0-0.4); Basophil (Absolute #) 0.02 x10^3/uL (0-0.4); Eosinophil % 1.7 % (0.00-5.0); Eosinophil (Absolute #) 0.14 x10^3/uL (0-0.5); Hemoglobin 13.5 g/dL (12.0-16.0); IMMATURE GRAN # 0.03 x10^3u/L (0.00-0.03); IMMATURE GRAN % 0.4 % (0.00-0.4); Lymphocyte (Absolute #) 1.03 x10^3/uL (1.0-4.6); Lymphocytes % 12.3 % (24.0-44.0); Mean Cell Volume 91.1 fL (78-100); Mean Corpuscular Hgb Concent. 32.9 g/dL (32-36); Mean Platelet Volume 10.1 fL (7.5-11.0); Monocyte (Absolute #) 0.25 x10^3/uL (0.0-1.3); Neutrophil % 82.4 % (36.0-66.0); Platelet Count 255 x10^3/uL (150-450); Red Cell Distribution Width 13.3 % (11.5-14.0); White Blood Count 8.4 x10^3/uL (4.0-10.5)
[2023-01-28 12:53] LABS: ALBUMIN 4.1 g/dL (3.5-5.0); ALKALINE PHOSPHATASE 80 U/L (38-126); AMYLASE 95 U/L (30-110); ANION GAP 15.2 MEQ/L (5-15); BLOOD UREA NITROGEN 13 mg/dL (7-17); CHLORIDE 105 mmol/L (98-107); Calcium 8.5 mg/dL (8.4-10.2); Carbon Dioxide 21 mmol/L (22-30); Creatinine 1 0.59 mg/dL (0.52-1.04); EST GLOMERULAR FILTRATION RATE > 60.0 ML/MIN; Glucose 146 mg/dL (74-106); LIPASE 586 U/L (23-300); Potassium 4.2 mmol/L (3.5-5.1); SGOT/AST 87 U/L (14-36); SGPT/ALT 99 U/L (0-35); SODIUM 137 mmol/L (137-145); Total Protein 7.4 g/dL (6.3-8.2)
[2023-01-28] MEDS ORDERED: Compazine 10 MG/2 ML IV ONE (13:07)
[2023-01-28] MEDS ORDERED: Compazine 10 MG/2 ML ONE (13:10)
--- NOTE | 2023-01-28 13:16 | XRAY ---
Indication: Left upper quadrant pain. Nausea. Multiple contiguous axial images obtained through the abdomen and pelvis without contrast. Comparison: April 27, 2014 Lung bases again demonstrate a few tiny left lower lobe and right infrahilar calcified granulomas. No infiltrate or effusion. Heart not enlarged. Noncontrasted stomach and bowel loops appear nonobstructed. Appendix is now prominent up to 10 mm without periappendiceal stranding. Mild/early appendicitis not completely excluded in the right clinical setting. Uterus again demonstrates IUD in situ. Again 20.7 cm fatty hepatomegaly and cholecystectomy. No free fluid/air. Remaining liver, pancreas, spleen, adrenal glands, kidneys, ureters, bladder, uterus, and aorta are unremarkable for noncontrast exam. Osseous structures intact. Impression: 1. New prominent appendix without periappendiceal stranding. Mild/early appendicitis not completely excluded in the right clinical setting. 2. Again fatty hepatomegaly and old granulomatous disease. 3. Remaining CT abdomen/pelvis without contrast exam is negative.
[2023-01-28 14:33] LABS: INFLUENZA A NEGATIVE (NEGATIVE); INFLUENZA B NEGATIVE (NEGATIVE); RESPIRATORY SYNCTIAL VIRUS NEGATIVE (NEGATIVE); SARS-CoV-2 Xpert Express NEGATIVE (NEGATIVE)
[2023-01-28 15:26] LABS: HCG URINE TEST NEGATIVE (NEGATIVE)
[2023-01-28 15:28] LABS: Appearance Clear (Clear); Bacteria None Seen /HPF (None Seen); Bilirubin Negative (Negative); Blood Negative (Negative); Epithelial Cells Rare /HPF (None Seen); Glucose, Urine Negative (Negative); Hyaline Casts NONE SEEN /LPF (0-2); Ketones Trace (Negative); Leukocyte Esterase Trace (Negative); Nitrite Negative (Negative); Ph 5.5 (4.6-8.0); Protein,Urine Dip Negative (Negative); RBC 0-2 /HPF (0-5); Specific Gravity 1.025 (1.005-1.030); WBC 0-2 /HPF (0-5)
[2023-01-28 15:30] LABS: ADD URINE CULTURE? NO (NO)
[2023-01-28 16:26] VITALS: BP 113/71; PULSE 76; RESP 18; O2SAT 97
== END 2023-01-28 16:42 | disposition home or self-care (01) ==
LOC: ED 12:08
DX: K85.90 Acute pancreatitis without necrosis or infection, unspecified (principal); R10.12 Left upper quadrant pain; R11.0 Nausea; R19.7 Diarrhea, unspecified; Z79.899 Other long term (current) drug therapy; Z28.310 Unvaccinated for COVID-19; Z86.16 Personal history of COVID-19
CPT/HCPCS: 0241U; 36000; 36415; 74176; 80053; 81001; 81025; 82150; 83690; 85025; 96360; 96374; 96375; 99284; J1170; J2405

== ENCOUNTER 2023-02-02 22:33 | Emergency (ER) | payer BC ==
[2023-02-02 22:44] VITALS: TEMP 97.6
--- NOTE | 2023-02-02 23:06 | ERPHSYRPT ---
- History of Present Illness Time Seen by Provider: 02/02/23 22:50 Historian: patient Exam Limitations: no limitations Patient Subjective Stated Complaint: Pt states " I have stomach pain on my left side and my back hurts. I don't have diarrhea or vomiting anymore. I was just in here recently." Triage Nursing Assessment: pt ambulatory to bed by self with emesis bag, pt alert and oriented x3, skin pwd, pt c/o L sided back pain that radiates to LUQ, pt was seen here on 01/28/23 and went to a different ER after the and was diagnosed with a "stomach bug per patient." pt was prescribed phenergan but has not taken since yesterday. pt was at work tonight and left to come here. Physician History: This is a morbidly obese 32-year-old white female patient of nurse practitioner Marco Antonio who presents with recurrent left upper quadrant abdominal pain with radiation to her left flank. Patient was seen in our emergency department by me on 01/28/2023 with the same complaint. At that time patient underwent a full work-up including CAT scan of the abdomen pelvis which did not show anything acute in the abdomen or the pelvis. Patient had a mildly elevated lipase with a normal amylase. Her symptoms improved with pain medication, intravenous Zofran and intravenous Compazine. 2 days ago, the patient states her symptoms recurred and she was closer to [facility] so she went to the emergency department there where they performed a full abdominal pain, nausea vomiting work-up. She states she was told that the work-up was negative or normal and that she was having flu symptoms. This evening, after being at work for 3 hours, the patient states she started having the left upper quadrant abdominal pain with radiation into the left flank and associated nausea vomiting and cannot hold anything down. Patient has a history of arrhythmia, rheumatoid arthritis, gastroesophageal reflux disease and anxiety. I requested the emergency department records from [facility] in [facility] and I will review reviewing these as independent information. Timing/Duration: today Quality: sharpness Abdominal Pain Onset Location: LUQ Pain Radiation: flank (Left) Severity of Pain-Max: moderate Severity of Pain-Current: moderate Modifying Factors: Improves With: vomiting Associated Symptoms: loss of appetite, nausea, vomiting Previous symptoms: same symptoms as today, recently seen, recently treated Allergies/Adverse Reactions: nifedipine [From Procardia] Allergy (Mild, Verified 02/02/23 22:42) Home Medications: buPROPion HCL [Wellbutrin Xl] 300 mg PO DAILY 06/18/21 [History] Omeprazole 40 mg PO DAILY 02/03/22 [History] Azelastine Nasal [Astelin Nasal] 1 spray INTRANASAL DAILY 04/30/22 [History] Albuterol Sulfate [Albuterol Sulfate Hfa] 18 gm IH Q4HPRN PRN 09/02/22 [History] Albuterol/Ipratropium 3ml Neb* [DUONEB 0.5-3 MG/3 ml Neb] 3 ml IH Q4HPRN PRN 09/02/22 [History] Famotidine [Pepcid] 40 mg PO DAILY 09/02/22 [History] Fexofenadine HCl [Niru Allergy] 180 mg PO DAILY 09/02/22 [History] Fluticasone Propion/Salmeterol [Fluticasone-Salmeterol 250-50] 2 puffs IH BID 0 09/02/22 [History] Hydroxychloroquine Sulfate 200 mg PO DAILY 09/02/22 [History] Montelukast Sodium 10 mg [Singulair 10 MG] 10 mg PO DAILY 09/02/22 [History] modafiniL [Modafinil] 200 mg PO DAILY 09/02/22 [History] Hx Tetanus, Diphtheria Vaccination/Date Given: Yes Hx Influenza Vaccination/Date Given: No Hx Pneumococcal Vaccination/Date Given: No Travel Risk - International Travel Have you traveled outside of the country in past 3 weeks: No - Coronavirus Screening Are you exhibiting any of the following symptoms?: No Close contact with a COVID-19 positive Pt in past 14-21 Days: No - Vaccine Status Have you recieved a Covid-19 vaccination: No - Review of Systems Constitutional: No Symptoms Eyes: No Symptoms Ears, Nose, & Throat: No Symptoms Respiratory: No Symptoms Cardiac: No Symptoms Abdominal/Gastrointestinal: Abdominal Pain (Left upper quadrant), Nausea, Vomiting, Appetite Changes Genitourinary Symptoms: Flank Pain (Left flank) Musculoskeletal: No Symptoms Skin: No Symptoms Neurological: No Symptoms Psychological: No Symptoms Endocrine: No Symptoms Hematologic/Lymphatic: No Symptoms Immunological/Allergic: No Symptoms All Other Systems: Reviewed and Negative - Past Medical History Pertinent Past Medical History: Yes Neurological History: No Pertinent History ENT History: No Pertinent History Cardiac History: Arrhythmia Respiratory History: Other Endocrine Medical History: Other Musculoskeletal History: Rheumatoid Arthritis GI Medical History: GERD, Gallbladder Disease History: Other Psycho-Social History: Anxiety, Attention Deficit Disorder, Depression Female Reproductive Disorders: No Pertinent History Other Medical History: HX OF COVID IN JUNE, FATTY LIVER, PER PATIENT HAS AN "EXTRA HEART BEAT" - Past Surgical History Past Surgical History: Yes Neuro Surgical History: No Pertinent History Cardiac: No Pertinent History Respiratory: No Pertinent History Gastrointestinal: Cholecystectomy Genitourinary: No Pertinent History Musculoskeletal: No Pertinent History Female Surgical History: Section Other Surgical History: - Social History Smoking Status: Never smoker How long have you smoked: 1 YEAR Exposure to second hand smoke: No Drug Use: none Patient Lives Alone: No - Female History Hx Last Menstrual Period: IUD Hx Now: No - Nursing Vital Signs Nursing Vital Signs: Initial Vital Signs Temperature 97.6 F 02/02/23 22:43 Pulse Rate 111 H 02/02/23 22:43 Respiratory Rate 17 02/02/23 22:43 Blood Pressure 145/102 02/02/23 22:43 O2 Sat by Pulse Oximetry 98 02/02/23 22:43 Pain Scale Pain Intensity 10 - Physical Exam General Appearance: no apparent distress, alert, anxiety, obese Eye Exam: PERRL/EOMI, eyes nml inspection Ears, Nose, Throat Exam: normal ENT inspection, moist mucous membranes Neck Exam: normal inspection, non-tender, supple, full range of motion Respiratory Exam: normal breath sounds, lungs clear, airway intact, No chest tenderness, No respiratory distress Cardiovascular Exam: tachycardia Gastrointestinal/Abdomen Exam: soft, normal bowel sounds, tenderness (Left upper quadrant), guarding (Left upper quadrant to palpation) Pelvic Exam: not done Rectal Exam: not done Back Exam: normal inspection, normal range of motion, No CVA tenderness, No vertebral tenderness Extremity Exam: normal inspection, normal range of motion, pelvis stable Neurologic Exam: alert, oriented x 3, cooperative, 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, normal mood/affect, nml cerebellar function, nml station & gait, sensation nml Skin Exam: normal color, warm, dry Lymphatic Exam: No adenopathy SpO2 Interpretation: normal SpO2: 98 O2 Delivery: Room Air - Course Nursing assessment & vital signs reviewed: Yes Ordered Tests: Active Orders 24 hr Category Date Time Status IV Insertion STAT Care 02/02/23 23:11 Active AMYLASE Stat Lab 02/02/23 23:30 Completed CBC W DIFF Stat Lab 02/02/23 23:30 Completed CMP Stat Lab 02/02/23 23:30 Completed CULTURE,URINE Stat Lab 02/02/23 23:13 Received HCG QUALITATIVE, SERUM Stat Lab 02/02/23 23:30 Completed LIPASE Stat Lab 02/02/23 23:30 Completed Lactic Acid Stat Lab 02/02/23 23:30 Completed UA W/RFX UR CULTURE Stat Lab 02/02/23 23:13 Completed Medication Summary Generic Name Dose Route Start Last Admin Trade Name Frenina PRN Reason Stop Dose Admin Sodium Chloride 1,000 mls @ 999 mls/hr 02/02/23 23:11 02/02/23 23:18 Sodium Chloride 0.9% 1000 Ml IV 02/03/23 00:11 999 mls/hr .Q1H1M STA Administration Ceftriaxone Sodium/Dextrose 1 g in 50 mls @ 100 mls/hr 02/03/23 00:05 Rocephin 1 Gm-D5w 50 Ml Bag IV 02/03/23 00:34 STAT STA Discontinued Medications Generic Name Dose Route Start Last Admin Trade Name Silvia PRN Reason Stop Dose Admin Hydromorphone HCl 1 mg 02/02/23 23:11 02/02/23 23:18 Hydromorphone 1 Mg/1ml Inj IV 02/02/23 23:12 1 mg STAT ONE Administration Hydromorphone HCl Confirm 02/02/23 23:16 Hydromorphone 1 Mg/1ml Inj Administered 02/02/23 23:17 Dose 1 mg .ROUTE .STK-MED ONE Sodium Chloride Confirm 02/02/23 23:16 Sodium Chloride 0.9% 1000 Ml Administered 02/02/23 23:17 Dose 1,000 mls @ ud .ROUTE .STK-MED ONE Ondansetron HCl 4 mg 02/02/23 23:11 02/02/23 23:17 Ondansetron Hcl 4 Mg/2 Ml Vial IV 02/02/23 23:12 4 mg STAT ONE Administration Ondansetron HCl Confirm 02/02/23 23:15 Ondansetron Hcl 4 Mg/2 Ml Vial Administered 02/02/23 23:16 Dose 4 mg .ROUTE .STK-MED ONE Pantoprazole Sodium 40 mg 02/02/23 23:11 02/02/23 23:18 Pantoprazole 40 Mg Vial IV 02/02/23 23:12 40 mg STAT ONE Administration Pantoprazole Sodium Confirm 02/02/23 23:16 Pantoprazole 40 Mg Vial Administered 02/02/23 23:17 Dose 40 mg IV .STK-MED ONE Prochlorperazine Edisylate 5 mg 02/02/23 23:11 02/02/23 23:18 Prochlorperazine Edisylate 10 Mg/2 Ml Vial IV 02/02/23 23:12 5 mg STAT ONE Administration Prochlorperazine Edisylate Confirm 02/02/23 23:16 Prochlorperazine Edisylate 10 Mg/2 Ml Vial Administered 02/02/23 23:17 Dose 10 mg .ROUTE .STK-MED ONE Lab/Rad Data: Laboratory Result Diagrams 02/02/23 23:30 02/02/23 23:30 Laboratory Results 02/02/23 02/02/23 02/02/23 Range/Units 23:30 23:30 23:30 WBC (4.0-10.5) x10^3/uL RBC (4.1-5.4) x10^6/uL Hgb (12.0-16.0) g/dL Hct (35-47) % MCV (78-100) fL MCH (26-32) pg MCHC (32-36) g/dL RDW (11.5-14.0) % Plt Count (150-450) x10^3/uL MPV (7.5-11.0) fL Gran % (36.0-66.0) % Immature Gran % (Auto) (0.00-0.4) % Nucleat RBC Rel Count (0.00-0.1) % Eos # (Auto) (0-0.5) x10^3/uL Immature Gran # (Auto) (0.00-0.03) x10^3u/L Absolute Lymphs (auto) (1.0-4.6) x10^3/uL Absolute Monos (auto) (0.0-1.3) x10^3/uL Absolute Nucleated RBC (0.00-0.01) x10^3u/L Lymphocytes % (24.0-44.0) % Monocytes % (0.0-12.0) % Eosinophils % (0.00-5.0) % Basophils % (0.0-0.4) % Absolute Granulocytes (1.4-6.9) x10^3/uL Basophils # (0-0.4) x10^3/uL Sodium 139 (137-145) mmol/L Potassium 3.4 L (3.5-5.1) mmol/L Chloride 105 (98-107) mmol/L Carbon Dioxide 23 (22-30) mmol/L Anion Gap 15.1 H (5-15) MEQ/L BUN 7 (7-17) mg/dL Creatinine 0.64 (0.52-1.04) mg/dL Estimated GFR > 60.0 ML/MIN Glucose 136 H (74-106) mg/dL Lactic Acid 1.5 (0.4-2.0) Calcium 8.8 (8.4-10.2) mg/dL Total Bilirubin 0.30 (0.2-1.3) mg/dL AST 93 H (14-36) U/L ALT 156 H (0-35) U/L Alkaline Phosphatase 106 (38-126) U/L Serum Total Protein 7.1 (6.3-8.2) g/dL Albumin 4.0 (3.5-5.0) g/dL Amylase 67 (30-110) U/L Lipase 388 H (23-300) U/L Serum HCG, Qual NEGATIVE (NEGATIVE) Urine Color (Yellow) Urine Appearance (Clear) Urine pH (4.6-8.0) Ur Specific [place] (1.005-1.030) Urine Protein (Negative) Urine Glucose (UA) (Negative) mg/dL Urine Ketones (Negative) Urine Blood (Negative) Urine Nitrite (Negative) Urine Bilirubin (Negative) Urine Urobilinogen (0.2) mg/dL Ur Leukocyte Esterase (Negative) U Hyaline Cast (Auto) (0-2) /LPF Urine Microscopic RBC (0-5) /HPF Urine Microscopic WBC (0-5) /HPF Ur Epithelial Cells (None Seen) /HPF Urine Bacteria (None Seen) /HPF Urine Culture Reflexed (NO) 02/02/23 02/02/23 Range/Units 23:30 23:13 WBC 8.0 (4.0-10.5) x10^3/uL RBC 4.42 (4.1-5.4) x10^6/uL Hgb 13.0 (12.0-16.0) g/dL Hct 40.4 (35-47) % MCV 91.4 (78-100) fL MCH 29.4 (26-32) pg MCHC 32.2 (32-36) g/dL RDW 13.5 (11.5-14.0) % Plt Count 296 (150-450) x10^3/uL MPV 10.5 (7.5-11.0) fL Gran % 60.5 (36.0-66.0) % Immature Gran % (Auto) 0.4 (0.00-0.4) % Nucleat RBC Rel Count 0.0 (0.00-0.1) % Eos # (Auto) 0.14 (0-0.5) x10^3/uL Immature Gran # (Auto) 0.03 (0.00-0.03) x10^3u/L Absolute Lymphs (auto) 2.59 (1.0-4.6) x10^3/uL Absolute Monos (auto) 0.34 (0.0-1.3) x10^3/uL Absolute Nucleated RBC 0.00 (0.00-0.01) x10^3u/L Lymphocytes % 32.6 (24.0-44.0) % Monocytes % 4.3 (0.0-12.0) % Eosinophils % 1.8 (0.00-5.0) % Basophils % 0.4 (0.0-0.4) % Absolute Granulocytes 4.82 (1.4-6.9) x10^3/uL Basophils # 0.03 (0-0.4) x10^3/uL Sodium (137-145) mmol/L Potassium (3.5-5.1) mmol/L Chloride (98-107) mmol/L Carbon Dioxide (22-30) mmol/L Anion Gap (5-15) MEQ/L BUN (7-17) mg/dL Creatinine (0.52-1.04) mg/dL Estimated GFR ML/MIN Glucose (74-106) mg/dL Lactic Acid (0.4-2.0) Calcium (8.4-10.2) mg/dL Total Bilirubin (0.2-1.3) mg/dL AST (14-36) U/L ALT (0-35) U/L Alkaline Phosphatase (38-126) U/L Serum Total Protein (6.3-8.2) g/dL Albumin (3.5-5.0) g/dL Amylase (30-110) U/L Lipase (23-300) U/L Serum HCG, Qual (NEGATIVE) Urine Color Dark Yellow A (Yellow) Urine Appearance Clear (Clear) Urine pH 6.5 (4.6-8.0) Ur Specific [place] 1.020 (1.005-1.030) Urine Protein Negative (Negative) Urine Glucose (UA) Negative (Negative) mg/dL Urine Ketones Trace A (Negative) Urine Blood Negative (Negative) Urine Nitrite Negative (Negative) Urine Bilirubin Negative (Negative) Urine Urobilinogen 1.0 A (0.2) mg/dL Ur Leukocyte Esterase Moderate A (Negative) U Hyaline Cast (Auto) NONE SEEN (0-2) /LPF Urine Microscopic RBC 0-2 (0-5) /HPF Urine Microscopic WBC 6-10 A (0-5) /HPF Ur Epithelial Cells Rare (None Seen) /HPF Urine Bacteria Few A (None Seen) /HPF Urine Culture Reflexed YES (NO) - Progress Progress: improved, re-examined Progress Note: 02/03/23 00:06 This patient's medical issue is 1 of moderate complexity. The level complexity in the work-up performed is based on review of the patient's past medical history, review of the patient's medication list, review of the patient's drug allergy list, history of present illness and the physical findings on examination. Work-up in this patient included placement of an intravenous line, infusion 1 L normal saline, infusion of Protonix 40 mg intravenously, infusion of Zofran 4 mg intravenously, infusion of 5 mg intravenous Compazine, CBC, CMP, amylase and lipase levels. In addition there is a urinalysis. What is new today is the patient has a urinary tract infection that is moderate. The patient's amylase is within normal limits, the patient's lipase has improved dropping from approximately 540 down to 380. Patient has chronic mild elevated transaminase levels. She is aware of this. I reviewed the records from [facility]. This patient has had 2 CAT scans of the abdomen pelvis without contrast not showing any acute intra-abdominal or intrapelvic process. We will treat this patient's urinary tract infection with Rocephin 1 g intravenously here in the emergency department followed by outpatient treatment of Cipro 500 mg orally twice a day for 7 days prescription which will be remotely sent to her pharmacy. Patient is to contact her primary care provider on 02/04/2023 for further evaluation and management. Counseled pt/family regarding: lab results, diagnosis, need for follow-up Medical Desision Making - Independent Historian Additional History obtained from: Mother - Risk of complications The pt has a mod risk of morbidity or mortality based on: Need for prescription drug management - Departure Departure Disposition: Home Clinical Impression: Abdominal pain, Urinary tract infection Condition: Stable Critical Care Time: No Referrals: JULIO CÉSAR GIRALDO NP [Primary Care Provider] - Follow up/PCP as directed Additional Instructions: Drink plenty of fluids. Take your antibiotics as prescribed. Avoid fatty greasy spicy foods. Call your primary care provider's office on 02/04/2023 to see about moving your February 06 appointment to an earlier one. Use your Zofran or Phenergan antiemetic medication as prescribed Forms: Work/School Release Form Prescriptions: Ciprofloxacin [Cipro 500 MG] 500 mg PO BID #14 tablet
[2023-02-02] MEDS ORDERED: Sodium Chloride 0.9% 1000 ML 1,000 ML IV STA (23:11)
[2023-02-02] MEDS ORDERED: Hydromorphone 1 mg/ml Injection IV ONE (23:11)
[2023-02-02] MEDS ORDERED: PROTONIX 40 MG IV IV ONE ×2 (23:11→23:16)
[2023-02-02] MEDS ORDERED: Zofran 4 MG/2 ML VIAL IV ONE (23:11)
[2023-02-02] MEDS ORDERED: Compazine 10 MG/2 ML IV ONE (23:11)
[2023-02-02] MEDS ORDERED: Zofran 4 MG/2 ML VIAL ONE (23:15)
[2023-02-02] MEDS ORDERED: Hydromorphone 1 mg/ml Injection ONE (23:16)
[2023-02-02] MEDS ORDERED: Compazine 10 MG/2 ML ONE (23:16)
[2023-02-02] MEDS ORDERED: Sodium Chloride 0.9% 1000 ML 1,000 ML ONE (23:16)
[2023-02-02 23:33] LABS: Absolute Neutrophil Ct (ANC) 4.82 x10^3/uL (1.4-6.9); BASOPHIL % 0.4 % (0.0-0.4); Basophil (Absolute #) 0.03 x10^3/uL (0-0.4); Eosinophil % 1.8 % (0.00-5.0); Eosinophil (Absolute #) 0.14 x10^3/uL (0-0.5); Hematocrit 40.4 % (35-47); IMMATURE GRAN # 0.03 x10^3u/L (0.00-0.03); IMMATURE GRAN % 0.4 % (0.00-0.4); Lymphocyte (Absolute #) 2.59 x10^3/uL (1.0-4.6); Lymphocytes % 32.6 % (24.0-44.0); Mean Cell Volume 91.4 fL (78-100); Mean Corpuscular Hemoglobin 29.4 pg (26-32); Mean Corpuscular Hgb Concent. 32.2 g/dL (32-36); Mean Platelet Volume 10.5 fL (7.5-11.0); Monocyte (Absolute #) 0.34 x10^3/uL (0.0-1.3); Monocytes % 4.3 % (0.0-12.0); Neutrophil % 60.5 % (36.0-66.0); Platelet Count 296 x10^3/uL (150-450); Red Blood Count 4.42 x10^6/uL (4.1-5.4); Red Cell Distribution Width 13.5 % (11.5-14.0)
[2023-02-02 23:40] LABS: Appearance Clear (Clear); Bacteria Few /HPF (None Seen); Bilirubin Negative (Negative); Blood Negative (Negative); Epithelial Cells Rare /HPF (None Seen); Glucose, Urine Negative (Negative); Hyaline Casts NONE SEEN /LPF (0-2); Ketones Trace (Negative); Leukocyte Esterase Moderate (Negative); Nitrite Negative (Negative); Ph 6.5 (4.6-8.0); Protein,Urine Dip Negative (Negative); RBC 0-2 /HPF (0-5)
[2023-02-02 23:41] LABS: ALKALINE PHOSPHATASE 106 U/L (38-126); AMYLASE 67 U/L (30-110); ANION GAP 15.1 MEQ/L (5-15); BLOOD UREA NITROGEN 7 mg/dL (7-17); CHLORIDE 105 mmol/L (98-107); Calcium 8.8 mg/dL (8.4-10.2); Carbon Dioxide 23 mmol/L (22-30); Creatinine 1 0.64 mg/dL (0.52-1.04); EST GLOMERULAR FILTRATION RATE > 60.0 ML/MIN; Glucose 136 mg/dL (74-106); LIPASE 388 U/L (23-300); Potassium 3.4 mmol/L (3.5-5.1); SGOT/AST 93 U/L (14-36); SGPT/ALT 156 U/L (0-35); SODIUM 139 mmol/L (137-145); Total Protein 7.1 g/dL (6.3-8.2)
[2023-02-02 23:44] LABS: ADD URINE CULTURE? YES (NO)
[2023-02-02 23:45] LABS: HCG SERUM TEST NEGATIVE (NEGATIVE)
[2023-02-03] MEDS ORDERED: ROCEPHIN 1 Gm-D5w 50 ml Bag** 1 G/50 ML IVPB IV STA (00:05)
[2023-02-03] MEDS ORDERED: ROCEPHIN 1 Gm-D5w 50 ml Bag** 1 G/50 ML IVPB IV ONE (00:11)
[2023-02-03 00:12] VITALS: O2SAT 98
[2023-02-03 00:27] VITALS: BP 147/90; PULSE 81; RESP 17
== END 2023-02-03 00:44 | disposition home or self-care (01) ==
LOC: ED 22:33
DX: N39.0 Urinary tract infection, site not specified (principal); R10.12 Left upper quadrant pain; R11.2 Nausea with vomiting, unspecified; Z79.899 Other long term (current) drug therapy; Z28.310 Unvaccinated for COVID-19; Z86.16 Personal history of COVID-19
CPT/HCPCS: 36000; 36415; 80053; 81001; 82150; 83605; 83690; 84703; 85025; 87086; 96360; 96372; 96374; 96375; 99284; J0696; J1170; J2405

== ENCOUNTER 2023-02-04 21:36 | Emergency (ER) | payer BC ==
--- NOTE | 2023-02-04 21:45 | ERPHSYRPT ---
- History of Present Illness Time Seen by Provider: 02/04/23 21:45 Historian: patient Exam Limitations: no limitations Physician History: This is a morbidly obese 32-year-old white female patient has had a cholecystectomy in the past and has been seen in our emergency department 3 times and a fourth time in another emergency department within a week's period of time. She has had 2 prior CAT scans of the abdomen pelvis during this week timeframe. She was last seen by me on 01/25/2023. Her work-up showed a urinary tract infection but no other significant findings. Patient has an appointment to see her primary care provider as an outpatient on 02/05/2023. However, she states in the last 1 to 2 days she now has pain in her right flank and right lower quadrant but not in the left upper quadrant and left flank. She has also had vomiting and cannot hold anything down per her report. She arrives to the emergency department appearing in no distress and is smiling. She denies chest pain and she denies shortness of breath. Timing/Duration: day(s) (1 to 2 days) Activities at Onset: none Quality: aching Abdominal Pain Onset Location: RLQ, flank (Right flank) Pain Radiation: RLQ, flank (Right flank to right lower quadrant) Severity of Pain-Max: mild (To moderate) Severity of Pain-Current: mild (To moderate) Modifying Factors: Improves With: vomiting Associated Symptoms: nausea, vomiting, No chest pain, No diaphoresis, No fever/chills, No shortness of breath Previous symptoms: same symptoms as today, recently seen, recently treated Allergies/Adverse Reactions: nifedipine [From Procardia] Allergy (Mild, Verified 02/04/23 21:49) Home Medications: buPROPion HCL [Wellbutrin Xl] 300 mg PO DAILY 06/18/21 [History] Omeprazole 40 mg PO DAILY 02/03/22 [History] Azelastine Nasal [Astelin Nasal] 1 spray INTRANASAL DAILY 04/30/22 [History] Albuterol Sulfate [Albuterol Sulfate Hfa] 18 gm IH Q4HPRN PRN 09/02/22 [History] Albuterol/Ipratropium 3ml Neb* [DUONEB 0.5-3 MG/3 ml Neb] 3 ml IH Q4HPRN PRN 09/02/22 [History] Famotidine [Pepcid] 40 mg PO DAILY 09/02/22 [History] Fexofenadine HCl [Niru Allergy] 180 mg PO DAILY 09/02/22 [History] Fluticasone Propion/Salmeterol [Fluticasone-Salmeterol 250-50] 2 puffs IH BID 09/02/22 [History] Hydroxychloroquine Sulfate 200 mg PO DAILY 09/02/22 [History] Montelukast Sodium 10 mg [Singulair 10 MG] 10 mg PO DAILY 09/02/22 [History] modafiniL [Modafinil] 200 mg PO DAILY 09/02/22 [History] Hx Tetanus, Diphtheria Vaccination/Date Given: Yes Hx Influenza Vaccination/Date Given: No Hx Pneumococcal Vaccination/Date Given: No Travel Risk - International Travel Have you traveled outside of the country in past 3 weeks: No - Coronavirus Screening Are you exhibiting any of the following symptoms?: No Close contact with a COVID-19 positive Pt in past 14-21 Days: No - Vaccine Status Have you recieved a Covid-19 vaccination: No - Review of Systems Constitutional: No Symptoms Eyes: No Symptoms Ears, Nose, & Throat: No Symptoms Respiratory: No Symptoms Cardiac: No Symptoms Abdominal/Gastrointestinal: Abdominal Pain (Right flank to right lower quadrant), Nausea, Vomiting, Appetite Changes, No Diarrhea, No Constipation Genitourinary Symptoms: No Symptoms Musculoskeletal: No Symptoms Skin: No Symptoms Neurological: No Symptoms Psychological: No Symptoms Endocrine: No Symptoms Hematologic/Lymphatic: No Symptoms Immunological/Allergic: No Symptoms All Other Systems: Reviewed and Negative - Past Medical History Pertinent Past Medical History: Yes Neurological History: No Pertinent History ENT History: No Pertinent History Cardiac History: Arrhythmia Respiratory History: Other Endocrine Medical History: Other Musculoskeletal History: Rheumatoid Arthritis GI Medical History: GERD, Gallbladder Disease History: Other Psycho-Social History: Anxiety, Attention Deficit Disorder, Depression Female Reproductive Disorders: No Pertinent History Other Medical History: HX OF COVID IN JUNE, FATTY LIVER, PER PATIENT HAS AN "EXTRA HEART BEAT" - Past Surgical History Past Surgical History: Yes Neuro Surgical History: No Pertinent History Cardiac: No Pertinent History Respiratory: No Pertinent History Gastrointestinal: Cholecystectomy Genitourinary: No Pertinent History Musculoskeletal: No Pertinent History Female Surgical History: Section Other Surgical History: - Social History Smoking Status: Never smoker How long have you smoked: 1 YEAR Exposure to second hand smoke: No Drug Use: none Patient Lives Alone: No - Nursing Vital Signs Nursing Vital Signs: Initial Vital Signs Temperature 97.3 F 02/04/23 21:45 Pulse Rate 83 02/04/23 21:45 Respiratory Rate 17 02/04/23 21:45 Blood Pressure 147/97 02/04/23 21:45 O2 Sat by Pulse Oximetry 97 02/04/23 21:45 Pain Scale Pain Intensity 3 - Physical Exam General Appearance: no apparent distress, alert, anxiety, obese Eye Exam: PERRL/EOMI, eyes nml inspection Ears, Nose, Throat Exam: normal ENT inspection, moist mucous membranes Neck Exam: normal inspection, non-tender, supple, full range of motion Respiratory Exam: normal breath sounds, lungs clear, airway intact, No chest tenderness, No respiratory distress Cardiovascular Exam: regular rate/rhythm, normal heart sounds, normal peripheral pulses Gastrointestinal/Abdomen Exam: soft, normal bowel sounds, tenderness (Right flank and right lower quadrant to palpation), guarding (Right lower quadrant, mild to palpation), No rebound Pelvic Exam: not done Rectal Exam: not done Back Exam: normal inspection, normal range of motion, No CVA tenderness, No vertebral tenderness Extremity Exam: normal inspection, normal range of motion, pelvis stable Neurologic Exam: alert, oriented x 3, cooperative, internet marketing consultant II-XII nml as tested, normal mood/affect, nml cerebellar function, nml station & gait, sensation nml Skin Exam: normal color, warm, dry Lymphatic Exam: No adenopathy SpO2 Interpretation: normal O2 Delivery: Room Air - Course Nursing assessment & vital signs reviewed: Yes Ordered Tests: Active Orders 24 hr Category Date Time Status IV Insertion STAT Care 02/04/23 21:47 Active ABDOMEN AND PELVIS W/0 CONTRAS [CT] Stat Exams 02/04/23 21:47 Taken AMYLASE Stat Lab 02/04/23 21:53 Completed CBC W DIFF Stat Lab 02/04/23 21:53 Completed CMP Stat Lab 02/04/23 21:53 Completed LIPASE Stat Lab 02/04/23 21:53 Completed Lactic Acid Stat Lab 02/04/23 22:56 Completed UA W/RFX UR CULTURE Stat Lab 02/04/23 21:45 Completed Medication Summary Discontinued Medications Generic Name Dose Route Start Last Admin Trade Name Silvia PRN Reason Stop Dose Admin Hydromorphone HCl 1 mg 02/04/23 21:47 02/04/23 22:05 Hydromorphone 1 Mg/1ml Inj IV 02/04/23 21:48 1 mg STAT ONE Administration Hydromorphone HCl Confirm 02/04/23 21:57 Hydromorphone 1 Mg/1ml Inj Administered 02/04/23 21:58 Dose 1 mg .ROUTE .STK-MED ONE Sodium Chloride 1,000 mls @ 999 mls/hr 02/04/23 21:47 02/04/23 23:23 Sodium Chloride 0.9% 1000 Ml IV 02/04/23 22:47 Infused .Q1H1M STA Infusion Sodium Chloride Confirm 02/04/23 21:58 Sodium Chloride 0.9% 1000 Ml Administered 02/04/23 21:59 Dose 1,000 mls @ ud .ROUTE .STK-MED ONE Ceftriaxone Sodium/Dextrose 1 g in 50 mls @ 100 mls/hr 02/04/23 22:39 02/04/23 23:23 Rocephin 1 Gm-D5w 50 Ml Bag IV 02/04/23 23:08 Infused STAT STA Infusion Ceftriaxone Sodium/Dextrose Confirm 02/04/23 22:42 Rocephin 1 Gm-D5w 50 Ml Bag Administered 02/04/23 22:43 Dose 1 g in 50 mls @ ud IV .STK-MED ONE Pantoprazole Sodium 40 mg 02/04/23 21:47 02/04/23 22:04 Pantoprazole 40 Mg Vial IV 02/04/23 21:48 40 mg STAT ONE Administration Pantoprazole Sodium Confirm 02/04/23 21:57 Pantoprazole 40 Mg Vial Administered 02/04/23 21:58 Dose 40 mg IV .STK-MED ONE Prochlorperazine Edisylate 5 mg 02/04/23 21:47 02/04/23 22:02 Prochlorperazine Edisylate 10 Mg/2 Ml Vial IV 02/04/23 21:48 5 mg STAT ONE Administration Prochlorperazine Edisylate Confirm 02/04/23 21:58 Prochlorperazine Edisylate 10 Mg/2 Ml Vial Administered 02/04/23 21:59 Dose 10 mg .ROUTE .STK-MED ONE Lab/Rad Data: Laboratory Result Diagrams 02/04/23 21:53 02/04/23 21:53 Laboratory Results 02/04/23 02/04/23 02/04/23 Range/Units 22:56 21:53 21:53 WBC 8.6 (4.0-10.5) x10^3/uL RBC 4.56 (4.1-5.4) x10^6/uL Hgb 13.5 (12.0-16.0) g/dL Hct 41.4 (35-47) % MCV 90.8 (78-100) fL MCH 29.6 (26-32) pg MCHC 32.6 (32-36) g/dL RDW 13.4 (11.5-14.0) % Plt Count 292 (150-450) x10^3/uL MPV 10.3 (7.5-11.0) fL Gran % 61.1 (36.0-66.0) % Immature Gran % (Auto) 0.4 (0.00-0.4) % Nucleat RBC Rel Count 0.0 (0.00-0.1) % Eos # (Auto) 0.21 (0-0.5) x10^3/uL Immature Gran # (Auto) 0.03 (0.00-0.03) x10^3u/L Absolute Lymphs (auto) 2.67 (1.0-4.6) x10^3/uL Absolute Monos (auto) 0.38 (0.0-1.3) x10^3/uL Absolute Nucleated RBC 0.00 (0.00-0.01) x10^3u/L Lymphocytes % 31.2 (24.0-44.0) % Monocytes % 4.4 (0.0-12.0) % Eosinophils % 2.5 (0.00-5.0) % Basophils % 0.4 (0.0-0.4) % Absolute Granulocytes 5.24 (1.4-6.9) x10^3/uL Basophils # 0.03 (0-0.4) x10^3/uL Sodium 140 (137-145) mmol/L Potassium 3.7 (3.5-5.1) mmol/L Chloride 106 (98-107) mmol/L Carbon Dioxide 23 (22-30) mmol/L Anion Gap 15.3 H (5-15) MEQ/L BUN 7 (7-17) mg/dL Creatinine 0.62 (0.52-1.04) mg/dL Estimated GFR > 60.0 ML/MIN Glucose 110 H (74-106) mg/dL Lactic Acid 1.8 (0.4-2.0) Calcium 9.0 (8.4-10.2) mg/dL Total Bilirubin 0.30 (0.2-1.3) mg/dL AST 68 H (14-36) U/L ALT 121 H (0-35) U/L Alkaline Phosphatase 101 (38-126) U/L Serum Total Protein 7.3 (6.3-8.2) g/dL Albumin 4.1 (3.5-5.0) g/dL Amylase 55 (30-110) U/L Lipase 40 (23-300) U/L Urine Color (Yellow) Urine Appearance (Clear) Urine pH (4.6-8.0) Ur Specific Roberts (1.005-1.030) Urine Protein (Negative) Urine Glucose (UA) (Negative) mg/dL Urine Ketones (Negative) Urine Blood (Negative) Urine Nitrite (Negative) Urine Bilirubin (Negative) Urine Urobilinogen (0.2) mg/dL Ur Leukocyte Esterase (Negative) U Hyaline Cast (Auto) (0-2) /LPF Urine Microscopic RBC (0-5) /HPF Urine Microscopic WBC (0-5) /HPF Ur Epithelial Cells (None Seen) /HPF Urine Bacteria (None Seen) /HPF Urine Culture Reflexed (NO) 02/04/23 Range/Units 21:45 WBC (4.0-10.5) x10^3/uL RBC (4.1-5.4) x10^6/uL Hgb (12.0-16.0) g/dL Hct (35-47) % MCV (78-100) fL MCH (26-32) pg MCHC (32-36) g/dL RDW (11.5-14.0) % Plt Count (150-450) x10^3/uL MPV (7.5-11.0) fL Gran % (36.0-66.0) % Immature Gran % (Auto) (0.00-0.4) % Nucleat RBC Rel Count (0.00-0.1) % Eos # (Auto) (0-0.5) x10^3/uL Immature Gran # (Auto) (0.00-0.03) x10^3u/L Absolute Lymphs (auto) (1.0-4.6) x10^3/uL Absolute Monos (auto) (0.0-1.3) x10^3/uL Absolute Nucleated RBC (0.00-0.01) x10^3u/L Lymphocytes % (24.0-44.0) % Monocytes % (0.0-12.0) % Eosinophils % (0.00-5.0) % Basophils % (0.0-0.4) % Absolute Granulocytes (1.4-6.9) x10^3/uL Basophils # (0-0.4) x10^3/uL Sodium (137-145) mmol/L Potassium (3.5-5.1) mmol/L Chloride (98-107) mmol/L Carbon Dioxide (22-30) mmol/L Anion Gap (5-15) MEQ/L BUN (7-17) mg/dL Creatinine (0.52-1.04) mg/dL Estimated GFR ML/MIN Glucose (74-106) mg/dL Lactic Acid (0.4-2.0) Calcium (8.4-10.2) mg/dL Total Bilirubin (0.2-1.3) mg/dL AST (14-36) U/L ALT (0-35) U/L Alkaline Phosphatase (38-126) U/L Serum Total Protein (6.3-8.2) g/dL Albumin (3.5-5.0) g/dL Amylase (30-110) U/L Lipase (23-300) U/L Urine Color Yellow (Yellow) Urine Appearance Clear (Clear) Urine pH 6.5 (4.6-8.0) Ur Specific Roberts 1.010 (1.005-1.030) Urine Protein Negative (Negative) Urine Glucose (UA) Negative (Negative) mg/dL Urine Ketones Negative (Negative) Urine Blood Negative (Negative) Urine Nitrite Negative (Negative) Urine Bilirubin Negative (Negative) Urine Urobilinogen 0.2 (0.2) mg/dL Ur Leukocyte Esterase Moderate A (Negative) U Hyaline Cast (Auto) NONE SEEN (0-2) /LPF Urine Microscopic RBC 0-2 (0-5) /HPF Urine Microscopic WBC 6-10 A (0-5) /HPF Ur Epithelial Cells None Seen (None Seen) /HPF Urine Bacteria None Seen (None Seen) /HPF Urine Culture Reflexed NO (NO) - Progress Progress: improved, re-examined Progress Note: 02/04/23 22:04 This patient's medical issues 1 of moderate complexity. Level of complexity in the work-up performed is based on review of the patient's past medical history, review the patient's drug allergy list, reviewed the patient's medication list, history of present illness and physical findings examination. The work-up in this patient includes placement of intravenous line, infusion of 1 L normal saline solution, infusion of 5 mg Compazine intravenously, infusion of Dilaudid 1 mg intravenously, infusion of Protonix 40 mg intravenously, CT scan of the abdomen pelvis, urinalysis, CBC, CMP, amylase and lipase as well as lactic acid level. This patient was told on 01/28/2023 that she had a mildly enlarged appendix without inflammation. She had a CT scan on 01/31/2003 which did not show any abnormality of the appendix. This was performed at an outside facility. She did not complain on those dates of right side abdominal pain but she does today. Her prior pain syndrome was in the left upper quadrant and left flank. We will review the results of the studies today. If everything is negative for any acute, emergent medical issue, patient will be referred to her outpatient nurse practitioner. She has an appointment to see this nurse practitioner on 02/05/2023. 02/05/23 00:28 CT scan of the abdomen pelvis without contrast was interpreted by the radiologist and I reviewed the impression. There are no acute intra-abdominal or intra-pelvic abnormality Medical Desision Making - Diagnostic Testing Diagnostic test were ordered, analyzed, and reviewed by me: Yes Radiological Interpretation: Reviewed by me, Teleradiologist Report - Risk of complications Low Risk: Low risk of morbidity from additional dx testing or treatment - Departure Departure Disposition: Home Clinical Impression: UTI (urinary tract infection), Recurrent abdominal pain Condition: Stable Critical Care Time: No Referrals: JULIO CÉSAR GIRALDO NP [Primary Care Provider] - Follow up/PCP as directed Additional Instructions: Continue your antibiotics as prescribed. Keep your appointment with your outpatient medical provider that is scheduled for later today.
[2023-02-04] MEDS ORDERED: Compazine 10 MG/2 ML IV ONE (21:47)
[2023-02-04] MEDS ORDERED: PROTONIX 40 MG IV IV ONE ×2 (21:47→21:57)
[2023-02-04] MEDS ORDERED: Sodium Chloride 0.9% 1000 ML 1,000 ML IV STA (21:47)
[2023-02-04] MEDS ORDERED: Hydromorphone 1 mg/ml Injection IV ONE (21:47)
[2023-02-04 21:56] VITALS: TEMP 97.3
[2023-02-04 21:57] LABS: Absolute Neutrophil Ct (ANC) 5.24 x10^3/uL (1.4-6.9); BASOPHIL % 0.4 % (0.0-0.4); Basophil (Absolute #) 0.03 x10^3/uL (0-0.4); Eosinophil % 2.5 % (0.00-5.0); Eosinophil (Absolute #) 0.21 x10^3/uL (0-0.5); Hematocrit 41.4 % (35-47); Hemoglobin 13.5 g/dL (12.0-16.0); IMMATURE GRAN # 0.03 x10^3u/L (0.00-0.03); IMMATURE GRAN % 0.4 % (0.00-0.4); Lymphocyte (Absolute #) 2.67 x10^3/uL (1.0-4.6); Lymphocytes % 31.2 % (24.0-44.0); Mean Cell Volume 90.8 fL (78-100); Mean Corpuscular Hemoglobin 29.6 pg (26-32); Mean Corpuscular Hgb Concent. 32.6 g/dL (32-36); Mean Platelet Volume 10.3 fL (7.5-11.0); Monocyte (Absolute #) 0.38 x10^3/uL (0.0-1.3); Monocytes % 4.4 % (0.0-12.0); Neutrophil % 61.1 % (36.0-66.0); Platelet Count 292 x10^3/uL (150-450); Red Blood Count 4.56 x10^6/uL (4.1-5.4); Red Cell Distribution Width 13.4 % (11.5-14.0); White Blood Count 8.6 x10^3/uL (4.0-10.5)
[2023-02-04] MEDS ORDERED: Hydromorphone 1 mg/ml Injection ONE (21:57)
[2023-02-04] MEDS ORDERED: Compazine 10 MG/2 ML ONE (21:58)
[2023-02-04] MEDS ORDERED: Sodium Chloride 0.9% 1000 ML 1,000 ML ONE (21:58)
[2023-02-04 22:04] LABS: Appearance Clear (Clear); Bacteria None Seen /HPF (None Seen); Bilirubin Negative (Negative); Blood Negative (Negative); Epithelial Cells None Seen /HPF (None Seen); Glucose, Urine Negative (Negative); Hyaline Casts NONE SEEN /LPF (0-2); Ketones Negative (Negative); Leukocyte Esterase Moderate (Negative); Nitrite Negative (Negative); Ph 6.5 (4.6-8.0); Protein,Urine Dip Negative (Negative); RBC 0-2 /HPF (0-5); Urobilinogen 0.2 mg/dL (0.2)
[2023-02-04 22:06] LABS: ADD URINE CULTURE? NO (NO)
[2023-02-04 22:14] LABS: ALBUMIN 4.1 g/dL (3.5-5.0); ALKALINE PHOSPHATASE 101 U/L (38-126); AMYLASE 55 U/L (30-110); ANION GAP 15.3 MEQ/L (5-15); BLOOD UREA NITROGEN 7 mg/dL (7-17); CHLORIDE 106 mmol/L (98-107); Carbon Dioxide 23 mmol/L (22-30); Creatinine 1 0.62 mg/dL (0.52-1.04); EST GLOMERULAR FILTRATION RATE > 60.0 ML/MIN; Glucose 110 mg/dL (74-106); LIPASE 40 U/L (23-300); Potassium 3.7 mmol/L (3.5-5.1); SGOT/AST 68 U/L (14-36); SGPT/ALT 121 U/L (0-35); SODIUM 140 mmol/L (137-145); Total Protein 7.3 g/dL (6.3-8.2)
[2023-02-04] MEDS ORDERED: ROCEPHIN 1 Gm-D5w 50 ml Bag** 1 G/50 ML IVPB IV STA (22:39)
[2023-02-04] MEDS ORDERED: ROCEPHIN 1 Gm-D5w 50 ml Bag** 1 G/50 ML IVPB IV ONE (22:42)
[2023-02-05 00:31] VITALS: BP 137/97; PULSE 67; RESP 16; O2SAT 97
--- NOTE | 2023-02-05 00:31 | XRAY ---
CLINICAL HISTORY:Abdominal painrecurrent COMPARISON:01/28/2023. TECHNIQUES:CT scan of the abdomen and pelvis was performed without IV contrast. Coronal and sagittal reconstructive images were also obtained. FINDINGS: Abdomen: The liver is of average size. No focal or diffuse parenchymal abnormality. The portal vein, intrahepatic biliary radicals, and bile ducts are normal. The spleen, pancreas, and adrenal glands are unremarkable. The kidneys are unremarkable. They are normal in size and shape. No calculi or hydronephrosis. The gallbladder is surgically removed. The ascending colon, the transverse colon, and the descending colon visualized small bowel loops are unremarkable. The appendix appears normal. There is no evidence of significant enlargement of the mesenteric or retroperitoneal lymph nodes. Pelvis: The urinary bladder is unremarkable. The rectosigmoid colon is unremarkable. The uterus shows IUCD in situ, otherwise appears unremarkable. No adnexal lesions were noted. No evidence of pelvic lymphadenopathy. No definite bony abnormalities could be depicted. IMPRESSION: No acute abnormality was noted in the CT abdomen and pelvis No significant interval changes seen since the previous CT study dated 01/28/23. Electronically Signed by: Eden Sykes MD. (02/04/2023 22:58:00 CLINICAL TRANSFORMATION SPECIALIST)
== END 2023-02-05 00:33 | disposition home or self-care (01) ==
LOC: ED 21:36
DX: N39.0 Urinary tract infection, site not specified (principal); R10.31 Right lower quadrant pain; R11.10 Vomiting, unspecified; Z79.899 Other long term (current) drug therapy; Z28.310 Unvaccinated for COVID-19; Z86.16 Personal history of COVID-19
CPT/HCPCS: 36000; 36415; 74176; 80053; 81001; 82150; 83605; 83690; 85025; 96365; 96374; 96375; 99284; J0696; J1170

== ENCOUNTER 2023-03-04 11:11 | Day surgery (SDC) | payer BC ==
--- NOTE | 2023-03-04 09:28 | HP ---
DATE OF SURGERY: 03/04/2023 HISTORY OF PRESENT ILLNESS: The patient is a 32-year-old with some right upper quadrant pain, nausea and melena. She had the symptoms for the past month or so requiring a CT scan. She had some loose stools and change in bowel habits as well. PAST MEDICAL HISTORY: Sinus problems and allergic rhinitis in the past. Depression. Reflux. History of bronchitis in the past. PAST SURGICAL HISTORY: Cholecystectomy. section. MEDICATIONS: Bupropion, modafinil, Niru tablets, omeprazole. ALLERGIES: PROCARDIA. FAMILY HISTORY: Diabetes. Her mother did have Crohn's and polyps but no colon cancer. SOCIAL HISTORY: No smoking or alcohol abuse. REVIEW OF SYSTEMS: Fourteen systems reviewed. No chest pain or palpitations. Other systems negative or noncontributory as above and per preadmission questionnaire. PHYSICAL EXAMINATION: Height 5'6". BMI 36.58. GENERAL: No acute distress. HEENT: Sclerae nonicteric. EOMI. Oral mucous membranes moist. NECK: No JVD. CHEST: Equal excursion, nonlabored breathing. CVS: Regular rate and rhythm. ABDOMEN: Soft. EXTREMITIES: No significant edema. NEURO: Alert, oriented, moving extremities symmetrically. RECTAL: Deferred timed to endoscopy exam. PSYCH: Appropriate mood and affect. SKIN: Dry. IMPRESSION: Nausea, change in bowel habits and abdominal pain and question of melena. Family history of Crohn's. The patient is in need of EGD and colonoscopy to evaluate for gastritis, peptic ulcer disease, colitis, inflammatory bowel disease or other etiology. She was shown the risk sheet, explained the procedure in detail including but not limited to bleeding or infection, risk of bowel injury or perforation, risk of missed or nondiagnosis or incomplete exam possibly requiring barium enema, barium swallow, other studies or procedures. General risk of anesthesia or bowel prep, possible inability to diagnose the etiology of her symptoms possibly requiring further referrals or studies. Otherwise the patient is to continue medications for her depression, reflux and allergies. Will plan for EGD and colonoscopy under MAC anesthesia as an outpatient.
[2023-03-04 11:30] LABS: HCG URINE TEST NEGATIVE (NEGATIVE)
[2023-03-04] MEDS ORDERED: Lactated Ringers 1,000 ML IV SCH (11:30)
[2023-03-04 11:49] VITALS: RESP 18
[2023-03-04] MEDS ORDERED: Lactated Ringers 1,000 ML IV ONE (11:52)
[2023-03-04] MEDS ORDERED: DIPRIVAN 200 MG/20 ML IV ONE ×2 (13:17→13:33)
[2023-03-04] MEDS ORDERED: Xylocaine-Mpf 2% 5 Ml Vial ONE (13:17)
[2023-03-04] MEDS ORDERED: Versed 2 MG/2 ML Injection ONE (13:17)
[2023-03-04 14:24] VITALS: TEMP 98.5
[2023-03-04 14:32] VITALS: BP 148/89; PULSE 67; O2SAT 97
--- NOTE | 2023-03-05 08:19 | OP ---
SURGERY DATE/TIME: 03/04/2023 1320 PREOPERATIVE DIAGNOSES: 1) History of some nausea. 2) History of some change in bowel habits. 3) Question of melena. 4) History of some vague abdominal pain of unclear etiology, need for upper and lower endoscopy. POSTOPERATIVE DIAGNOSES: 1) Minimal to mild gastritis. 2) Short segment of salmon pink mucosa distal esophagus. 3) Biopsy for Palacios's. 4) Small early polyps ascending colon on ascending side of ileocecal valve. 5) Small polyp rectum. 6) Otherwise fairly normal appearing mucosa, fair prep. PROCEDURES: 1) EGD with cold biopsy of small bowel to evaluate for celiac sprue. 2) Cold biopsy of antrum to evaluate for Helicobacter pylori. 3) Cold biopsy distal esophagus to evaluate for early Palacios's versus inflammation. 4) Colonoscopy to terminal ileum. 5) Retrograde ileoscopy. 6) Random ileum biopsy to evaluate for microscopic ileitis. 7) Random cold biopsy to evaluate for microscopic colitis. 8) Hot biopsy polypectomy small polyp in the ascending colon. 9) Hot biopsy polypectomy small rectal polyp. SURGEON: Dr. Addy Gifford. ANESTHESIA: MAC. ESTIMATED BLOOD LOSS: Minimal. INDICATIONS: As noted above. Risks and benefits explained in detail and not limited to and consent obtained. DESCRIPTION OF PROCEDURE AND FINDINGS: The patient is taken to the operating room. MAC anesthesia introduced. After official time out and no disagreement with planned procedure, bite block positioned. Video gastroscope easily passed down the esophagus to the patent pylorus to the junction of the third and fourth portion of the duodenum. Third, second and first portions of duodenum grossly unremarkable. Given her symptom complaints and the vague abdominal pain, nausea, change in bowel habits, cold biopsy is taken in the small bowel to evaluate for celiac sprue. Good hemostasis noted. There was no signs of any ulcer. The scope is pulled back into the stomach. She had some gastric erythema and possibly some minimal to mild early gastritis. No evidence of any ulcers or masses. Cold biopsy is taken to evaluate for Helicobacter pylori. Good hemostasis noted. On retroflex the gastroesophageal junction is snug against the scope. No signs of any hiatal hernia. The scope is pulled back. The gastroesophageal junction is about 40 cm. There was a little 2 to 3 mm short segment of salmon pink mucosa distal esophagus. Cold biopsy is taken to evaluate for inflammation versus early Palacois's versus normal variation of gastroesophageal junction. Good hemostasis noted. The remainder of the esophagus is grossly unremarkable. The scope is withdrawn. Attention is then turned to colonoscopy. Digital rectal exam did not reveal any rectal masses. Video colonoscope inserted and passed up through the tortuous descending, transverse, ascending colon around to the cecum up into the ileum. The ileum was grossly unremarkable. Given her symptom complaints, random ileum biopsies were made to evaluate for microscopic ileitis. Good hemostasis noted. The scope is carefully withdrawn. Random cold biopsies in the colon were evaluated for microscopic colitis. Good hemostasis noted. There was a small early polyp versus inflammatory polyp versus early polyp in the ascending colon side of the ileocecal valve removed with hot biopsy forceps. Good hemostasis noted. The scope is slowly and carefully withdrawn over the next nine minutes. No signs of any large polyps, masses or obstructing lesions. Prep overall was fair. She had some liquidy, semisolid stool just slightly limiting the exam for small lesions. Otherwise small polyp was noted in the rectum removed with hot biopsy forceps. Good hemostasis noted. The patient tolerated the procedure well. Findings discussed with the family in the waiting area. I will see her back in the office in a couple weeks.
== END 2023-03-04 14:35 | disposition home or self-care (01) ==
LOC: SDC 11:11
PROVIDERS: ATTEND Surgery
DX: K29.70 Gastritis, unspecified, without bleeding (principal); R19.4 Change in bowel habit; R11.0 Nausea; R10.9 Unspecified abdominal pain; D12.2 Benign neoplasm of ascending colon; K62.1 Rectal polyp
CPT/HCPCS: 81025; J2250; J2704

== ENCOUNTER 2023-03-04 21:36 | Emergency (ER) | payer BC ==
[2012-11-10 13:57] VITALS: PULSE 78; RESP 20; TEMP 98.6
== END 2023-03-04 22:50 | disposition left against medical advice (07) ==
LOC: ED 21:36
DX: Z53.21 Procedure and treatment not carried out due to patient leaving prior to being seen by health care provider (principal)

== ENCOUNTER 2023-03-17 06:56 | Emergency (ER) | payer BC ==
[2023-03-17] MEDS ORDERED: XYLOCAINE 1% HCL 20 ML MDV IJ ONE (06:57)
[2023-03-17] MEDS ORDERED: TORAdol 30 mg Injection IM ONE (07:30)
[2023-03-17 07:34] VITALS: TEMP 98.9
[2023-03-17] MEDS ORDERED: TORAdol 30 mg Injection ONE (07:37)
--- NOTE | 2023-03-17 07:37 | ERPHSYRPT ---
- History of Present Illness Time Seen by Provider: 03/17/23 07:31 Source: patient Exam Limitations: no limitations Physician History: pt is 32 year old female with no prior hx migraine and no hx head trauma or blood thinners. Has Fibromyalgia, but not usually with headache pain. No hx antiphospholipid or other blood clotting disorders known. No visual symptoms. She is being treated for bilateral ear infections for 1 week and has had congestion and mild ST, no cough opr SOBreath. Chest clear without wheezes or stridor. Ht reg without M. No rash. No meningismis. TM with erythema bilaterally and fluids no perf seen - pt reported blood when removed her work ear plugs, but no lesions seen now in bilateral canals Fundi benign , visual palomino intact, EOM full PERRL Normal Neuro exam without deficits. No meningismus. Bilateral temporal arteries nontender to palpation. Discussed risks/benefits including radiation from CT, also CMP and CBC, Sed rate, Covid/RSV/Flu swabs, and Tx Toradol and pt wishes to proceed, and has the decisional capacity to make these choices. ORdered above, results discussed with pt. Timing/Duration: today Quality: sharpness, throbbing Head Pain Location: global Severity of Pain-Max: moderate Severity of Pain-Current: moderate Recent Head Trauma: no recent headache/trauma Associated Symptoms: nausea/vomiting, nasal congestion, nasal drainage Previous symptoms: no prior history, recently seen, recently treated Allergies/Adverse Reactions: nifedipine [From Procardia] Allergy (Mild, Verified 03/17/23 07:18) Home Medications: Omeprazole 40 mg PO DAILY 02/03/22 [History] Fexofenadine HCl [Niru Allergy] 180 mg PO DAILY 09/02/22 [History] modafiniL [Modafinil] 200 mg PO BID 09/02/22 [History] Duloxetine HCl [Cymbalta] 60 mg PO DAILY 02/25/23 [History] Cefdinir 1 cap PO BID 03/17/23 [History] Hx Tetanus, Diphtheria Vaccination/Date Given: Yes Hx Influenza Vaccination/Date Given: No Hx Pneumococcal Vaccination/Date Given: No Travel Risk - Vaccine Status Have you recieved a Covid-19 vaccination: No - Review of Systems Constitutional: Night Sweats, No Fever, No Chills Eyes: No Symptoms Ears, Nose, & Throat: Nose Congestion, Throat Pain Respiratory: No Cough, No Dyspnea Cardiac: No Chest Pain, No Edema, No Syncope Abdominal/Gastrointestinal: Nausea, Vomiting, No Abdominal Pain, No Diarrhea Genitourinary Symptoms: No Dysuria Musculoskeletal: No Back Pain, No Neck Pain Skin: No Symptoms, No Rash Neurological: Headache, No Dizziness, No Focal Weakness, No Sensory Changes Psychological: No Symptoms Endocrine: No Symptoms Hematologic/Lymphatic: No Symptoms Immunological/Allergic: No Symptoms All Other Systems: Reviewed and Negative - Past Medical History Pertinent Past Medical History: Yes Neurological History: No Pertinent History ENT History: No Pertinent History Cardiac History: Arrhythmia Respiratory History: Other Endocrine Medical History: Other Musculoskeletal History: Rheumatoid Arthritis GI Medical History: GERD, Gallbladder Disease History: Other Psycho-Social History: Anxiety, Attention Deficit Disorder, Depression Female Reproductive Disorders: No Pertinent History Other Medical History: HX OF COVID IN JUNE 2021, FATTY LIVER, PER PATIENT HAS AN "EXTRA HEART BEAT" - Past Surgical History Past Surgical History: Yes Neuro Surgical History: No Pertinent History Cardiac: No Pertinent History Respiratory: No Pertinent History Gastrointestinal: Cholecystectomy Genitourinary: No Pertinent History Musculoskeletal: No Pertinent History Female Surgical History: Section Other Surgical History: - Social History Smoking Status: Never smoker How long have you smoked: 1 YEAR Exposure to second hand smoke: No Drug Use: none Patient Lives Alone: No - Female History Hx Now: No (unkown) - Nursing Vital Signs Nursing Vital Signs: Initial Vital Signs Temperature 98.9 F 03/17/23 06:57 Pulse Rate 89 03/17/23 06:57 Respiratory Rate 22 03/17/23 06:57 Blood Pressure 132/98 03/17/23 06:57 O2 Sat by Pulse Oximetry 99 03/17/23 06:57 Pain Scale Pain Intensity 5 - Physical Exam General Appearance: no apparent distress Eye Exam: PERRL/EOMI Ears, Nose, Throat Exam: moist mucous membranes, TM abnormal (R), TM abnormal (L ), pharyngeal erythema Neck Exam: normal inspection, non-tender, supple, full range of motion, No meningismus Respiratory Exam: normal breath sounds, lungs clear, airway intact, No accessory muscle use, No crackles/rales, No rhonchi, No wheezing, No stridor Cardiovascular Exam: regular rate/rhythm, normal heart sounds, normal peripheral pulses Gastrointestinal/Abdominal Exam: soft, No tenderness, No distention Back Exam: normal inspection, normal range of motion Extremity Exam: normal inspection, normal range of motion Mental Status Exam: alert, oriented x 3, cooperative integrity manager Exam: normal speech, PERRL, No facial droop Coordination/Gait Exam: normal finger to nose, normal gait, normal cerebellar function Motor/Sensory Exam: no motor deficit, no sensory deficit, no pronator drift DTR Exam: bicep (R): 2+, bicep (L): 2+, tricep (R): 2+, tricep (L): 2+, knee (R): 2+, knee (L): 2+, ankle (R): 2+, ankle (L): 2+ Skin Exam: normal color, warm, dry, No rash SpO2 Interpretation: normal SpO2: 99 O2 Delivery: Room Air - Course Nursing assessment & vital signs reviewed: Yes - CT Exams Head CT Interpretation: Tele-radiologist Report, No/Intracranial Hemorrhag Ordered Tests: Active Orders 24 hr Category Date Time Status HEAD WITHOUT CONTRAST [CT] Stat Exams 03/17/23 07:27 Completed CBC W DIFF Stat Lab 03/17/23 07:45 Completed CMP Stat Lab 03/17/23 07:45 Completed SED RATE [Erythrocyte Sedimentation Rate] Stat Lab 03/17/23 07:45 Completed Medication Summary Discontinued Medications Generic Name Dose Route Start Last Admin Trade Name Silvia PRN Reason Stop Dose Admin Ceftriaxone Sodium 1,000 mg 03/17/23 09:09 Ceftriaxone Sodium 1000 Mg Inj Vial IM 03/17/23 09:10 STAT ONE Ceftriaxone Sodium Confirm 03/17/23 09:17 Ceftriaxone Sodium 1000 Mg Inj Vial Administered 03/17/23 09:18 Dose 1,000 mg .ROUTE .STK-MED ONE Ketorolac Tromethamine 60 mg 03/17/23 07:30 03/17/23 07:46 Ketorolac Tromethamine 30 Mg/Ml Inj IM 03/17/23 07:31 60 mg STAT ONE Administration Ketorolac Tromethamine Confirm 03/17/23 07:37 Ketorolac Tromethamine 30 Mg/Ml Inj Administered 03/17/23 07:38 Dose 60 mg .ROUTE .STK-MED ONE Lab/Rad Data: Laboratory Result Diagrams 03/17/23 07:45 03/17/23 07:45 Laboratory Results 03/17/23 03/17/23 03/17/23 Range/Units 08:08 08:08 07:45 WBC (4.0-10.5) x10^3/uL RBC (4.1-5.4) x10^6/uL Hgb (12.0-16.0) g/dL Hct (35-47) % MCV (78-100) fL MCH (26-32) pg MCHC (32-36) g/dL RDW (11.5-14.0) % Plt Count (150-450) x10^3/uL MPV (7.5-11.0) fL Gran % (36.0-66.0) % Immature Gran % (Auto) (0.00-0.4) % Nucleat RBC Rel Count (0.00-0.1) % Eos # (Auto) (0-0.5) x10^3/uL Immature Gran # (Auto) (0.00-0.03) x10^3u/L Absolute Lymphs (auto) (1.0-4.6) x10^3/uL Absolute Monos (auto) (0.0-1.3) x10^3/uL Absolute Nucleated RBC (0.00-0.01) x10^3u/L Lymphocytes % (24.0-44.0) % Monocytes % (0.0-12.0) % Eosinophils % (0.00-5.0) % Basophils % (0.0-0.4) % Absolute Granulocytes (1.4-6.9) x10^3/uL Basophils # (0-0.4) x10^3/uL ESR 34 H (0-20) mm/hr Sodium (137-145) mmol/L Potassium (3.5-5.1) mmol/L Chloride (98-107) mmol/L Carbon Dioxide (22-30) mmol/L Anion Gap (5-15) MEQ/L BUN (7-17) mg/dL Creatinine (0.52-1.04) mg/dL Estimated GFR ML/MIN Glucose (74-106) mg/dL Calcium (8.4-10.2) mg/dL Total Bilirubin (0.2-1.3) mg/dL AST (14-36) U/L ALT (0-35) U/L Alkaline Phosphatase (38-126) U/L Serum Total Protein (6.3-8.2) g/dL Albumin (3.5-5.0) g/dL Influenza Type A Ag NEGATIVE (NEGATIVE) Influenza Type B Ag NEGATIVE (NEGATIVE) RSV (PCR) NEGATIVE (NEGATIVE) SARS-CoV-2 (PCR) NEGATIVE (NEGATIVE) Group A Strep Antibody NOT DETECTED (NEGATIVE) 03/17/23 03/17/23 Range/Units 07:45 07:45 WBC 12.8 H (4.0-10.5) x10^3/uL RBC 4.57 (4.1-5.4) x10^6/uL Hgb 13.7 (12.0-16.0) g/dL Hct 42.3 (35-47) % MCV 92.6 (78-100) fL MCH 30.0 (26-32) pg MCHC 32.4 (32-36) g/dL RDW 14.1 H (11.5-14.0) % Plt Count 303 (150-450) x10^3/uL MPV 10.6 (7.5-11.0) fL Gran % 62.2 (36.0-66.0) % Immature Gran % (Auto) 0.4 (0.00-0.4) % Nucleat RBC Rel Count 0.0 (0.00-0.1) % Eos # (Auto) 0.13 (0-0.5) x10^3/uL Immature Gran # (Auto) 0.05 H (0.00-0.03) x10^3u/L Absolute Lymphs (auto) 4.11 (1.0-4.6) x10^3/uL Absolute Monos (auto) 0.51 (0.0-1.3) x10^3/uL Absolute Nucleated RBC 0.00 (0.00-0.01) x10^3u/L Lymphocytes % 32.1 (24.0-44.0) % Monocytes % 4.0 (0.0-12.0) % Eosinophils % 1.0 (0.00-5.0) % Basophils % 0.3 (0.0-0.4) % Absolute Granulocytes 7.98 H (1.4-6.9) x10^3/uL Basophils # 0.04 (0-0.4) x10^3/uL ESR (0-20) mm/hr Sodium 141 (137-145) mmol/L Potassium 3.7 (3.5-5.1) mmol/L Chloride 104 (98-107) mmol/L Carbon Dioxide 24 (22-30) mmol/L Anion Gap 16.9 H (5-15) MEQ/L BUN 18 H (7-17) mg/dL Creatinine 0.77 (0.52-1.04) mg/dL Estimated GFR > 60.0 ML/MIN Glucose 111 H (74-106) mg/dL Calcium 9.3 (8.4-10.2) mg/dL Total Bilirubin 0.40 (0.2-1.3) mg/dL AST 85 H (14-36) U/L ALT 170 H (0-35) U/L Alkaline Phosphatase 98 (38-126) U/L Serum Total Protein 7.8 (6.3-8.2) g/dL Albumin 4.6 (3.5-5.0) g/dL Influenza Type A Ag (NEGATIVE) Influenza Type B Ag (NEGATIVE) RSV (PCR) (NEGATIVE) SARS-CoV-2 (PCR) (NEGATIVE) Group A Strep Antibody (NEGATIVE) - Progress Progress: improved, re-examined Air Movement: good Progress Note: 03/17/23 08:57 Pt has good improvement with meds and declines furhter pain med. Discussed results including CT, elevated RFT and LFT Sed rate and WBC and elevated BP with pt and that undetected pathology could still be evolving including also a clotting Dx or complication of her CTDx or infection - she is most comfortable with out pt F/U rather than further observation/eval in hospital and has the capacity to make this choice. Also discussed additional AB and she wishes to proceed. 03/17/23 09:01 Blood Culture(s) Obtained: No Antibiotics given: Yes Counseled pt/family regarding: lab results, diagnosis, need for follow-up, rad results Medical Desision Making - Diagnostic Testing Diagnostic test were ordered, analyzed, and reviewed by me: Yes Radiological Interpretation: Teleradiologist Report - Risk of complications The pt has a mod risk of morbidity or mortality based on: Need for prescription drug management The pt has a high risk of morbidity or mortality based on: Decision regarding hospitilization or escalation of hosp level of care - Departure Departure Disposition: Home Clinical Impression: BOM (bilateral otitis media), refractory BOM, Headache Condition: Good Critical Care Time: No Referrals: ALETA AVERY NP [Primary Care Provider] - Follow up/PCP as directed Instructions: Erythrocyte Sedimentation Rate, Headache, Adult (DC), Ear Infections (Otitis Media) in Adults (DC) Additional Instructions: Follow up with your medical provider tomorrow in case additional studies or treatments are needed as there could be additional concerns or complications developing ( including relating to your fibromyalgia or rheumatologic conditions) and to confirm progress. Follow-up also for your blood pressure, liver and kidney tests and inflammation ( elevated Sed rate). Return meantime if not improving or any concerns. Prescriptions: Amox Tr/Potass Clav. 875 mg [Augmentin 875-125 Tablet] 875 mg PO BID #20 tablet
[2023-03-17 07:48] LABS: Absolute Neutrophil Ct (ANC) 7.98 x10^3/uL (1.4-6.9); BASOPHIL % 0.3 % (0.0-0.4); Basophil (Absolute #) 0.04 x10^3/uL (0-0.4); Eosinophil (Absolute #) 0.13 x10^3/uL (0-0.5); Hematocrit 42.3 % (35-47); Hemoglobin 13.7 g/dL (12.0-16.0); IMMATURE GRAN # 0.05 x10^3u/L (0.00-0.03); IMMATURE GRAN % 0.4 % (0.00-0.4); Lymphocyte (Absolute #) 4.11 x10^3/uL (1.0-4.6); Lymphocytes % 32.1 % (24.0-44.0); Mean Cell Volume 92.6 fL (78-100); Mean Corpuscular Hgb Concent. 32.4 g/dL (32-36); Mean Platelet Volume 10.6 fL (7.5-11.0); Monocyte (Absolute #) 0.51 x10^3/uL (0.0-1.3); Neutrophil % 62.2 % (36.0-66.0); Platelet Count 303 x10^3/uL (150-450); Red Blood Count 4.57 x10^6/uL (4.1-5.4); Red Cell Distribution Width 14.1 % (11.5-14.0); White Blood Count 12.8 x10^3/uL (4.0-10.5)
[2023-03-17 08:04] LABS: ALBUMIN 4.6 g/dL (3.5-5.0); ALKALINE PHOSPHATASE 98 U/L (38-126); ANION GAP 16.9 MEQ/L (5-15); BLOOD UREA NITROGEN 18 mg/dL (7-17); CHLORIDE 104 mmol/L (98-107); Calcium 9.3 mg/dL (8.4-10.2); Carbon Dioxide 24 mmol/L (22-30); Creatinine 1 0.77 mg/dL (0.52-1.04); EST GLOMERULAR FILTRATION RATE > 60.0 ML/MIN; Glucose 111 mg/dL (74-106); Potassium 3.7 mmol/L (3.5-5.1); SGOT/AST 85 U/L (14-36); SGPT/ALT 170 U/L (0-35); SODIUM 141 mmol/L (137-145); Total Protein 7.8 g/dL (6.3-8.2)
--- NOTE | 2023-03-17 08:30 | XRAY ---
CLINICAL HISTORY:sudden onset of general headache COMPARISON:None TECHNIQUE:Axial non-contrast CT scan of the brain was performed from the skull base to the high parietal region. Coronal and sagittal reconstruction done. FINDINGS: The visualized brain parenchyma shows normal appearance. No focal parenchymal abnormalities are demonstrated. Arreguin-white matter differentiation is maintained. No midline shifts or deformity. No intracerebral or extra axial hematoma. Normal size and configuration of the cerebral ventricles. Normal CT appearance of the posterior fossa structures namely the cerebellar hemispheres, brainstem and cerebellar peduncles. The IACs are unremarkable. The cerebello-pontine angles are clear. The pituitary gland, the pineal gland, the optic chiasm is unremarkable. The osseous structures in the skull base are unremarkable. No definite calvarium fractures. Scanned paranasal sinuses are clear. No abnormal contrast enhancement seen. Deviated nasal septum to the left with nasal spur is noted. IMPRESSION: Unremarkable non-enhanced CT study for the brain. Electronically Signed by: Eden Sykes MD. (03/17/2023 07:29:10 LABORATORY MACHINIST)
[2023-03-17 08:47] VITALS: O2SAT 99
[2023-03-17 09:00] LABS: INFLUENZA A NEGATIVE (NEGATIVE); INFLUENZA B NEGATIVE (NEGATIVE); RESPIRATORY SYNCTIAL VIRUS NEGATIVE (NEGATIVE); SARS-CoV-2 Xpert Express NEGATIVE (NEGATIVE)
[2023-03-17] MEDS ORDERED: Rocephin 1000 MG INJ IM ONE (09:09)
[2023-03-17] MEDS ORDERED: Rocephin 1000 MG INJ ONE (09:17)
[2023-03-17 09:30] VITALS: BP 125/72; PULSE 98; RESP 27
== END 2023-03-17 09:45 | disposition home or self-care (01) ==
LOC: ED 06:56
DX: H66.93 Otitis media, unspecified, bilateral (principal); J02.9 Acute pharyngitis, unspecified; R09.81 Nasal congestion; Z79.899 Other long term (current) drug therapy; Z28.310 Unvaccinated for COVID-19; Z86.16 Personal history of COVID-19
CPT/HCPCS: 0241U; 36415; 70450; 80053; 85025; 85652; 87651; 96372; 99284; J0696; J1885

== ENCOUNTER 2023-04-10 02:48 | Emergency (ER) | payer BC ==
[2023-04-10 03:11] VITALS: TEMP 97.1
[2023-04-10 03:16] VITALS: O2SAT 96
[2023-04-10] MEDS ORDERED: NORCO 5/325 MG ONE (03:29)
--- NOTE | 2023-04-10 03:31 | ERPHSYRPT ---
- History of Present Illness Time Seen by Provider: 04/10/23 03:10 Source: patient Exam Limitations: no limitations Patient Subjective Stated Complaint: pt states that on Saturday she noticed a wound on her left lateral lower leg and is unsure what caused the wound. earlier today she went to [facility] where they attempted to obtain a wound culture but there wasn't any substance to culture. she was prescribed cephalexin 500mg every 6hrs and her last dose of this was at midnight. she is in ED at this time due the "unimaginable pain" and she can't imagine anything else hurting worse. Triage Nursing Assessment: pt ambulated to room 9 independently with slow steady gait after standing on scale for weight acqusition. pt walking with slight limp which she reports is due to pain in left leg. pt is alert and oriented times three, able to move all extremities, able to speak in complete sentences, and with resp even and unlabored. denies sob, difficulty breathing, wound drainage, change in appetite, fever, cough, chills, difficulty with urination or bowel elimination. Physician History: This is a 32-year-old obese white female patient who noticed this past Saturday prior to this evaluation that there was a wound in the lateral aspect of her left lower leg. She does not know how she acquired that wound. It measures approximately 1-1/2 cm in its longest dimension and approximately half centimeter in its other dimension it is oval in shape. It is very tender to touch. She has not had a fever. Timing/Duration: day(s) Quality: painful Severity: mild (But more painful when you attempt to touch it.) Location: extremities (Lateral aspect left lower extremity) Possible Causes: no cause identified Associated Symptoms: other (Open wound left lower leg lateral aspect) Allergies/Adverse Reactions: nifedipine [From Procardia] Allergy (Mild, Verified 04/10/23 02:54) Home Medications: Omeprazole 40 mg PO DAILY 02/03/22 [History] Fexofenadine HCl [Niru Allergy] 180 mg PO DAILY 09/02/22 [History] modafiniL [Modafinil] 200 mg PO BID 09/02/22 [History] Duloxetine HCl [Cymbalta] 60 mg PO DAILY 02/25/23 [History] Cephalexin Mh 500 mg [Keflex 500 mg] 500 mg PO Q6H 04/10/23 [History] Hx Tetanus, Diphtheria Vaccination/Date Given: Yes Hx Influenza Vaccination/Date Given: No Hx Pneumococcal Vaccination/Date Given: No Immunizations Up to Date: Yes Travel Risk - International Travel Have you traveled outside of the country in past 3 weeks: No - Coronavirus Screening Are you exhibiting any of the following symptoms?: No Close contact with a COVID-19 positive Pt in past 14-21 Days: No - Vaccine Status Have you recieved a Covid-19 vaccination: No - Review of Systems Constitutional: No Symptoms Eyes: No Symptoms Ears, Nose, & Throat: No Symptoms Respiratory: No Symptoms Cardiac: No Symptoms Abdominal/Gastrointestinal: No Symptoms Genitourinary Symptoms: No Symptoms Musculoskeletal: No Symptoms Skin: Other (Fibrinous exudate within wound lateral aspect left lower extremity) Neurological: No Symptoms Psychological: No Symptoms Endocrine: No Symptoms Hematologic/Lymphatic: No Symptoms Immunological/Allergic: No Symptoms All Other Systems: Reviewed and Negative - Past Medical History Pertinent Past Medical History: Yes Neurological History: No Pertinent History ENT History: No Pertinent History Cardiac History: Arrhythmia Respiratory History: Other Endocrine Medical History: Other Musculoskeletal History: Rheumatoid Arthritis GI Medical History: GERD, Gallbladder Disease History: Other Psycho-Social History: Anxiety, Attention Deficit Disorder, Depression Female Reproductive Disorders: No Pertinent History Other Medical History: HX OF COVID IN JUNE 2021, FATTY LIVER, PER PATIENT HAS AN "EXTRA HEART BEAT" - Past Surgical History Past Surgical History: Yes Neuro Surgical History: No Pertinent History Cardiac: No Pertinent History Respiratory: No Pertinent History Gastrointestinal: Cholecystectomy Genitourinary: No Pertinent History Musculoskeletal: No Pertinent History Female Surgical History: Section Other Surgical History: - Social History Smoking Status: Never smoker How long have you smoked: 1 YEAR Exposure to second hand smoke: No Drug Use: none Patient Lives Alone: Yes - Female History Hx Last Menstrual Period: mirena, no periods Hx Now: No - Nursing Vital Signs Nursing Vital Signs: Initial Vital Signs Temperature 97.1 F 04/10/23 02:57 Pulse Rate 76 04/10/23 02:57 Respiratory Rate 16 04/10/23 02:57 Blood Pressure 146/89 04/10/23 02:57 O2 Sat by Pulse Oximetry 97 04/10/23 02:57 Pain Scale Pain Intensity 10 - Physical Exam General Appearance: no apparent distress, alert, anxiety, obese Eye Exam: PERRL/EOMI, eyes nml inspection Ears, Nose, Throat Exam: normal ENT inspection, moist mucous membranes Neck Exam: normal inspection, non-tender, supple, full range of motion Respiratory Exam: airway intact, No chest tenderness, No respiratory distress Gastrointestinal/Abdomen Exam: No tenderness Pelvic Exam: not done Rectal Exam: not done Back Exam: normal inspection, normal range of motion, No vertebral tenderness Extremity Exam: normal range of motion, pelvis stable, tenderness (Open wound 1.5 cm x 0.5 to 1 cm in an oval, lateral aspect, lower left leg. Fibrinous exudate within the central portion of the wound and a tender reddened rim. No cellulitis present) Neurologic Exam: alert, oriented x 3, cooperative, radiator specialist II-XII nml as tested, normal mood/affect, nml cerebellar function, nml station & gait, sensation nml Skin Exam: other (Open wound, lateral aspect left lower extremity. Fibrinous exudate within the open wound. Wound in an oval shape measuring 1.5 cm x 0.5 cm), No jaundice SpO2 Interpretation: normal SpO2: 96 O2 Delivery: Room Air - Course Nursing assessment & vital signs reviewed: Yes - Progress Progress: unchanged Progress Note: 04/10/23 03:30 This patient's medical issue is 1 of low complexity. Level of complexity in the work-up performed is based on the review of the patient's past medical history, review of the patient's medication list, review the patient drug allergy list, history of present illness and physical findings on examination. No laboratory studies or radiographic studies are necessary in this patient. Patient needs the wound debrided. Patient will continue her Keflex antibiotics that she was prescribed by the outpatient clinic. She will receive 2 take-home Baldwin 5/325 tablets. She is to take 1 tablet 30 to 45 minutes prior to soaking her leg in warm soapy water. She is then to mechanically debride the wound after soaking the leg for approximately 15 to 20 minutes. She is to use a scrub brush for this. She is then to rinse the area off and cover with a gauze bandage. She can do this at least 1 time a day and up to 2 times a day. We will also make arrangements for her to be seen in the wound care clinic. Patient received a brochure of our wound care clinic. Counseled pt/family regarding: diagnosis, need for follow-up Medical Desision Making - Diagnostic Testing Diagnostic test were ordered, analyzed, and reviewed by me: No - Risk of complications Minimal Risk: Minimal risk of morbidity - Departure Departure Disposition: Home Clinical Impression: Open wound of lower leg, Wound exudate without odor Condition: Stable Critical Care Time: No Referrals: [facility] [Primary Care Provider] - Follow up/PCP as directed Additional Instructions: Continue your Keflex antibiotics as prescribed. Soak the wound area for 15 to 20 minutes then mechanically debride the area with a hand towel as discussed and cover with a gauze bandage. Do this 1-2 times a day. Follow-up at the [facility] wound care clinic for further evaluation and management. Take the Baldwin 5/325 approximately 30 to 45 minutes prior to your debridement of the open leg wound
[2023-04-10 03:32] VITALS: BP 125/91; PULSE 79; RESP 18
[2023-04-10] MEDS ORDERED: NORCO 5/325 MG PO ONE (03:35)
== END 2023-04-10 03:53 | disposition home or self-care (01) ==
LOC: ED 02:48
DX: S81.802A Unspecified open wound, left lower leg, initial encounter (principal); Z79.899 Other long term (current) drug therapy; Z28.310 Unvaccinated for COVID-19; Z86.16 Personal history of COVID-19
CPT/HCPCS: 99282; A9270-GY

== ENCOUNTER 2023-04-24 10:05 | Emergency (ER) | payer BC ==
--- NOTE | 2023-04-24 10:15 | ERPHSYRPT ---
- History of Present Illness Time Seen by Provider: 04/24/23 10:14 Source: patient, family Exam Limitations: no limitations Patient Subjective Stated Complaint: pt here for sob,cough since yesterday, she states she was seen at [facility] yesterday evening and released. Triage Nursing Assessment: pt alert, walked in, resp easy, chest clear, abd soft . Physician History: This is an obese 32-year-old white female patient of nurse practitioner Yuniel who presents with multiple complaints that began yesterday including shortness of breath, cough, heartburn and "passing out" at work yesterday. In the evening she went to [facility] and a work-up was performed which she states included CT scan of the abdomen pelvis, blood work and urinalysis and then was released. She states she was given a GI cocktail at that facility which did not relieve her symptoms. Her symptoms of burning stabbing epigastric pain and shortness of breath and cough have persisted. Patient has a history of arrhythmias, fibromyalgia, gastroesophageal reflux disease, sleep apnea and attention and deficit disorder. Patient states that she is under a lot of stress recently. Patient states she has not taken her morning medication today. Timing/Duration: yesterday Activities at Onset: none Severity of Dyspnea-Max: mild Severity of Dyspnea-Current: mild Possible Cause: occasional episodes Modifying Factors: Improves With: coughing Associated Symptoms: anxiety, cough, chest pain/discomfort (Describes as a burning stabbing epigastric discomfort), insomnia Allergies/Adverse Reactions: nifedipine [From Procardia] Allergy (Mild, Verified 04/24/23 10:08) Home Medications: Omeprazole 40 mg PO DAILY 02/03/22 [History] Fexofenadine HCl [Niru Allergy] 180 mg PO DAILY 09/02/22 [History] modafiniL [Modafinil] 200 mg PO BID 09/02/22 [History] Duloxetine HCl [Cymbalta] 60 mg PO DAILY 02/25/23 [History] Hx Tetanus, Diphtheria Vaccination/Date Given: Yes Hx Influenza Vaccination/Date Given: No Hx Pneumococcal Vaccination/Date Given: No Immunizations Up to Date: Yes Travel Risk - International Travel Have you traveled outside of the country in past 3 weeks: No - Coronavirus Screening Are you exhibiting any of the following symptoms?: Yes Symptoms: Cough: New Onset, Shortness of Breath Close contact with a COVID-19 positive Pt in past 14-21 Days: No - Vaccine Status Have you recieved a Covid-19 vaccination: No - Review of Systems Constitutional: No Symptoms Eyes: No Symptoms Ears, Nose, & Throat: No Symptoms Respiratory: Cough, Dyspnea (Mild) Cardiac: Chest Pain (Described as epigastric sharp burning sensation) Abdominal/Gastrointestinal: Abdominal Pain (Epigastric sharp burning sensation) Genitourinary Symptoms: No Symptoms Musculoskeletal: No Symptoms Skin: No Symptoms Neurological: No Symptoms Psychological: No Symptoms Endocrine: No Symptoms Hematologic/Lymphatic: No Symptoms Immunological/Allergic: No Symptoms All Other Systems: Reviewed and Negative - Past Medical History Pertinent Past Medical History: Yes Neurological History: No Pertinent History ENT History: No Pertinent History Cardiac History: Arrhythmia Respiratory History: Sleep Apnea, Other Endocrine Medical History: Liver Disease Musculoskeletal History: Fibromyalgia GI Medical History: GERD, Gallbladder Disease History: Other Psycho-Social History: Anxiety, Attention Deficit Disorder, Depression Female Reproductive Disorders: No Pertinent History Other Medical History: PATIENT REPORTS USES C-PAP AT NIGHT. ALSO HAS NARCOLEPSY - ON MEDS AND IS CONTROLLED. STARTED ON ANTIBIOTICS AT [employer] (CEPHALAXIN) 04/09 AND THEN 04/10 STARTED ON CLINDAMYCIN AND MUPROCIN OINTMENT. - Past Surgical History Past Surgical History: Yes Neuro Surgical History: No Pertinent History Cardiac: No Pertinent History Respiratory: No Pertinent History Gastrointestinal: Cholecystectomy Genitourinary: No Pertinent History Musculoskeletal: No Pertinent History Female Surgical History: Section Other Surgical History: - Social History Smoking Status: Never smoker How long have you smoked: 1 YEAR Exposure to second hand smoke: No Drug Use: none Patient Lives Alone: Yes - Female History Hx Last Menstrual Period: none Hx Now: No - Nursing Vital Signs Nursing Vital Signs: Initial Vital Signs Pulse Rate 72 04/24/23 10:07 Respiratory Rate 25 H 04/24/23 10:07 Blood Pressure 139/101 04/24/23 10:07 O2 Sat by Pulse Oximetry 96 04/24/23 10:07 Pain Scale Pain Intensity 8 - Physical Exam General Appearance: no apparent distress, alert, anxiety, obese Eye Exam: PERRL/EOMI, eyes nml inspection Ears, Nose, Throat Exam: hearing grossly normal, normal ENT inspection, normal pharynx Neck Exam: normal inspection, non-tender, supple, full range of motion Respiratory Exam: normal breath sounds, lungs clear, airway intact, No chest tenderness, No respiratory distress Cardiovascular/Chest Exam: normal heart sounds, regular rate/rhythm Abdominal/Gastrointestinal Exam: soft, normal bowel sounds, No tenderness Rectal Exam: not done Extremity Exam: non-tender, normal range of motion, normal inspection, normal capillary refill, no calf tenderness, no pedal edema, pelvis stable Neurologic Exam: alert, oriented x 3, cooperative, screen tacker II-XII nml as tested, normal mood/affect, nml cerebellar function, nml station & gait, sensation nml Skin Exam: normal color, warm, dry Lymphatic Exam: No adenopathy SpO2 Interpretation: normal SpO2: 96 O2 Delivery: Room Air - Course Nursing assessment & vital signs reviewed: Yes Ordered Tests: Active Orders 24 hr Category Date Time Status EKG-ER Only STAT Care 04/24/23 10:26 Active IV Insertion STAT Care 04/24/23 10:26 Active HEAD WITHOUT CONTRAST [CT] Routine Exams 04/24/23 10:53 Taken AMYLASE Stat Lab 04/24/23 10:35 Completed CBC W DIFF Stat Lab 04/24/23 10:35 Completed CMP Stat Lab 04/24/23 10:35 Completed LIPASE Stat Lab 04/24/23 10:35 Completed T4 (Thyroxine) Stat Lab 04/24/23 10:20 Completed TROPONIN Q4H Lab 04/24/23 10:35 Completed TROPONIN Q4H Lab 04/24/23 14:30 Ordered TROPONIN Q4H Lab 04/24/23 18:30 Ordered TSH [TSH, 3RD Generation] Stat Lab 04/24/23 10:20 Completed UA W/RFX UR CULTURE Stat Lab 04/24/23 10:26 Ordered Medication Summary Discontinued Medications Generic Name Dose Route Start Last Admin Trade Name Freq PRN Reason Stop Dose Admin Sodium Chloride 1,000 mls @ 999 mls/hr 04/24/23 10:26 04/24/23 10:37 Sodium Chloride 0.9% 1000 Ml IV 04/24/23 11:26 999 mls/hr .Q1H1M STA Administration Sodium Chloride Confirm 04/24/23 10:29 Sodium Chloride 0.9% 1000 Ml Administered 04/24/23 10:30 Dose 1,000 mls @ ud .ROUTE .STK-MED ONE Pantoprazole Sodium 40 mg 04/24/23 10:26 04/24/23 10:36 Pantoprazole 40 Mg Vial IV 04/24/23 10:27 40 mg STAT ONE Administration Pantoprazole Sodium Confirm 04/24/23 10:29 Pantoprazole 40 Mg Vial Administered 04/24/23 10:30 Dose 40 mg IV .STK-MED ONE Lab/Rad Data: Laboratory Result Diagrams 04/24/23 10:35 04/24/23 10:35 Laboratory Results 04/24/23 04/24/23 04/24/23 Range/Units 10:35 10:35 10:35 WBC 9.9 (4.0-10.5) x10^3/uL RBC 4.65 (4.1-5.4) x10^6/uL Hgb 13.8 (12.0-16.0) g/dL Hct 41.9 (35-47) % MCV 90.1 (78-100) fL MCH 29.7 (26-32) pg MCHC 32.9 (32-36) g/dL RDW 13.2 (11.5-14.0) % Plt Count 288 (150-450) x10^3/uL MPV 10.9 (7.5-11.0) fL Gran % 68.5 H (36.0-66.0) % Immature Gran % (Auto) 0.2 (0.00-0.4) % Nucleat RBC Rel Count 0.0 (0.00-0.1) % Eos # (Auto) 0.12 (0-0.5) x10^3/uL Immature Gran # (Auto) 0.02 (0.00-0.03) x10^3u/L Absolute Lymphs (auto) 2.56 (1.0-4.6) x10^3/uL Absolute Monos (auto) 0.37 (0.0-1.3) x10^3/uL Absolute Nucleated RBC 0.00 (0.00-0.01) x10^3u/L Lymphocytes % 26.0 (24.0-44.0) % Monocytes % 3.8 (0.0-12.0) % Eosinophils % 1.2 (0.00-5.0) % Basophils % 0.3 (0.0-0.4) % Absolute Granulocytes 6.75 (1.4-6.9) x10^3/uL Basophils # 0.03 (0-0.4) x10^3/uL Sodium 136 L (137-145) mmol/L Potassium 3.8 (3.5-5.1) mmol/L Chloride 106 (98-107) mmol/L Carbon Dioxide 24 (22-30) mmol/L Anion Gap 10.1 (5-15) MEQ/L BUN 12 (7-17) mg/dL Creatinine 0.63 (0.52-1.04) mg/dL Estimated GFR > 60.0 ML/MIN Glucose 130 H (74-106) mg/dL Calcium 9.2 (8.4-10.2) mg/dL Total Bilirubin 0.30 (0.2-1.3) mg/dL AST 44 H (14-36) U/L ALT 75 H (0-35) U/L Alkaline Phosphatase 103 (38-126) U/L Troponin I < 0.012 (0.000-0.034) ng/mL Serum Total Protein 7.3 (6.3-8.2) g/dL Albumin 4.4 (3.5-5.0) g/dL Amylase 58 (30-110) U/L Lipase 96 (23-300) U/L Thyroxine (T4) (5.53-10.96) ug/dL TSH 3rd Generation (0.47-4.68) mIU/L 04/24/23 Range/Units 10:20 WBC (4.0-10.5) x10^3/uL RBC (4.1-5.4) x10^6/uL Hgb (12.0-16.0) g/dL Hct (35-47) % MCV (78-100) fL MCH (26-32) pg MCHC (32-36) g/dL RDW (11.5-14.0) % Plt Count (150-450) x10^3/uL MPV (7.5-11.0) fL Gran % (36.0-66.0) % Immature Gran % (Auto) (0.00-0.4) % Nucleat RBC Rel Count (0.00-0.1) % Eos # (Auto) (0-0.5) x10^3/uL Immature Gran # (Auto) (0.00-0.03) x10^3u/L Absolute Lymphs (auto) (1.0-4.6) x10^3/uL Absolute Monos (auto) (0.0-1.3) x10^3/uL Absolute Nucleated RBC (0.00-0.01) x10^3u/L Lymphocytes % (24.0-44.0) % Monocytes % (0.0-12.0) % Eosinophils % (0.00-5.0) % Basophils % (0.0-0.4) % Absolute Granulocytes (1.4-6.9) x10^3/uL Basophils # (0-0.4) x10^3/uL Sodium (137-145) mmol/L Potassium (3.5-5.1) mmol/L Chloride (98-107) mmol/L Carbon Dioxide (22-30) mmol/L Anion Gap (5-15) MEQ/L BUN (7-17) mg/dL Creatinine (0.52-1.04) mg/dL Estimated GFR ML/MIN Glucose (74-106) mg/dL Calcium (8.4-10.2) mg/dL Total Bilirubin (0.2-1.3) mg/dL AST (14-36) U/L ALT (0-35) U/L Alkaline Phosphatase (38-126) U/L Troponin I (0.000-0.034) ng/mL Serum Total Protein (6.3-8.2) g/dL Albumin (3.5-5.0) g/dL Amylase (30-110) U/L Lipase (23-300) U/L Thyroxine (T4) 8.99 (5.53-10.96) ug/dL TSH 3rd Generation 1.570 (0.47-4.68) mIU/L - Progress Progress: improved, re-examined Air Movement: good Progress Note: 04/24/23 10:34 This patient's medical issue is 1 of moderate complexity. Level complexity in the work-up performed is based on review of the patient's past medical history, review of the patient's medication list, review of the patient's drug allergy list, history present illness and physical findings on examination. I will rev iew the outside hospital facility records from [facility] when they arrived to the emergency department. Patient's work-up will include CT scan of the head, twelve-lead EKG, placement of intravenous line, CBC, CMP, T4 and TSH, troponin level, urinalysis. 04/24/23 11:36 I reviewed the laboratory results of this patient. There is no evidence of any acute, emergent findings. The medical records from the outside facility emergency department was reviewed by me. CT scan of the head without contrast was interpreted by the radiologist and I reviewed the impression. It is a normal CT scan of the head without contrast 04/24/23 12:00 I compared the laboratory results from [facility] to today's labs. There is an improvement in her white count from 11.7-9.9. Other than that the labs are within normal limits. The CAT scan of the abdomen pelvis that was performed yesterday shows no acute, emergent findings. Blood Culture(s) Obtained: No Antibiotics given: No Counseled pt/family regarding: lab results, diagnosis, need for follow-up, rad results Medical Desision Making - External Record(s) Reviewed Records reviewed as a part of evaluation & management: Urgent Care (Emergency department records on 04/23/2023 from [facility].) - Diagnostic Testing Diagnostic test were ordered, analyzed, and reviewed by me: Yes Radiological Interpretation: Reviewed by me, Teleradiologist Report - Departure Departure Disposition: Home Clinical Impression: Left leg numbness, Epigastric burning sensation Condition: Stable Critical Care Time: No Referrals: ALETA AVERY NP [Primary Care Provider] - Follow up/PCP as directed Additional Instructions: Drink plenty of fluids. Take your medications as prescribed. Avoid fatty greasy spicy foods. Follow-up with your primary care provider today by phone to make arranges for follow-up appointment in the next 3 to 5 days.
[2023-04-24] MEDS ORDERED: Sodium Chloride 0.9% 1000 ML 1,000 ML IV STA (10:26)
[2023-04-24] MEDS ORDERED: PROTONIX 40 MG IV IV ONE ×2 (10:26→10:29)
[2023-04-24] MEDS ORDERED: Sodium Chloride 0.9% 1000 ML 1,000 ML ONE (10:29)
[2023-04-24 10:41] LABS: Absolute Neutrophil Ct (ANC) 6.75 x10^3/uL (1.4-6.9); BASOPHIL % 0.3 % (0.0-0.4); Basophil (Absolute #) 0.03 x10^3/uL (0-0.4); Eosinophil % 1.2 % (0.00-5.0); Eosinophil (Absolute #) 0.12 x10^3/uL (0-0.5); Hematocrit 41.9 % (35-47); Hemoglobin 13.8 g/dL (12.0-16.0); IMMATURE GRAN # 0.02 x10^3u/L (0.00-0.03); IMMATURE GRAN % 0.2 % (0.00-0.4); Lymphocyte (Absolute #) 2.56 x10^3/uL (1.0-4.6); Mean Cell Volume 90.1 fL (78-100); Mean Corpuscular Hemoglobin 29.7 pg (26-32); Mean Corpuscular Hgb Concent. 32.9 g/dL (32-36); Mean Platelet Volume 10.9 fL (7.5-11.0); Monocyte (Absolute #) 0.37 x10^3/uL (0.0-1.3); Monocytes % 3.8 % (0.0-12.0); Neutrophil % 68.5 % (36.0-66.0); Platelet Count 288 x10^3/uL (150-450); Red Blood Count 4.65 x10^6/uL (4.1-5.4); Red Cell Distribution Width 13.2 % (11.5-14.0); White Blood Count 9.9 x10^3/uL (4.0-10.5)
[2023-04-24 11:04] LABS: ALBUMIN 4.4 g/dL (3.5-5.0); ALKALINE PHOSPHATASE 103 U/L (38-126); AMYLASE 58 U/L (30-110); ANION GAP 10.1 MEQ/L (5-15); BLOOD UREA NITROGEN 12 mg/dL (7-17); CHLORIDE 106 mmol/L (98-107); Calcium 9.2 mg/dL (8.4-10.2); Carbon Dioxide 24 mmol/L (22-30); Creatinine 1 0.63 mg/dL (0.52-1.04); EST GLOMERULAR FILTRATION RATE > 60.0 ML/MIN; Glucose 130 mg/dL (74-106); LIPASE 96 U/L (23-300); Potassium 3.8 mmol/L (3.5-5.1); SGOT/AST 44 U/L (14-36); SGPT/ALT 75 U/L (0-35); SODIUM 136 mmol/L (137-145); Total Protein 7.3 g/dL (6.3-8.2)
[2023-04-24 11:34] LABS: T4 (Thyroxine) 8.99 ug/dL (5.53-10.96); TSH, 3RD Generation 1.57 mIU/L (0.47-4.68)
[2023-04-24 12:15] VITALS: BP 144/111; PULSE 80; RESP 16; O2SAT 98
--- NOTE | 2023-04-24 13:54 | XRAY ---
Indication: Left leg numbness, dizziness, and syncope. Multiple contiguous axial images obtained through the head without contrast. Comparison: Multiple prior ER CT exams, most recent March 17, 2023. Normal appearing brain parenchyma, ventricles, and bony calvarium. Visualized paranasal sinuses and mastoid air cells are clear. Impression: Continued normal CT head without contrast exam.
== END 2023-04-24 12:21 | disposition home or self-care (01) ==
LOC: ED 10:05
DX: R10.13 Epigastric pain (principal); R20.0 Anesthesia of skin; R06.02 Shortness of breath; R05.1 Acute cough; Z79.899 Other long term (current) drug therapy; Z28.310 Unvaccinated for COVID-19
CPT/HCPCS: 36000; 36415; 70450; 80053; 82150; 83690; 84436; 84443; 84484; 85025; 93005; 96374; 99284

== ENCOUNTER 2023-05-01 13:26 | Emergency (ER) | payer BC ==
--- NOTE | 2023-05-01 13:31 | ERPHSYRPT ---
- History of Present Illness Time Seen by Provider: 05/01/23 13:31 Source: patient Exam Limitations: no limitations Physician History: This is an obese 32-year-old white female patient who last evening fell off the porch and caught her right foot and distal ankle and a railing. She has pain on the bottom of her right foot as well as the back of her right ankle. Patient has multiple medical problems and including obesity, arrhythmia, gastroesophageal reflux disease, ADD, sleep apnea and fibromyalgia. Quality: aching Severity of Pain-Max: mild (To moderate) Severity of Pain-Current: mild (To moderate) Lower Extremities Pain: foot: right, ankle: right Modifying Factors: Improves With: movement Associated Symptoms: other (Hurts to bear weight) Allergies/Adverse Reactions: nifedipine [From Procardia] Allergy (Mild, Verified 04/24/23 10:08) Home Medications: Omeprazole 40 mg PO DAILY 02/03/22 [History] Fexofenadine HCl [Niru Allergy] 180 mg PO DAILY 09/02/22 [History] modafiniL [Modafinil] 200 mg PO BID 09/02/22 [History] Duloxetine HCl [Cymbalta] 60 mg PO DAILY 02/25/23 [History] Hx Tetanus, Diphtheria Vaccination/Date Given: Yes Hx Influenza Vaccination/Date Given: No Hx Pneumococcal Vaccination/Date Given: No Travel Risk - International Travel Have you traveled outside of the country in past 3 weeks: No - Coronavirus Screening Are you exhibiting any of the following symptoms?: No Close contact with a COVID-19 positive Pt in past 14-21 Days: No - Vaccine Status Have you recieved a Covid-19 vaccination: No - Review of Systems Constitutional: No Symptoms Eyes: No Symptoms Ears, Nose, & Throat: No Symptoms Respiratory: No Symptoms Cardiac: No Symptoms Abdominal/Gastrointestinal: No Symptoms Genitourinary Symptoms: No Symptoms Musculoskeletal: Fall, Injury (Right ankle) Skin: No Symptoms Neurological: No Symptoms Psychological: No Symptoms Endocrine: No Symptoms Hematologic/Lymphatic: No Symptoms Immunological/Allergic: No Symptoms All Other Systems: Reviewed and Negative - Past Medical History Pertinent Past Medical History: Yes Neurological History: No Pertinent History ENT History: No Pertinent History Cardiac History: Arrhythmia Respiratory History: Sleep Apnea, Other Endocrine Medical History: Liver Disease Musculoskeletal History: Fibromyalgia GI Medical History: GERD, Gallbladder Disease History: Other Psycho-Social History: Anxiety, Attention Deficit Disorder, Depression Female Reproductive Disorders: No Pertinent History Other Medical History: PATIENT REPORTS USES C-PAP AT NIGHT. ALSO HAS NARCOLEPSY - ON MEDS AND IS CONTROLLED. STARTED ON ANTIBIOTICS AT [facility] (CEPHALAXIN) 04/09 AND THEN 04/10 STARTED ON CLINDAMYCIN AND MUPROCIN OINTMENT. - Past Surgical History Past Surgical History: Yes Neuro Surgical History: No Pertinent History Cardiac: No Pertinent History Respiratory: No Pertinent History Gastrointestinal: Cholecystectomy Genitourinary: No Pertinent History Musculoskeletal: No Pertinent History Female Surgical History: Section Other Surgical History: - Social History Smoking Status: Never smoker How long have you smoked: 1 YEAR Exposure to second hand smoke: No Drug Use: none Patient Lives Alone: Yes - Nursing Vital Signs Nursing Vital Signs: Initial Vital Signs Temperature 98.9 F 05/01/23 13:37 Pulse Rate 78 05/01/23 13:37 Respiratory Rate 20 05/01/23 13:37 Blood Pressure 157/115 05/01/23 13:37 O2 Sat by Pulse Oximetry 96 05/01/23 13:37 Pain Scale Pain Intensity 8 - Physical Exam General Appearance: no apparent distress, alert, anxiety, obese Eyes, Ears, Nose, Throat Exam: normal ENT inspection, moist mucous membranes Neck Exam: normal inspection, non-tender, supple, full range of motion Cardiovascular/Respiratory Exam: chest non-tender, no respiratory distress Gastrointestinal/Abdominal Exam: non-tender Back Exam: normal inspection, normal range of motion, No CVA tenderness, No vertebral tenderness Hips Exam: bilateral: non-tender, normal inspection, normal range of motion, no evidence of injury Legs Exam: bilateral leg: non-tender, normal inspection, normal range of motion, no evidence of injury Knees Exam: bilateral knee: non-tender, normal inspection, normal range of motion, no evidence of injury Ankle Exam: right ankle: soft tissue tenderness, swelling, left ankle: non- tender, normal inspection, normal range of motion, no evidence of injury Foot Exam: right foot: soft tissue tenderness, left foot: non-tender, bilateral foot: normal inspection, normal range of motion, no evidence of injury Neuro/Tendon Exam: normal sensation, normal motor functions, normal tendon functions, responds to pain, no evidence tendon injury Mental Status Exam: alert, oriented x 3, cooperative Skin Exam: normal color, warm, dry SpO2 Interpretation: normal O2 Delivery: Room Air - Course Nursing assessment & vital signs reviewed: Yes Ordered Tests: Active Orders 24 hr Category Date Time Status Mark[facility] STAT Care 05/01/23 14:24 Active Crutches STAT Care 05/01/23 14:25 Active ANKLE (3 VIEWS) Stat Exams 05/01/23 13:47 Completed FOOT (MINIMUM 3 VIEWS) Stat Exams 05/01/23 13:47 Completed - Progress Progress: pain not gone completely Progress Note: 05/01/23 14:17 This patient's medical issue is 1 of low complexity. Level complex in the work- up performed based on review of the patient's past medical history, review of the patient's medication list, review the patient's drug allergy list, history present illness and physical findings on examination. Work-up in this patient includes x-ray of the right foot and right ankle. 05/01/23 14:25 X-ray right ankle was interpreted by me. I do not appreciate a fracture or dislocation. X-ray of right foot was interpreted by me. I do not appreciate a fracture or dislocation. Counseled pt/family regarding: diagnosis, need for follow-up, rad results Medical Desision Making - Diagnostic Testing Diagnostic test were ordered, analyzed, and reviewed by me: Yes Radiological Interpretation: Interpreted by me - Risk of complications Minimal Risk: Minimal risk of morbidity - Departure Departure Disposition: Home Clinical Impression: Right ankle sprain Condition: Stable Critical Care Time: No Referrals: ALETA AVERY NP [Primary Care Provider] - Follow up/PCP as directed Additional Instructions: Wear the markell wrap and use crutches for comfort. Weightbearing as tolerated. Ice pack to tender area 3 times a day for the next 48 hours. Use Tylenol and ibuprofen for pain control. Call your primary care provider today, 05/01/2023, to make arranges for follow-up appointment for further evaluation and management including outpatient pain control if indicated.
[2023-05-01 13:41] VITALS: PULSE 78; RESP 20; TEMP 98.9
--- NOTE | 2023-05-01 14:24 | XRAY ---
Indication: Pain following fall. Comparison: None 3 view right ankle demonstrates tiny posterior/small plantar heel spurs. No other bony, articular, or soft tissue abnormalities.
--- NOTE | 2023-05-01 14:26 | XRAY ---
Indication: Pain following fall. Comparison: None 3 nonweightbearing views right foot demonstrates tiny posterior/small plantar heel spurs. No other bony, articular, or soft tissue abnormalities.
[2023-05-01 14:38] VITALS: BP 121/84; O2SAT 95
== END 2023-05-01 14:48 | disposition home or self-care (01) ==
LOC: ED 13:26
DX: S93.401A Sprain of unspecified ligament of right ankle, initial encounter (principal); W17.89XA Other fall from one level to another, initial encounter; Y92.007 Garden or yard of unspecified non-institutional (private) residence as the place of occurrence of the external cause; Z79.899 Other long term (current) drug therapy; Z28.310 Unvaccinated for COVID-19
CPT/HCPCS: 73610; 73630; 99283

== ENCOUNTER 2023-08-17 18:37 | Emergency (ER) | payer BC ==
[2023-08-17 18:47] VITALS: TEMP 97.8
[2023-08-17] MEDS ORDERED: BABY ASPIRIN 81 MG CHEW ONE (19:20)
[2023-08-17] MEDS ORDERED: XYLOCAINE VISCOUS 2% 15 ML CUP ONE (19:20)
[2023-08-17] MEDS ORDERED: MAALOX ES 30 ML UNIT DOSE ONE (19:20)
[2023-08-17] MEDS ORDERED: PROTONIX 40 MG IV IV ONE (19:20)
--- NOTE | 2023-08-17 19:20 | ERPHSYRPT ---
- History of Present Illness Time Seen by Provider: 08/17/23 18:41 Historian: patient Exam Limitations: no limitations Patient Subjective Stated Complaint: C/O sudden onset of chest pain approx 10 minutes prior to checking into the ER today. Indicates the pain is a stabbing pain that moves into her left arm. Triage Nursing Assessment: Patient brought back to ER in a W/C. She is alert and oriented. No SOB. She is diaphoretic. No edema. LIMA WNL. Physician History: 33 years old female with history of anxiety/depression /hypertension/hyperlipidemia/diabetes mellitus, morbid obesity presented in the ER with complaints of sudden onset substernal chest pain with some radiation to left arm. Patient reports she had a dinner at a restaurant and after that she started to feel mildly dizzy lightheaded and on the way back home she started to have this chest pain. Moderate to severe dull aching to sharp nature without an y significant aggravating or relieving factors. Report associated nausea but no vomiting. Reports having similar symptoms in the past as well after eating. Allergies/Adverse Reactions: nifedipine [From Procardia] Allergy (Mild, Verified 08/17/23 18:40) Home Medications: Omeprazole 40 mg PO DAILY 02/03/22 [History] Fexofenadine HCl [Niru Allergy] 180 mg PO DAILY 09/02/22 [History] modafiniL [Modafinil] 200 mg PO BID 09/02/22 [History] Duloxetine HCl [Cymbalta] 60 mg PO DAILY 02/25/23 [History] Atorvastatin Calcium [Lipitor] 1 tab PO DAILY 08/17/23 [History] Escitalopram Oxalate [Lexapro] 1 tab PO DAILY 08/17/23 [History] Hydroxyzine HCl 25 mg [Atarax 25 mg] 1 tab PO QID PRN 08/17/23 [History] Lisinopril 10 mg [Zestril 10 MG] 1 tab PO DAILY 08/17/23 [History] Metformin HCl 500 mg [Glucophage 500 MG] 1,000 mg PO BID 08/17/23 [History] Hx Tetanus, Diphtheria Vaccination/Date Given: Yes Hx Influenza Vaccination/Date Given: Yes Hx Pneumococcal Vaccination/Date Given: No Immunizations Up to Date: Yes Travel Risk - International Travel Have you traveled outside of the country in past 3 weeks: No - Coronavirus Screening Are you exhibiting any of the following symptoms?: No Close contact with a COVID-19 positive Pt in past 14-21 Days: No - Vaccine Status Have you recieved a Covid-19 vaccination: No - Review of Systems Constitutional: No Symptoms Eyes: No Symptoms Ears, Nose, & Throat: No Symptoms Respiratory: No Symptoms Cardiac: Chest Pain Abdominal/Gastrointestinal: No Symptoms Genitourinary Symptoms: No Symptoms Musculoskeletal: No Symptoms Skin: No Symptoms Neurological: No Symptoms Endocrine: No Symptoms Hematologic/Lymphatic: No Symptoms - Past Medical History Pertinent Past Medical History: Yes Neurological History: No Pertinent History ENT History: No Pertinent History Cardiac History: Arrhythmia, High Cholesterol, Hypertension Respiratory History: Sleep Apnea, Other Endocrine Medical History: Diabetes Type II, Liver Disease Musculoskeletal History: Fibromyalgia GI Medical History: GERD, Gallbladder Disease History: Other Psycho-Social History: Anxiety, Attention Deficit Disorder, Depression Female Reproductive Disorders: No Pertinent History Other Medical History: C-PAP, Narcolepsy, non-alcoholic fatty liver disease - Past Surgical History Past Surgical History: Yes Neuro Surgical History: No Pertinent History Cardiac: No Pertinent History Respiratory: No Pertinent History Gastrointestinal: Cholecystectomy Genitourinary: No Pertinent History Musculoskeletal: No Pertinent History Female Surgical History: Section Other Surgical History: - Social History Smoking Status: Never smoker How long have you smoked: 1 YEAR Exposure to second hand smoke: No Drug Use: none Patient Lives Alone: Yes - Female History Hx Last Menstrual Period: No longer has them Hx Now: (unkn) - Nursing Vital Signs Nursing Vital Signs: Initial Vital Signs Temperature 97.8 F 08/17/23 18:40 Pulse Rate 115 H 08/17/23 18:40 Respiratory Rate 19 08/17/23 18:40 Blood Pressure 118/97 08/17/23 18:40 O2 Sat by Pulse Oximetry 96 08/17/23 18:40 Pain Scale Pain Intensity 5 - Physical Exam General Appearance: no apparent distress, alert Eye Exam: PERRL/EOMI Ears, Nose, Throat Exam: normal ENT inspection Neck Exam: normal inspection, non-tender, supple, full range of motion Respiratory Exam: normal breath sounds, lungs clear Cardiovascular Exam: normal heart sounds, tachycardia Gastrointestinal/Abdomen Exam: soft, normal bowel sounds, No tenderness Back Exam: normal inspection, normal range of motion Extremity Exam: normal inspection, normal range of motion Neurologic Exam: alert, oriented x 3, cooperative, shiftman II-XII nml as tested Skin Exam: normal color SpO2 Interpretation: normal SpO2: 96 O2 Delivery: Room Air - Course EKG Interpreted by Me: RATE ([id number]), Sinus Tach, NORMAL AXIS, NORMAL INTERVALS, Non-specific ST Changes Ordered Tests: Active Orders 24 hr Category Date Time Status Paint Tinter STAT Care 08/17/23 19:11 Active EKG-ER Only STAT Care 08/17/23 19:11 Active CHEST 1 VIEW (PORTABLE) Stat Exams 08/17/23 19:11 Taken CBC W DIFF Stat Lab 08/17/23 19:24 Completed CMP Stat Lab 08/17/23 19:24 Completed D-DIMER QUANTITATIVE Stat Lab 08/17/23 19:24 Completed HCG QUALITATIVE, SERUM Stat Lab 08/17/23 19:24 Completed TROPONIN Q4H Lab 08/17/23 19:24 Completed TROPONIN Q4H Lab 08/17/23 22:30 Completed TROPONIN Q4H Lab 08/18/23 03:15 Ordered Medication Summary Discontinued Medications Generic Name Dose Route Start Last Admin Trade Name Freq PRN Reason Stop Dose Admin Al Hydrox/Mg Hydrox/Simethicone Confirm 08/17/23 19:20 Mag Hydrox/Al Hydrox/Simeth 30 Ml Udcup Administered 08/17/23 19:21 Dose 30 ml .ROUTE .STK-MED ONE Aspirin 324 mg 08/17/23 19:11 08/17/23 19:27 Aspirin 81 Mg Tab.Chew PO 08/17/23 19:12 324 mg STAT ONE Administration Aspirin Confirm 08/17/23 19:20 Aspirin 81 Mg Tab.Chew Administered 08/17/23 19:21 Dose 324 mg .ROUTE .STK-MED ONE Sodium Chloride 500 mls @ 500 mls/hr 08/17/23 20:32 08/17/23 21:36 Sodium Chloride 0.9% 500 Ml IV 08/17/23 21:31 Infused .Q1H ONE Infusion Sodium Chloride Confirm 08/17/23 20:33 Sodium Chloride 0.9% 500 Ml Administered 08/17/23 20:34 Dose 500 mls @ ud IV .STK-MED ONE Lidocaine HCl Confirm 08/17/23 19:20 Lidocaine Hcl 2% Viscous 15 Ml Udcup Administered 08/17/23 19:21 Dose 15 ml .ROUTE .[employer]eg [employer]-3ROAM ONE Magnesium Hydroxide 45 ml 08/17/23 19:12 08/17/23 19:28 Mag Hydrx/Alum Hyd/Simeth/Lido 45 Ml Bottle PO 08/17/23 19:13 45 ml STAT ONE Administration Pantoprazole Sodium 40 mg 08/17/23 19:12 08/17/23 19:30 Pantoprazole 40 Mg Vial IV 08/17/23 19:13 40 mg STAT ONE Administration Pantoprazole Sodium Confirm 08/17/23 19:20 Pantoprazole 40 Mg Vial Administered 08/17/23 19:21 Dose 40 mg IV .[employer]-3ROAM ONE Lab/Rad Data: Laboratory Result Diagrams 08/17/23 19:24 08/17/23 19:24 Laboratory Results 08/17/23 08/17/23 08/17/23 Range/Units 22:30 19:24 19:24 WBC (4.0-10.5) x10^3/uL RBC (4.1-5.4) x10^6/uL Hgb (12.0-16.0) g/dL Hct (35-47) % MCV (78-100) fL MCH (26-32) pg MCHC (32-36) g/dL RDW (11.5-14.0) % Plt Count (150-450) x10^3/uL MPV (7.5-11.0) fL Gran % (36.0-66.0) % Immature Gran % (Auto) (0.00-0.4) % Nucleat RBC Rel Count (0.00-0.1) % Eos # (Auto) (0-0.5) x10^3/uL Immature Gran # (Auto) (0.00-0.03) x10^3u/L Absolute Lymphs (auto) (1.0-4.6) x10^3/uL Absolute Monos (auto) (0.0-1.3) x10^3/uL Absolute Nucleated RBC (0.00-0.01) x10^3u/L Lymphocytes % (24.0-44.0) % Monocytes % (0.0-12.0) % Eosinophils % (0.00-5.0) % Basophils % (0.0-0.4) % Absolute Granulocytes (1.4-6.9) x10^3/uL Basophils # (0-0.4) x10^3/uL D-Dimer (0.0-0.50) mg/L Sodium (137-145) mmol/L Potassium (3.5-5.1) mmol/L Chloride (98-107) mmol/L Carbon Dioxide (22-30) mmol/L Anion Gap (5-15) MEQ/L BUN (7-17) mg/dL Creatinine (0.52-1.04) mg/dL Estimated GFR ML/MIN Glucose (74-106) mg/dL Calcium (8.4-10.2) mg/dL Total Bilirubin (0.2-1.3) mg/dL AST (14-36) U/L ALT (0-35) U/L Alkaline Phosphatase (38-126) U/L Troponin I < 0.012 < 0.012 (0.000-0.034) ng/mL Serum Total Protein (6.3-8.2) g/dL Albumin (3.5-5.0) g/dL Serum HCG, Qual NEGATIVE (NEGATIVE) 08/17/23 08/17/23 08/17/23 Range/Units 19:24 19:24 19:24 WBC 7.1 (4.0-10.5) x10^3/uL RBC 4.56 (4.1-5.4) x10^6/uL Hgb 13.6 (12.0-16.0) g/dL Hct 41.5 (35-47) % MCV 91.0 (78-100) fL MCH 29.8 (26-32) pg MCHC 32.8 (32-36) g/dL RDW 12.8 (11.5-14.0) % Plt Count 289 (150-450) x10^3/uL MPV 10.9 (7.5-11.0) fL Gran % 60.8 (36.0-66.0) % Immature Gran % (Auto) 0.3 (0.00-0.4) % Nucleat RBC Rel Count 0.0 (0.00-0.1) % Eos # (Auto) 0.07 (0-0.5) x10^3/uL Immature Gran # (Auto) 0.02 (0.00-0.03) x10^3u/L Absolute Lymphs (auto) 2.35 (1.0-4.6) x10^3/uL Absolute Monos (auto) 0.31 (0.0-1.3) x10^3/uL Absolute Nucleated RBC 0.00 (0.00-0.01) x10^3u/L Lymphocytes % 33.1 (24.0-44.0) % Monocytes % 4.4 (0.0-12.0) % Eosinophils % 1.0 (0.00-5.0) % Basophils % 0.4 (0.0-0.4) % Absolute Granulocytes 4.32 (1.4-6.9) x10^3/uL Basophils # 0.03 (0-0.4) x10^3/uL D-Dimer 0.21 (0.0-0.50) mg/L Sodium 137 (137-145) mmol/L Potassium 3.4 L (3.5-5.1) mmol/L Chloride 104 (98-107) mmol/L Carbon Dioxide 22 (22-30) mmol/L Anion Gap 14.0 (5-15) MEQ/L BUN 10 (7-17) mg/dL Creatinine 0.55 (0.52-1.04) mg/dL Estimated GFR 124.0 ML/MIN Glucose 224 H (74-106) mg/dL Calcium 9.7 (8.4-10.2) mg/dL Total Bilirubin 0.40 (0.2-1.3) mg/dL AST 53 H (14-36) U/L ALT 106 H (0-35) U/L Alkaline Phosphatase 79 (38-126) U/L Troponin I (0.000-0.034) ng/mL Serum Total Protein 7.6 (6.3-8.2) g/dL Albumin 4.6 (3.5-5.0) g/dL Serum HCG, Qual (NEGATIVE) - Progress Progress: improved, re-examined Air Movement: good Progress Note: 08/17/23 23:24 33 years old is evaluated in the ER for sudden onset substernal chest pain burning nature after she had a dinner. EKG showed sinus tach with no acute ST elevation and negative troponins x 2. Negative D-dimer. Chest x-ray negative for any acute cardiopulmonary findings reviewed by me, official report is pending. Patient is given GI cocktail and Protonix, on reevaluation she is pa in-free. I believe part of her symptoms are secondary to acid reflux with esophagitis. She is advised to take her Prilosec regularly. Her pain is not very typical of cardiac, low heart score, do not think needs further evaluation in the emergency department and inpatient, recommended outpatient follow-up. Discussed signs symptoms of worsening needing return to ER which she seems understanding. Stable for discharge. Blood Culture(s) Obtained: No Antibiotics given: No Counseled pt/family regarding: lab results, diagnosis, need for follow-up, rad results Medical Desision Making - Diagnostic Testing Diagnostic test were ordered, analyzed, and reviewed by me: Yes Radiological Interpretation: Interpreted by me, Reviewed by me - Departure Departure Disposition: Home Clinical Impression: Atypical chest pain, GERD with esophagitis Condition: Stable Critical Care Time: No Referrals: NISSA PEREZ MD [Primary Care Provider] - Follow up/PCP as directed Instructions: Acid Reflux and GERD in Adults (DC), Angina (DC) Additional Instructions: Continue with your Prilosec. Follow-up with primary care for reevaluation. Return to ER for worsening chest pain or if having difficulty breathing etc.
[2023-08-17 19:27] LABS: Absolute Neutrophil Ct (ANC) 4.32 x10^3/uL (1.4-6.9); BASOPHIL % 0.4 % (0.0-0.4); Basophil (Absolute #) 0.03 x10^3/uL (0-0.4); Eosinophil (Absolute #) 0.07 x10^3/uL (0-0.5); Hematocrit 41.5 % (35-47); Hemoglobin 13.6 g/dL (12.0-16.0); IMMATURE GRAN # 0.02 x10^3u/L (0.00-0.03); IMMATURE GRAN % 0.3 % (0.00-0.4); Lymphocyte (Absolute #) 2.35 x10^3/uL (1.0-4.6); Lymphocytes % 33.1 % (24.0-44.0); Mean Corpuscular Hemoglobin 29.8 pg (26-32); Mean Corpuscular Hgb Concent. 32.8 g/dL (32-36); Mean Platelet Volume 10.9 fL (7.5-11.0); Monocyte (Absolute #) 0.31 x10^3/uL (0.0-1.3); Monocytes % 4.4 % (0.0-12.0); Neutrophil % 60.8 % (36.0-66.0); Platelet Count 289 x10^3/uL (150-450); Red Blood Count 4.56 x10^6/uL (4.1-5.4); Red Cell Distribution Width 12.8 % (11.5-14.0); White Blood Count 7.1 x10^3/uL (4.0-10.5)
[2023-08-17] MEDS: BABY ASPIRIN 81 MG CHEW PO ONE (19:27)
[2023-08-17] MEDS: GI COCKTAIL 45 ML (Maalox/Lidocaine) PO ONE (19:28)
[2023-08-17] MEDS: PROTONIX 40 MG IV IV ONE (19:30)
[2023-08-17 19:37] LABS: HCG SERUM TEST NEGATIVE (NEGATIVE)
[2023-08-17 19:39] LABS: ALBUMIN 4.6 g/dL (3.5-5.0); BILIRUBIN,TOTAL 0.4 mg/dL (0.2-1.3); Calcium 9.7 mg/dL (8.4-10.2); Creatinine 1 0.55 mg/dL (0.52-1.04); Potassium 3.4 mmol/L (3.5-5.1); Total Protein 7.6 g/dL (6.3-8.2)
[2023-08-17] MEDS ORDERED: Sodium Chloride 0.9% 500 ML 500 ML IV ONE (20:33)
[2023-08-17] MEDS: Sodium Chloride 0.9% 500 ML 500 ML IV ONE (20:36)
[2023-08-17 23:18] VITALS: BP 101/62; PULSE 97; RESP 23
[2023-08-17 23:26] VITALS: O2SAT 96
--- NOTE | 2023-08-20 14:00 | XRAY ---
Indication: Chest pain. Comparison: June 26, 2023 Portable chest less inflated and remains clear. Heart not enlarged. Bony thorax intact. No new/acute findings.
== END 2023-08-17 23:45 | disposition home or self-care (01) ==
LOC: ED 18:37
DX: R07.89 Other chest pain (principal); K21.00 Gastro-esophageal reflux disease with esophagitis, without bleeding; R42 Dizziness and giddiness; R11.0 Nausea; E78.5 Hyperlipidemia, unspecified; I10 Essential (primary) hypertension; E11.9 Type 2 diabetes mellitus without complications; Z79.84 Long term (current) use of oral hypoglycemic drugs; Z79.899 Other long term (current) drug therapy; Z28.310 Unvaccinated for COVID-19
CPT/HCPCS: 36415; 71045; 80053; 84484; 84703; 85025; 85379; 93005; 93041; 96360; 96374; 99284; A9270-GY

== ENCOUNTER 2023-10-27 19:54 | Emergency (ER) | payer BC, OTHER ==
--- NOTE | 2023-10-27 20:19 | ERPHSYRPT ---
- History of Present Illness Time Seen by Provider: 10/27/23 20:19 Historian: patient Exam Limitations: no limitations Physician History: This is a morbidly obese 33-year-old white female patient who is seen in our emergency department often for various abdominal complaints. Today's complaint is left upper quadrant and left-sided abdominal pain that began at 1:00 this morning. It has been constant and intermittently sharp. She took Motrin at 1600 and Tylenol at 1900. She has been nauseated but has not been vomiting. She attempted to eat [employer] at 1900. Because of the persistent nature of her pain, the patient came in to be evaluated. Patient has a history of gastroesophageal reflux disease, depression, hyperlipidemia, diabetes, hypertension, anxiety and fibromyalgia Timing/Duration: today Quality: aching Abdominal Pain Onset Location: LUQ, LLQ Severity of Pain-Max: moderate Severity of Pain-Current: moderate Modifying Factors: Improves With: nothing Associated Symptoms: nausea, No vomiting Previous symptoms: same symptoms as today, no recent treatment Allergies/Adverse Reactions: nifedipine [From Procardia] Allergy (Mild, Verified 10/27/23 20:12) flushed skin Home Medications: Omeprazole 40 mg PO DAILY 02/03/22 [History] Fexofenadine HCl [Niru Allergy] 180 mg PO DAILY 09/02/22 [History] modafiniL [Modafinil] 200 mg PO BID 09/02/22 [History] Duloxetine HCl [Cymbalta] 60 mg PO DAILY 02/25/23 [History] Atorvastatin Calcium [Lipitor] 10 mg PO DAILY 08/17/23 [History] Hydroxyzine HCl 25 mg [Atarax 25 mg] 50 tab PO BID 08/17/23 [History] Lisinopril 10 mg [Zestril 10 MG] 10 mg PO DAILY 08/17/23 [History] Metformin HCl 500 mg [Glucophage 500 MG] 1,000 mg PO BID 08/17/23 [History] Famotidine [Pepcid] 40 mg PO DAILY 10/27/23 [History] Semaglutide [Ozempic] 0.25 mg SQ WEEKLY 10/27/23 [History] Hx Tetanus, Diphtheria Vaccination/Date Given: Yes Hx Influenza Vaccination/Date Given: Yes Hx Pneumococcal Vaccination/Date Given: No Travel Risk - International Travel Have you traveled outside of the country in past 3 weeks: No - Emerging Infectious Disease Are you exhibiting symptoms associated with any current EIDs: No - Review of Systems Constitutional: No Symptoms Eyes: No Symptoms Ears, Nose, & Throat: No Symptoms Respiratory: No Symptoms Cardiac: No Symptoms Abdominal/Gastrointestinal: Abdominal Pain (Left upper quadrant left side), Nausea, Appetite Changes, No Vomiting, No Diarrhea Genitourinary Symptoms: No Symptoms Musculoskeletal: No Symptoms Skin: No Symptoms Neurological: No Symptoms Psychological: No Symptoms Endocrine: No Symptoms Hematologic/Lymphatic: No Symptoms Immunological/Allergic: No Symptoms All Other Systems: Reviewed and Negative - Past Medical History Pertinent Past Medical History: Yes Neurological History: No Pertinent History ENT History: No Pertinent History Cardiac History: Arrhythmia, High Cholesterol, Hypertension Respiratory History: Sleep Apnea, Other Endocrine Medical History: Diabetes Type II, Liver Disease Musculoskeletal History: Fibromyalgia GI Medical History: GERD, Gallbladder Disease History: Other Psycho-Social History: Anxiety, Attention Deficit Disorder, Depression Female Reproductive Disorders: No Pertinent History Other Medical History: C-PAP, Narcolepsy, non-alcoholic fatty liver disease - Past Surgical History Past Surgical History: Yes Neuro Surgical History: No Pertinent History Cardiac: No Pertinent History Respiratory: No Pertinent History Gastrointestinal: Cholecystectomy Genitourinary: No Pertinent History Musculoskeletal: No Pertinent History Female Surgical History: Section Other Surgical History: - Social History Smoking Status: Never smoker How long have you smoked: 1 YEAR Exposure to second hand smoke: No Drug Use: none Patient Lives Alone: Yes - Nursing Vital Signs Nursing Vital Signs: Initial Vital Signs Temperature 99.4 F 10/27/23 20:13 Pulse Rate 80 10/27/23 20:13 Respiratory Rate 18 10/27/23 20:13 Blood Pressure 138/96 10/27/23 20:13 O2 Sat by Pulse Oximetry 94 L 10/27/23 20:13 Pain Scale Pain Intensity 5 - Physical Exam General Appearance: no apparent distress, alert, anxiety, obese Eye Exam: PERRL/EOMI, eyes nml inspection Ears, Nose, Throat Exam: normal ENT inspection, moist mucous membranes Neck Exam: normal inspection, non-tender, supple, full range of motion Respiratory Exam: normal breath sounds, lungs clear, airway intact, No chest tenderness, No respiratory distress Cardiovascular Exam: regular rate/rhythm, normal heart sounds, normal peripheral pulses Gastrointestinal/Abdomen Exam: soft, normal bowel sounds, tenderness (Mild t enderness to palpation left upper quadrant and left side of abdomen), guarding (Plus minus left upper quadrant left side of abdomen), No rebound Pelvic Exam: not done Rectal Exam: not done Back Exam: normal inspection, normal range of motion, No CVA tenderness, No vertebral tenderness Extremity Exam: normal inspection, normal range of motion, pelvis stable Neurologic Exam: alert, oriented x 3, cooperative, channel marketing manager II-XII nml as tested, normal mood/affect, nml cerebellar function, nml station & gait, sensation nml Skin Exam: normal color, warm, dry Lymphatic Exam: No adenopathy SpO2 Interpretation: normal O2 Delivery: Room Air - Course Nursing assessment & vital signs reviewed: Yes Ordered Tests: Active Orders 24 hr Category Date Time Status IV Insertion STAT Care 10/27/23 20:45 Active ABDOMEN AND PELVIS W/0 CONTRAS [CT] Stat Exams 10/27/23 20:46 Completed AMYLASE Stat Lab 10/27/23 20:25 Completed CBC W DIFF Stat Lab 10/27/23 20:25 Completed CMP Stat Lab 10/27/23 20:25 Completed CULTURE,URINE Stat Lab 10/27/23 20:47 Received HCG QUALITATIVE, SERUM Stat Lab 10/27/23 20:25 Completed LIPASE Stat Lab 10/27/23 20:25 Completed UA W/RFX UR CULTURE Stat Lab 10/27/23 20:47 Completed Medication Summary Discontinued Medications Generic Name Dose Route Start Last Admin Trade Name Freq PRN Reason Stop Dose Admin Hydromorphone HCl 1 mg 10/27/23 20:45 10/27/23 21:24 Hydromorphone 1 Mg/1ml Inj IV 10/27/23 20:46 1 mg STAT ONE Administration Hydromorphone HCl Confirm 10/27/23 21:09 Hydromorphone 1 Mg/1ml Inj Administered 10/27/23 21:10 Dose 1 mg .ROUTE .STK-MED ONE Sodium Chloride 1,000 mls @ 999 mls/hr 10/27/23 20:45 10/27/23 21:24 Sodium Chloride 0.9% 1000 Ml IV 10/27/23 21:45 999 mls/hr .Q1H1M STA Administration Sodium Chloride Confirm 10/27/23 21:09 Sodium Chloride 0.9% 1000 Ml Administered 10/27/23 21:10 Dose 1,000 mls @ ud .ROUTE .K-MED ONE Ondansetron HCl 4 mg 10/27/23 20:45 10/27/23 21:25 Ondansetron Hcl 4 Mg/2 Ml Vial IV 10/27/23 20:46 4 mg STAT ONE Administration Ondansetron HCl Confirm 10/27/23 21:09 Ondansetron Hcl 4 Mg/2 Ml Vial Administered 10/27/23 21:10 Dose 4 mg .ROUTE .K-MED ONE Lab/Rad Data: Laboratory Result Diagrams 10/27/23 20:25 10/27/23 20:25 Laboratory Results 10/27/23 10/27/23 10/27/23 Range/Units 20:47 20:25 20:25 WBC (4.0-10.5) x10^3/uL RBC (4.1-5.4) x10^6/uL Hgb (12.0-16.0) g/dL Hct (35-47) % MCV (78-100) fL MCH (26-32) pg MCHC (32-36) g/dL RDW (11.5-14.0) % Plt Count (150-450) x10^3/uL MPV (7.5-11.0) fL Gran % (36.0-66.0) % Immature Gran % (Auto) (0.00-0.4) % Nucleat RBC Rel Count (0.00-0.1) % Eos # (Auto) (0-0.5) x10^3/uL Immature Gran # (Auto) (0.00-0.03) x10^3u/L Absolute Lymphs (auto) (1.0-4.6) x10^3/uL Absolute Monos (auto) (0.0-1.3) x10^3/uL Absolute Nucleated RBC (0.00-0.01) x10^3u/L Lymphocytes % (24.0-44.0) % Monocytes % (0.0-12.0) % Eosinophils % (0.00-5.0) % Basophils % (0.0-0.4) % Absolute Granulocytes (1.4-6.9) x10^3/uL Basophils # (0-0.4) x10^3/uL Sodium 139 (135-145) mmol/L Potassium 4.5 (3.5-5.1) mmol/L Chloride 108 H (98-107) mmol/L Carbon Dioxide 20 L (22-30) mmol/L Anion Gap 15.1 H (5-15) MEQ/L BUN 9 (7-17) mg/dL Creatinine 0.63 (0.52-1.04) mg/dL Estimated GFR 120.1 ML/MIN Glucose 132 H (74-106) mg/dL Calcium 9.9 (8.4-10.2) mg/dL Total Bilirubin 0.60 (0.2-1.3) mg/dL AST 54 H (14-36) U/L ALT 101 H (0-35) U/L Alkaline Phosphatase 79 (38-126) U/L Serum Total Protein 7.3 (6.3-8.2) g/dL Albumin 4.3 (3.5-5.0) g/dL Amylase 90 (30-110) U/L Lipase 460 H (23-300) U/L Serum HCG, Qual NEGATIVE (NEGATIVE) Urine Color Yellow (Yellow) Urine Appearance Cloudy A (Clear) Urine pH 5.5 (4.6-8.0) Ur Specific [place] 1.020 (1.005-1.030) Urine Protein Negative (Negative) Urine Glucose (UA) Negative (Negative) mg/dL Urine Ketones Trace A (Negative) Urine Blood Negative (Negative) Urine Nitrite Negative (Negative) Urine Bilirubin Negative (Negative) Urine Urobilinogen 1.0 A (0.2) mg/dL Ur Leukocyte Esterase Moderate A (Negative) U Hyaline Cast (Auto) NONE SEEN (0-2) /LPF Urine Microscopic RBC 6-10 A (0-5) /HPF Urine Microscopic WBC 21-50 A (0-5) /HPF Ur Epithelial Cells Moderate A (None Seen) /HPF Urine Bacteria Few A (None Seen) /HPF Urine Culture Reflexed YES (NO) 10/27/23 Range/Units 20:25 WBC 10.6 H (4.0-10.5) x10^3/uL RBC 4.95 (4.1-5.4) x10^6/uL Hgb 14.7 (12.0-16.0) g/dL Hct 44.7 (35-47) % MCV 90.3 (78-100) fL MCH 29.7 (26-32) pg MCHC 32.9 (32-36) g/dL RDW 13.3 (11.5-14.0) % Plt Count 259 (150-450) x10^3/uL MPV 11.8 H (7.5-11.0) fL Gran % 62.9 (36.0-66.0) % Immature Gran % (Auto) 0.2 (0.00-0.4) % Nucleat RBC Rel Count 0.0 (0.00-0.1) % Eos # (Auto) 0.15 (0-0.5) x10^3/uL Immature Gran # (Auto) 0.02 (0.00-0.03) x10^3u/L Absolute Lymphs (auto) 3.26 (1.0-4.6) x10^3/uL Absolute Monos (auto) 0.48 (0.0-1.3) x10^3/uL Absolute Nucleated RBC 0.00 (0.00-0.01) x10^3u/L Lymphocytes % 30.7 (24.0-44.0) % Monocytes % 4.5 (0.0-12.0) % Eosinophils % 1.4 (0.00-5.0) % Basophils % 0.3 (0.0-0.4) % Absolute Granulocytes 6.67 (1.4-6.9) x10^3/uL Basophils # 0.03 (0-0.4) x10^3/uL Sodium (135-145) mmol/L Potassium (3.5-5.1) mmol/L Chloride (98-107) mmol/L Carbon Dioxide (22-30) mmol/L Anion Gap (5-15) MEQ/L BUN (7-17) mg/dL Creatinine (0.52-1.04) mg/dL Estimated GFR ML/MIN Glucose (74-106) mg/dL Calcium (8.4-10.2) mg/dL Total Bilirubin (0.2-1.3) mg/dL AST (14-36) U/L ALT (0-35) U/L Alkaline Phosphatase (38-126) U/L Serum Total Protein (6.3-8.2) g/dL Albumin (3.5-5.0) g/dL Amylase (30-110) U/L Lipase (23-300) U/L Serum HCG, Qual (NEGATIVE) Urine Color (Yellow) Urine Appearance (Clear) Urine pH (4.6-8.0) Ur Specific [place] (1.005-1.030) Urine Protein (Negative) Urine Glucose (UA) (Negative) mg/dL Urine Ketones (Negative) Urine Blood (Negative) Urine Nitrite (Negative) Urine Bilirubin (Negative) Urine Urobilinogen (0.2) mg/dL Ur Leukocyte Esterase (Negative) U Hyaline Cast (Auto) (0-2) /LPF Urine Microscopic RBC (0-5) /HPF Urine Microscopic WBC (0-5) /HPF Ur Epithelial Cells (None Seen) /HPF Urine Bacteria (None Seen) /HPF Urine Culture Reflexed (NO) - Progress Progress: improved, pain not gone completely, re-examined Progress Note: 10/27/23 22:13 My medical decision making and the assignment of moderate complexity to this patient's medical issue is based on review of the patient's past medical history, review of patient's medication list, review of patient drug allergy list, history of present illness and physical findings on examination. The workup in this patient includes intravenous line placement, normal saline solution, intravenous Zofran, intravenous Dilaudid, amylase and lipase levels, CBC, CMP, urinalysis, test, CT scan of the abdomen pelvis without contrast. Differential diagnosis includes pancreatitis, bowel obstruction, bowel perforation, anxiety, urinary tract infection, abdominal wall/muscular pain 10/27/23 22:20 I interpreted the patient's laboratory data results. Patient does have chronically elevated transaminase levels. The current levels are lower than those that have been drawn in the past. Patient has a normal amylase level and a slightly elevated lipase level. Patient also has a significant, moderate lev el, urinary tract infection. This could account for her symptoms. The CT scan of the abdomen pelvis was interpreted by the radiologist and I reviewed the impression. There are no significant acute abnormalities in the abdomen or pelvis. There is hepatomegaly present. There is no significant estuardo nges when compared to the prior CT scan of the abdomen pelvis without contrast. Counseled pt/family regarding: lab results, diagnosis, need for follow-up, rad results Medical Desision Making - Diagnostic Testing Diagnostic test were ordered, analyzed, and reviewed by me: Yes Radiological Interpretation: Reviewed by me - Risk of complications The pt has a mod risk of morbidity or mortality based on: Need for prescription drug management - Departure Departure Disposition: Home Clinical Impression: Nausea, Elevated lipase Condition: Stable Critical Care Time: No Referrals: NISSA PEREZ MD [Primary Care Provider] - Follow up/PCP as directed Additional Instructions: Drink plenty of clear liquids before advancing your diet. Avoid fatty greasy spicy foods. Call your primary care provider tomorrow, 10/28/2023 to make arrangements for follow-up appointment to be seen within the next 3 to 5 days. Take your antibiotic and other medications as prescribed. Avoid alcohol intake. Prescriptions: Cefdinir 300 mg PO BID #14 cap
[2023-10-27 20:21] VITALS: TEMP 99.4
[2023-10-27 20:53] LABS: Absolute Neutrophil Ct (ANC) 6.67 x10^3/uL (1.4-6.9); BASOPHIL % 0.3 % (0.0-0.4); Basophil (Absolute #) 0.03 x10^3/uL (0-0.4); Eosinophil % 1.4 % (0.00-5.0); Eosinophil (Absolute #) 0.15 x10^3/uL (0-0.5); Hematocrit 44.7 % (35-47); Hemoglobin 14.7 g/dL (12.0-16.0); IMMATURE GRAN # 0.02 x10^3u/L (0.00-0.03); IMMATURE GRAN % 0.2 % (0.00-0.4); Lymphocyte (Absolute #) 3.26 x10^3/uL (1.0-4.6); Lymphocytes % 30.7 % (24.0-44.0); Mean Cell Volume 90.3 fL (78-100); Mean Corpuscular Hemoglobin 29.7 pg (26-32); Mean Corpuscular Hgb Concent. 32.9 g/dL (32-36); Mean Platelet Volume 11.8 fL (7.5-11.0); Monocyte (Absolute #) 0.48 x10^3/uL (0.0-1.3); Monocytes % 4.5 % (0.0-12.0); Neutrophil % 62.9 % (36.0-66.0); Platelet Count 259 x10^3/uL (150-450); Red Blood Count 4.95 x10^6/uL (4.1-5.4); Red Cell Distribution Width 13.3 % (11.5-14.0); White Blood Count 10.6 x10^3/uL (4.0-10.5)
[2023-10-27 21:03] LABS: ADD URINE CULTURE? YES (NO); Appearance Cloudy (Clear); Bacteria Few /HPF (None Seen); Bilirubin Negative (Negative); Blood Negative (Negative); Epithelial Cells Moderate /HPF (None Seen); Glucose, Urine Negative (Negative); Hyaline Casts NONE SEEN /LPF (0-2); Ketones Trace (Negative); Leukocyte Esterase Moderate (Negative); Nitrite Negative (Negative); Ph 5.5 (4.6-8.0); Protein,Urine Dip Negative (Negative); WBC 21-50 /HPF (0-5)
[2023-10-27 21:06] LABS: HCG SERUM TEST NEGATIVE (NEGATIVE)
[2023-10-27 21:09] LABS: ALBUMIN 4.3 g/dL (3.5-5.0); BILIRUBIN,TOTAL 0.6 mg/dL (0.2-1.3); Calcium 9.9 mg/dL (8.4-10.2); Creatinine 1 0.63 mg/dL (0.52-1.04); EST GLOMERULAR FILTRATION RATE 120.1 ML/MIN; Potassium 4.5 mmol/L (3.5-5.1); Total Protein 7.3 g/dL (6.3-8.2)
[2023-10-27] MEDS ORDERED: Sodium Chloride 0.9% 1000 ML 1,000 ML ONE (21:09)
[2023-10-27] MEDS ORDERED: Hydromorphone 1 mg/ml Injection ONE (21:09)
[2023-10-27] MEDS ORDERED: Zofran 4 MG/2 ML VIAL ONE (21:09)
[2023-10-27 21:11] VITALS: O2SAT 96
[2023-10-27 21:12] LABS: ANION GAP 15.1 MEQ/L (5-15)
[2023-10-27] MEDS: Sodium Chloride 0.9% 1000 ML 1,000 ML IV STA (21:24)
[2023-10-27] MEDS: Hydromorphone 1 mg/ml Injection IV ONE (21:24)
[2023-10-27] MEDS: Zofran 4 MG/2 ML VIAL IV ONE (21:25)
--- NOTE | 2023-10-27 22:05 | XRAY ---
CLINICAL HISTORY: LLQ ABD pain COMPARISON: US 02/19/[address] 02/04/2023 TECHNIQUE: Axial CT scan of the abdomen and pelvis was performed with IV contrast. Coronal and sagittal reconstructive images were also obtained. One of the following dose reduction techniques were utilized for this exam: Automated exposure control, adjustment of the mA and/or kV according to patient size, use of iterative reconstruction. CTDI: 24.17 mGy, DLP: 1419 mGy-cm. FINDINGS: Sections of lower thorax show no significant abnormality. Abdomen: The liver is enlarged in size, measuring 20 cm craniocaudally and shows fatty infiltration. The intrahepatic biliary radicals and the bile ducts are normal. The gallbladder is surgically removed.. The spleen, pancreas, adrenal glands are unremarkable. The kidneys are normal in size and shape. No calculi or hydronephrosis. The appendix could not be well delineated however, no secondary signs of acute appendicitis. Colon is fecal-loaded. The ascending colon, the transverse colon, the descending colon, visualized small bowel loops are otherwise, unremarkable. There is no evidence of significant enlargement of the mesenteric or retroperitoneal lymph nodes. Small fat-containing umbilical hernia noted. Pelvis: The urinary bladder is unremarkable. The rectosigmoid colon is unremarkable. The uterus is retroverted and shows IUCD in situ. No evidence of pelvic lymphadenopathy. No definite bony abnormalities could be depicted. Pseudoarthrosis of right-sided L5 and S1 transverse processes is identified. IMPRESSION: 1. No significant abnormality in CT abdomen and pelvis, within the limitations of plain study 2. Hepatomegaly with fatty infiltration 3. No significant interval changes since recent ultrasound and CT studies Electronically Signed by: Eden Sykes MD. (10/27/2023 22:00:58 EDT)
[2023-10-27 22:17] VITALS: RESP 18
[2023-10-27] MEDS ORDERED: ROCEPHIN 1 GM / 100 ML NaCl 1 GM/100 ML IVPB IV ONE (22:21)
[2023-10-27] MEDS: ROCEPHIN 1 GM / 100 ML NaCl 1 GM/100 ML IVPB IV ONE (22:23)
[2023-10-27 22:49] VITALS: BP 130/77; PULSE 100
== END 2023-10-27 22:53 | disposition home or self-care (01) ==
LOC: ED 19:54
DX: R11.0 Nausea (principal); R74.8 Abnormal levels of other serum enzymes; R10.12 Left upper quadrant pain; E78.5 Hyperlipidemia, unspecified; E11.9 Type 2 diabetes mellitus without complications; I10 Essential (primary) hypertension; Z79.84 Long term (current) use of oral hypoglycemic drugs; Z79.85 Long-term (current) use of injectable non-insulin antidiabetic drugs; Z79.899 Other long term (current) drug therapy
CPT/HCPCS: 36000; 36415; 74176; 80053; 81001; 82150; 83690; 84703; 85025; 87086; 96365; 96374; 96375; 99284; J0696; J1170; J2405

== ENCOUNTER 2024-02-20 00:16 | Emergency (ER) | payer OTHER ==
[2024-02-20 00:31] VITALS: TEMP 96.6
--- NOTE | 2024-02-20 00:31 | ERPHSYRPT ---
- History of Present Illness Time Seen by Provider: 02/20/24 00:27 Source: patient Physician History: 33-year-old female history of diabetes fibromyalgia presents to our ED for evaluation of a migraine headache, dizziness generalized weakness. No fever. Symptoms have been progressive over the past 2 days. No trauma. No nausea vomiting no diarrhea no rash. Symptoms are mild to moderate in intensity. No specific worsening or improving factors. She denies a history of the same. Patient checked her glucose at home which appeared to be within normal limits. Oral intake is down somewhat. Patient otherwise feels well. She voices no other complaints or concerns at this time. Portions of this note were created with voice recognition technology. There may be grammatical, spelling, punctuation or sound alike errors Timing/Duration: day(s) (2 days ago) Severity: moderate Modifying Factors: Improves With: nothing Associated Symptoms: denies symptoms Allergies/Adverse Reactions: nifedipine [From Procardia] Allergy (Mild, Verified 02/20/24 00:38) flushed skin Home Medications: Omeprazole 40 mg PO DAILY 02/03/22 [History] Fexofenadine HCl [Niru Allergy] 180 mg PO DAILY 09/02/22 [History] modafiniL [Modafinil] 200 mg PO BID 09/02/22 [History] Duloxetine HCl [Cymbalta] 60 mg PO BID 02/25/23 [History] Atorvastatin Calcium [Lipitor] 10 mg PO DAILY 08/17/23 [History] Hydroxyzine HCl 25 mg [Atarax 25 mg] 50 tab PO BID 08/17/23 [History] Lisinopril 10 mg [Zestril 10 MG] 10 mg PO DAILY 08/17/23 [History] Metformin HCl 500 mg [Glucophage 500 MG] 1,000 mg PO BID 08/17/23 [History] Famotidine [Pepcid] 40 mg PO DAILY 10/27/23 [History] Semaglutide [Ozempic] 1 mg SQ WEEKLY 10/27/23 [History] Hx Tetanus, Diphtheria Vaccination/Date Given: Yes Hx Influenza Vaccination/Date Given: Yes Hx Pneumococcal Vaccination/Date Given: No Travel Risk - Emerging Infectious Disease Are you exhibiting symptoms associated with any current EIDs: No Symptoms: Abdominal Pain - Review of Systems Constitutional: No Symptoms, No Fever, No Chills Eyes: No Symptoms Ears, Nose, & Throat: No Symptoms Respiratory: No Symptoms, No Cough, No Dyspnea Cardiac: No Symptoms, No Chest Pain, No Edema, No Syncope Abdominal/Gastrointestinal: No Symptoms, No Abdominal Pain, No Nausea, No Vomiting, No Diarrhea Genitourinary Symptoms: No Symptoms, No Dysuria Musculoskeletal: No Symptoms, No Back Pain, No Neck Pain Skin: No Symptoms, No Rash Neurological: No Symptoms, No Dizziness, No Focal Weakness, No Sensory Changes Psychological: No Symptoms Endocrine: No Symptoms Hematologic/Lymphatic: No Symptoms Immunological/Allergic: No Symptoms All Other Systems: Reviewed and Negative - Past Medical History Pertinent Past Medical History: Yes Neurological History: No Pertinent History ENT History: No Pertinent History Cardiac History: Arrhythmia, High Cholesterol, Hypertension Respiratory History: Sleep Apnea, Other Endocrine Medical History: Diabetes Type II, Liver Disease Musculoskeletal History: Fibromyalgia GI Medical History: GERD, Gallbladder Disease History: Other Psycho-Social History: Anxiety, Attention Deficit Disorder, Depression Female Reproductive Disorders: No Pertinent History Other Medical History: C-PAP, Narcolepsy, non-alcoholic fatty liver disease - Past Surgical History Past Surgical History: Yes Neuro Surgical History: No Pertinent History Cardiac: No Pertinent History Respiratory: No Pertinent History Gastrointestinal: Cholecystectomy Genitourinary: No Pertinent History Musculoskeletal: No Pertinent History Female Surgical History: Section Other Surgical History: - Female History Hx Last Menstrual Period: UNSURE - Social History Smoking Status: Never smoker How long have you smoked: 1 YEAR Exposure to second hand smoke: No Drug Use: none Patient Lives Alone: Yes - Social Determinants of Health Will the patient participate in the screening: Yes Do you worry about a steady place to live?: No In the past 12 months,have you had to go without utilities?: No Transportation Issues: No Has anyone in your support network made you feel unsafe?: No Have you or anyone in your house had to go without enough: No - Nursing Vital Signs Nursing Vital Signs: Initial Vital Signs O2 Sat by Pulse Oximetry 96 02/20/24 00:24 Pain Scale Pain Intensity 9 - Physical Exam General Appearance: no apparent distress, alert Eye Exam: PERRL/EOMI, eyes nml inspection Ears, Nose, Throat Exam: normal ENT inspection, TMs normal, pharynx normal, moist mucous membranes Neck Exam: normal inspection, non-tender, supple, full range of motion Respiratory Exam: normal breath sounds, lungs clear, No respiratory distress Cardiovascular Exam: regular rate/rhythm, normal heart sounds, normal peripheral pulses Gastrointestinal/Abdomen Exam: soft, normal bowel sounds, No tenderness, No mass Back Exam: normal inspection, normal range of motion, No CVA tenderness, No vertebral tenderness Extremity Exam: normal inspection, normal range of motion, pelvis stable Neurologic Exam: alert, oriented x 3, cooperative, normal mood/affect, nml cerebellar function, nml station & gait, sensation nml, other (Nonremarkable neurologic exam), No motor deficits Skin Exam: normal color, warm, dry, No rash Lymphatic Exam: No adenopathy SpO2 Interpretation: normal SpO2: 96 O2 Delivery: Room Air - Course Nursing assessment & vital signs reviewed: Yes Ordered Tests: Active Orders 24 hr Category Date Time Status Spindle Sander STAT Care 02/20/24 00:24 Active EKG-ER Only STAT Care 02/20/24 00:24 Active IV Insertion STAT Care 02/20/24 00:24 Active Pulse Oximetry (ED) STAT Care 02/20/24 00:24 Active CBC W DIFF Stat Lab 02/20/24 00:47 Completed CMP Stat Lab 02/20/24 00:47 Completed HCG QUALITATIVE, URINE Stat Lab 02/20/24 00:47 Completed TROPONIN Q4H Lab 02/20/24 00:47 Completed TROPONIN Q4H Lab 02/20/24 04:30 Ordered TROPONIN Q4H Lab 02/20/24 08:30 Ordered UA W/RFX UR CULTURE Stat Lab 02/20/24 00:47 Completed Medication Summary Discontinued Medications Generic Name Dose Route Start Last Admin Trade Name Solitarioq PRN Reason Stop Dose Admin Diphenhydramine HCl 25 mg 02/20/24 00:26 02/20/24 01:26 Diphenhydramine Hcl 50 Mg/Ml Vial IV 02/20/24 00:27 25 mg STAT ONE Administration Diphenhydramine HCl Confirm 02/20/24 01:20 Diphenhydramine Hcl 50 Mg/Ml Vial Administered 02/20/24 01:21 Dose 50 mg .ROUTE .STK-MED ONE Sodium Chloride 1,000 mls @ 999 mls/hr 02/20/24 00:24 02/20/24 01:25 Sodium Chloride 0.9% 1000 Ml IV 02/20/24 01:24 999 mls/hr .Q1H1M STA Administration Sodium Chloride Confirm 02/20/24 01:20 Sodium Chloride 0.9% 1000 Ml Administered 02/20/24 01:21 Dose 1,000 mls @ ud .ROUTE .STK-MED ONE Ketorolac Tromethamine 30 mg 02/20/24 00:25 02/20/24 01:25 Ketorolac Tromethamine 30 Mg/Ml Inj IV 02/20/24 00:26 30 mg STAT ONE Administration Ketorolac Tromethamine Confirm 02/20/24 01:20 Ketorolac Tromethamine 30 Mg/Ml Inj Administered 02/20/24 01:21 Dose 30 mg .ROUTE .STK-MED ONE Prochlorperazine Edisylate 10 mg 02/20/24 00:25 02/20/24 01:26 Prochlorperazine Edisylate 10 Mg/2 Ml Vial IV 02/20/24 00:26 10 mg STAT ONE Administration Prochlorperazine Edisylate Confirm 02/20/24 01:20 Prochlorperazine Edisylate 10 Mg/2 Ml Vial Administered 02/20/24 01:21 Dose 10 mg .ROUTE .STK-[facility] ONE Lab/Rad Data: Laboratory Result Diagrams 02/20/24 00:47 02/20/24 00:47 Laboratory Results 02/20/24 02/20/24 02/20/24 Range/Units 00:47 00:47 00:47 WBC (3.98-10.04) x10^3/uL RBC (3.93-5.22) x10^6/uL Hgb (11.2-15.7) g/dL Hct (34.1-44.9) % MCV (79.4-94.8) fL MCH (25.6-32.2) pg MCHC (32.2-35.5) g/dL RDW (11.7-14.4) % Plt Count (182-369) x10^3/uL MPV (9.4-12.3) fL Gran % (34.0-71.1) % Immature Gran % (Auto) (0.001-0.429) % Nucleat RBC Rel Count (0.00-0.2) % Eos # (Auto) (0.04-0.36) x10^3/uL Immature Gran # (Auto) (0.001-0.031) x10^3u/L Absolute Lymphs (auto) (1.18-3.74) x10^3/uL Absolute Monos (auto) (0.24-0.86) x10^3/uL Absolute Nucleated RBC (0.00-0.012) x10^3u/L Lymphocytes % (19.3-51.7) % Monocytes % (4.7-12.5) % Eosinophils % (0.7-5.8) % Basophils % (0.1-1.2) % Absolute Granulocytes (1.56-6.13) x10^3/uL Basophils # (0.01-0.08) x10^3/uL Sodium (135-145) mmol/L Potassium (3.5-5.1) mmol/L Chloride (98-107) mmol/L Carbon Dioxide (22-30) mmol/L Anion Gap (5-15) MEQ/L BUN (7-17) mg/dL Creatinine (0.52-1.04) mg/dL Estimated GFR ML/MIN Glucose (74-106) mg/dL Calcium (8.4-10.2) mg/dL Total Bilirubin (0.2-1.3) mg/dL AST (14-36) U/L ALT (0-35) U/L Alkaline Phosphatase (38-126) U/L Troponin I < 0.012 (0.000-0.033) ng/mL Serum Total Protein (6.3-8.2) g/dL Albumin (3.5-5.0) g/dL Urine Color (Yellow) Urine Appearance (Clear) Urine pH (4.6-8.0) Ur Specific [place] (1.005-1.030) Urine Protein (Negative) Urine Glucose (UA) (Negative) mg/dL Urine Ketones (Negative) Urine Blood (Negative) Urine Nitrite (Negative) Urine Bilirubin (Negative) Urine Urobilinogen (0.2) mg/dL Ur Leukocyte Esterase (Negative) Urine Microscopic RBC (0-5) /HPF Urine Microscopic WBC (0-5) /HPF Ur Epithelial Cells (None Seen) /HPF Urine Bacteria (None Seen) /HPF Urine Culture Reflexed (NO) Urine HCG, Qual NEGATIVE (NEGATIVE) Influenza Type A Ag NEGATIVE (NEGATIVE) Influenza Type B Ag NEGATIVE (NEGATIVE) RSV (PCR) NEGATIVE (NEGATIVE) SARS-CoV-2 (PCR) NEGATIVE (NEGATIVE) 02/20/24 02/20/24 02/20/24 Range/Units 00:47 00:47 00:47 WBC 11.4 H (3.98-10.04) x10^3/uL RBC 4.94 (3.93-5.22) x10^6/uL Hgb 14.7 (11.2-15.7) g/dL Hct 44.3 (34.1-44.9) % MCV 89.7 (79.4-94.8) fL MCH 29.8 (25.6-32.2) pg MCHC 33.2 (32.2-35.5) g/dL RDW 13.2 (11.7-14.4) % Plt Count 298 (182-369) x10^3/uL MPV 11.3 (9.4-12.3) fL Gran % 57.4 (34.0-71.1) % Immature Gran % (Auto) 0.4 (0.001-0.429) % Nucleat RBC Rel Count 0.0 (0.00-0.2) % Eos # (Auto) 0.13 (0.04-0.36) x10^3/uL Immature Gran # (Auto) 0.05 H (0.001-0.031) x10^3u/L Absolute Lymphs (auto) 4.03 H (1.18-3.74) x10^3/uL Absolute Monos (auto) 0.60 (0.24-0.86) x10^3/uL Absolute Nucleated RBC 0.00 (0.00-0.012) x10^3u/L Lymphocytes % 35.4 (19.3-51.7) % Monocytes % 5.3 (4.7-12.5) % Eosinophils % 1.1 (0.7-5.8) % Basophils % 0.4 (0.1-1.2) % Absolute Granulocytes 6.54 H (1.56-6.13) x10^3/uL Basophils # 0.04 (0.01-0.08) x10^3/uL Sodium 141 (135-145) mmol/L Potassium 3.7 (3.5-5.1) mmol/L Chloride 103 (98-107) mmol/L Carbon Dioxide 26 (22-30) mmol/L Anion Gap 15.9 H (5-15) MEQ/L BUN 10 (7-17) mg/dL Creatinine 0.72 (0.52-1.04) mg/dL Estimated GFR 113.2 ML/MIN Glucose 93 (74-106) mg/dL Calcium 9.8 (8.4-10.2) mg/dL Total Bilirubin 0.50 (0.2-1.3) mg/dL AST 33 (14-36) U/L ALT 57 H (0-35) U/L Alkaline Phosphatase 82 (38-126) U/L Troponin I (0.000-0.033) ng/mL Serum Total Protein 7.9 (6.3-8.2) g/dL Albumin 4.9 (3.5-5.0) g/dL Urine Color Yellow (Yellow) Urine Appearance Clear (Clear) Urine pH 6.0 (4.6-8.0) Ur Specific [place] <=1.005 (1.005-1.030) Urine Protein Negative (Negative) Urine Glucose (UA) Negative (Negative) mg/dL Urine Ketones Negative (Negative) Urine Blood Negative (Negative) Urine Nitrite Negative (Negative) Urine Bilirubin Negative (Negative) Urine Urobilinogen 0.2 (0.2) mg/dL Ur Leukocyte Esterase Trace A (Negative) Urine Microscopic RBC 0-2 (0-5) /HPF Urine Microscopic WBC 6-10 A (0-5) /HPF Ur Epithelial Cells Rare (None Seen) /HPF Urine Bacteria Few A (None Seen) /HPF Urine Culture Reflexed NO (NO) Urine HCG, Qual (NEGATIVE) Influenza Type A Ag (NEGATIVE) Influenza Type B Ag (NEGATIVE) RSV (PCR) (NEGATIVE) SARS-CoV-2 (PCR) (NEGATIVE) - Progress Progress: improved Progress Note: 33-year-old female history of migraine headaches presents to our ED for evaluation of a migraine. Patient was experiencing some generalized weakness and malaise. Workup reveals a leukocytosis. RSV COVID influenza negative. UA significant for urinary tract infection. Patient received a dose of Macrobid in our ED. A prescription for the same was forwarded to patient's pharmacy. Patient reassessed. Repeat neuroexam nonremarkable. No focal or lateralizing symptoms. She states she feels significantly better and is ready for discharge. Will discharge patient home. Patient agrees to follow-up with her primary care doctor within 48 hours for reevaluation. Patient voices no other complaints or concerns at this time. Portions of this note were created with voice recognition technology. There may be grammatical, spelling, punctuation or sound alike errors Complexity of problem addressed is moderate acute complicated. No critical care time. Complex of data reviewed and analyzed is moderate. Test ordered test reviewed results analyzed and correlated clinically with history and physical exam. Risk of complication and or risk of morbidity/mortality of patient management is moderate. A prescription for Macrobid forwarded to patient's pharmacy. Vital stable. Time spent to discharge patient is approximately 15 minutes. Plan of care established for shared decision making. No social determinants of health present to impede follow-up. Portions of this note were created with voice recognition technology. There may be grammatical, spelling, punctuation or sound alike errors 02/20/24 02:03 02/20/24 02:06 Counseled pt/family regarding: lab results, diagnosis, need for follow-up - Departure Departure Disposition: Home Clinical Impression: Migraine, UTI (urinary tract infection), Leukocytosis Condition: Stable Critical Care Time: No Referrals: NISSA PEREZ MD [Primary Care Provider] - Follow up/PCP as directed Additional Instructions: Discharge/Care Plan JOE GAR was seen on 02/20/24 in the Emergency Room. The patient was counseled regarding Diagnosis,Lab results, Imaging studies, need for follow up and when to return to the Emergency Room. Prescriptions given: Discharge Note I have spoken with the patient and/or caregivers. I have explained the patient's condition, diagnosis and treatment plan based on the information available to me at this time. I have answered the patient's and/or caregiver's questions and addressed any concerns. The patient and/or caregivers have as good understanding of the patient's diagnosis, condition and treatment plan as can be expected at this point. The vital signs have been stable. The patient's condition is stable and appropriate for discharge from the emergency department. The patient will pursue further outpatient evaluation with the primary care physician or other designated or consulting physician as outlined in the discharge instructions. The patient and/or caregivers are agreeable to this plan of care and follow-up instructions have been explained in detail. The patient and/or caregivers have received these instruction. The patient/and or caregivers are aware that any significant change in condition or worsening of symptoms should prompt an immediate return to this or the closest emergency department or call 911. Prescriptions: Nitrofurantoin Macro 100 mg [Macrobid 100MG Capsule] 100 mg PO BID 7 Days #14 cap
[2024-02-20 00:52] LABS: Absolute Neutrophil Ct (ANC) 6.54 x10^3/uL (1.56-6.13); BASOPHIL % 0.4 % (0.1-1.2); Basophil (Absolute #) 0.04 x10^3/uL (0.01-0.08); Eosinophil % 1.1 % (0.7-5.8); Eosinophil (Absolute #) 0.13 x10^3/uL (0.04-0.36); Hematocrit 44.3 % (34.1-44.9); Hemoglobin 14.7 g/dL (11.2-15.7); IMMATURE GRAN # 0.05 x10^3u/L (0.001-0.031); IMMATURE GRAN % 0.4 % (0.001-0.429); Lymphocyte (Absolute #) 4.03 x10^3/uL (1.18-3.74); Lymphocytes % 35.4 % (19.3-51.7); Mean Cell Volume 89.7 fL (79.4-94.8); Mean Corpuscular Hemoglobin 29.8 pg (25.6-32.2); Mean Corpuscular Hgb Concent. 33.2 g/dL (32.2-35.5); Mean Platelet Volume 11.3 fL (9.4-12.3); Monocytes % 5.3 % (4.7-12.5); Neutrophil % 57.4 % (34.0-71.1); Platelet Count 298 x10^3/uL (182-369); Red Blood Count 4.94 x10^6/uL (3.93-5.22); Red Cell Distribution Width 13.2 % (11.7-14.4); White Blood Count 11.4 x10^3/uL (3.98-10.04)
[2024-02-20 00:55] LABS: HCG URINE TEST NEGATIVE (NEGATIVE)
[2024-02-20 01:02] LABS: ALBUMIN 4.9 g/dL (3.5-5.0); ANION GAP 15.9 MEQ/L (5-15); BILIRUBIN,TOTAL 0.5 mg/dL (0.2-1.3); Calcium 9.8 mg/dL (8.4-10.2); Creatinine 1 0.72 mg/dL (0.52-1.04); EST GLOMERULAR FILTRATION RATE 113.2 ML/MIN; Potassium 3.7 mmol/L (3.5-5.1); Total Protein 7.9 g/dL (6.3-8.2)
[2024-02-20] MEDS ORDERED: BENADRYL 50 MG/ML ONE (01:20)
[2024-02-20] MEDS ORDERED: Sodium Chloride 0.9% 1000 ML 1,000 ML ONE (01:20)
[2024-02-20] MEDS ORDERED: TORAdol 30 mg Injection ONE (01:20)
[2024-02-20] MEDS ORDERED: Compazine 10 MG/2 ML ONE (01:20)
[2024-02-20] MEDS: TORAdol 30 mg Injection IV ONE (01:25)
[2024-02-20] MEDS: Sodium Chloride 0.9% 1000 ML 1,000 ML IV STA (01:25)
[2024-02-20] MEDS: BENADRYL 50 MG/ML IV ONE (01:26)
[2024-02-20] MEDS: Compazine 10 MG/2 ML IV ONE (01:26)
[2024-02-20 01:30] LABS: INFLUENZA A NEGATIVE (NEGATIVE); INFLUENZA B NEGATIVE (NEGATIVE); RESPIRATORY SYNCTIAL VIRUS NEGATIVE (NEGATIVE); SARS-CoV-2 Xpert Express NEGATIVE (NEGATIVE)
[2024-02-20 01:50] LABS: Appearance Clear (Clear); Bilirubin Negative (Negative); Blood Negative (Negative); Glucose, Urine Negative (Negative); Ketones Negative (Negative); Leukocyte Esterase Trace (Negative); Nitrite Negative (Negative); Protein,Urine Dip Negative (Negative); Specific Gravity <=1.005 (1.005-1.030); Urobilinogen 0.2 mg/dL (0.2)
[2024-02-20 01:53] LABS: Epithelial Cells Rare /HPF (None Seen); RBC 0-2 /HPF (0-5)
[2024-02-20 01:54] LABS: ADD URINE CULTURE? NO (NO); Bacteria Few /HPF (None Seen)
[2024-02-20] MEDS ORDERED: Macrobid 100MG Capsule ONE (02:02)
[2024-02-20] MEDS: Macrobid 100MG Capsule PO ONE (02:02)
[2024-02-20 02:04] VITALS: BP 98/63; PULSE 89; RESP 20
[2024-02-20 02:09] VITALS: O2SAT 96
== END 2024-02-20 02:29 | disposition home or self-care (01) ==
LOC: ED 00:16
DX: G43.909 Migraine, unspecified, not intractable, without status migrainosus (principal); N39.0 Urinary tract infection, site not specified; D72.829 Elevated white blood cell count, unspecified; R42 Dizziness and giddiness; R53.1 Weakness; E78.5 Hyperlipidemia, unspecified; I10 Essential (primary) hypertension; E11.9 Type 2 diabetes mellitus without complications; Z79.84 Long term (current) use of oral hypoglycemic drugs; Z79.85 Long-term (current) use of injectable non-insulin antidiabetic drugs; Z79.899 Other long term (current) drug therapy
CPT/HCPCS: 0241U; 36000; 36415; 80053; 81001; 81025; 84484; 85025; 93005; 93041; 94760; 96374; 96375; 99284; J1200; J1885; A9270-GY

== ENCOUNTER 2024-05-10 18:44 | Emergency (ER) | payer OTHER ==
[2024-05-10 19:00] VITALS: RESP 18; TEMP 98.5
--- NOTE | 2024-05-10 19:35 | ERPHSYRPT ---
- History of Present Illness Time Seen by Provider: 05/10/24 19:25 Source: patient, family Exam Limitations: no limitations Patient Subjective Stated Complaint: Sorethroat since Saturday Triage Nursing Assessment: Patient ambulated back to ER without difficulties. Throat is red. White patches to tongue. NO SOB. She is alert and oriented. Physician History: 33yo f presents via private vehicle for sore throat and white spots on tongue x 3d. Pt reports she has had pain w/ swallowing for the past 3d, does not endorse any documented fevers at home but does endorse some diaphoresis and chills intermittently. Pt denies any recent antibiotic use. Pt has not taken any medications for her sx. Pt reports she has not taken any of her daily medications in the past 2 days. Pt denies any difficulties tolerating secretions. Timing/Duration: day(s) (3) Severity: mild Associated Symptoms: diaphoresis, No nausea, No vomiting, No abdominal pain, No shortness of breath, No cough, No chest pain, No fever, No loss of appetite, No weakness Allergies/Adverse Reactions: nifedipine [From Procardia] Allergy (Mild, Verified 05/10/24 18:54) flushed skin Home Medications: Omeprazole 40 mg PO DAILY 02/03/22 [History] Fexofenadine HCl [Niru Allergy] 180 mg PO DAILY 09/02/22 [History] modafiniL [Modafinil] 200 mg PO BID 09/02/22 [History] Duloxetine HCl [Cymbalta] 60 mg PO BID 02/25/23 [History] Atorvastatin Calcium [Lipitor] 10 mg PO DAILY 08/17/23 [History] Hydroxyzine HCl 25 mg [Atarax 25 mg] 50 tab PO BID 08/17/23 [History] Lisinopril 10 mg [Zestril 10 MG] 10 mg PO DAILY 08/17/23 [History] Metformin HCl 500 mg [Glucophage 500 MG] 1,000 mg PO BID 08/17/23 [History] Semaglutide [Ozempic] 2 mg SQ WEEKLY 10/27/23 [History] Hx Tetanus, Diphtheria Vaccination/Date Given: Yes Hx Influenza Vaccination/Date Given: Yes Hx Pneumococcal Vaccination/Date Given: No Immunizations Up to Date: Yes Travel Risk - International Travel Have you traveled outside of the country in past 3 weeks: No - Emerging Infectious Disease Are you exhibiting symptoms associated with any current EIDs: No Symptoms: Abdominal Pain - Review of Systems Constitutional: Chills, No Fever Ears, Nose, & Throat: Ear Pain (b/l), Nose Congestion, Nose Discharge, Sinus Drainage, Throat Pain, Painful Swallowing, No Ear Discharge, No Hoarse, No Snoring, No Stridor Respiratory: No Symptoms Cardiac: No Symptoms Abdominal/Gastrointestinal: No Symptoms Genitourinary Symptoms: No Symptoms Musculoskeletal: No Arthralgias, No Neck Pain - Past Medical History Pertinent Past Medical History: Yes Neurological History: No Pertinent History ENT History: No Pertinent History Cardiac History: Arrhythmia, High Cholesterol, Hypertension Respiratory History: Sleep Apnea, Other Endocrine Medical History: Diabetes Type II, Liver Disease Musculoskeletal History: Fibromyalgia GI Medical History: GERD, Gallbladder Disease History: Other Psycho-Social History: Anxiety, Attention Deficit Disorder, Depression Female Reproductive Disorders: No Pertinent History Other Medical History: C-PAP, Narcolepsy, non-alcoholic fatty liver disease - Past Surgical History Past Surgical History: Yes Neuro Surgical History: No Pertinent History Cardiac: No Pertinent History Respiratory: No Pertinent History Gastrointestinal: Cholecystectomy Genitourinary: No Pertinent History Musculoskeletal: No Pertinent History Female Surgical History: Section Other Surgical History: - Female History Hx Last Menstrual Period: UNSURE Hx Now: No (IUD) - Social History Smoking Status: Never smoker How long have you smoked: 1 YEAR Exposure to second hand smoke: No Drug Use: none Patient Lives Alone: Yes - Social Determinants of Health Will the patient participate in the screening: Yes Do you worry about a steady place to live?: No Do you have any problems with any of the following?: No known problems In the past 12 months,have you had to go without utilities?: No Transportation Issues: No Has anyone in your support network made you feel unsafe?: No Have you or anyone in your house had to go without enough: No - Nursing Vital Signs Nursing Vital Signs: Initial Vital Signs Temperature 98.5 F 05/10/24 18:56 Pulse Rate 71 05/10/24 18:56 Respiratory Rate 18 05/10/24 18:56 Blood Pressure 124/91 05/10/24 18:56 O2 Sat by Pulse Oximetry 97 05/10/24 18:56 Pain Scale Pain Intensity 2 - Physical Exam General Appearance: no apparent distress Eye Exam: PERRL/EOMI Ears, Nose, Throat Exam: TMs normal, pharyngeal erythema, other (white film on tongue, able to scrape off, non-painful, no swelling of tongue), No tonsillar exudate Neck Exam: normal inspection, No meningismus, No midline tenderness, No thyromegaly Respiratory Exam: normal breath sounds, lungs clear, airway intact, No chest tenderness, No respiratory distress Cardiovascular Exam: regular rate/rhythm, normal heart sounds, normal peripheral pulses Gastrointestinal/Abdomen Exam: soft, No tenderness, No distention Skin Exam: normal color SpO2 Interpretation: normal SpO2: 97 O2 Delivery: Room Air Ordered Tests: Medication Summary Generic Name Dose Route Start Last Admin Trade Name Freq PRN Reason Stop Dose Admin Benzocaine/Butamben/Tetracaine HCl 5 spray 05/10/24 19:56 Tetracaine/Benzocaine/Butamben 1 [place] MM 05/10/24 19:57 ONCE ONE Lab/Rad Data: Laboratory Results 05/10/24 Range/Units 19:00 Influenza Type A Ag NEGATIVE (NEGATIVE) Influenza Type B Ag NEGATIVE (NEGATIVE) RSV (PCR) NEGATIVE (NEGATIVE) SARS-CoV-2 (PCR) NEGATIVE (NEGATIVE) Group A Strep Antibody NOT DETECTED (NEGATIVE) - Progress Progress: improved Progress Note: 05/10/24 20:03 given nystatin rinse and chlorheptic spray for oral discomfort likely viral URI vs allergic post nasal drip causing throat irritation vs oral thrush strep negative, covid/flu/rsv negative plan for dc home w/ close pcp follow up w/ Dr Perez this week will send course of oral nystatin rinse and spit for concern for thrush recommend tylenol/ibuprofen for discomfort, otc throat spray for discomfort recommend cold liquids as tolerated return to ED if: become unable to tolerate solid/liquid intake, develop difficulty breathing, develop fevers that dont respond to tylenol/ibuprofen Counseled pt/family regarding: lab results, diagnosis, need for follow-up Medical Desision Making - Diagnostic Testing Diagnostic test were ordered, analyzed, and reviewed by me: Yes - Risk of complications Minimal Risk: Minimal risk of morbidity - Departure Departure Disposition: Home Clinical Impression: Sore throat, White patches on oral mucosa Condition: Stable Critical Care Time: No Referrals: NISSA PEREZ MD [Primary Care Provider] - Follow up/PCP as directed Additional Instructions: plan for dc home w/ close pcp follow up w/ Dr Perez this week will send course of oral nystatin rinse and spit for concern for thrush recommend tylenol/ibuprofen for discomfort, otc throat spray for discomfort recommend cold liquids as tolerated return to ED if: become unable to tolerate solid/liquid intake, develop difficulty breathing, develop fevers that dont respond to tylenol/ibuprofen Prescriptions: Nystatin 100,000 unit PO DAILY 7 Days #35 ml
[2024-05-10 19:36] LABS: Group A Strep NOT DETECTED (NEGATIVE)
[2024-05-10 19:46] LABS: INFLUENZA A NEGATIVE (NEGATIVE); INFLUENZA B NEGATIVE (NEGATIVE); RESPIRATORY SYNCTIAL VIRUS NEGATIVE (NEGATIVE); SARS-CoV-2 Xpert Express NEGATIVE (NEGATIVE)
[2024-05-10 20:05] VITALS: BP 106/68; PULSE 69
[2024-05-10 20:06] VITALS: O2SAT 97
[2024-05-10] MEDS ORDERED: CETACAINE SPRAY ONE (20:26)
[2024-05-10] MEDS: Nystatin SUSPENSION 60 ML PO ONE (20:27)
[2024-05-10] MEDS: CETACAINE SPRAY MM ONE (20:28)
== END 2024-05-10 20:39 | disposition home or self-care (01) ==
LOC: ED 18:44
DX: J02.9 Acute pharyngitis, unspecified (principal); K13.29 Other disturbances of oral epithelium, including tongue; E78.5 Hyperlipidemia, unspecified; I10 Essential (primary) hypertension; E11.9 Type 2 diabetes mellitus without complications; Z79.84 Long term (current) use of oral hypoglycemic drugs; Z79.85 Long-term (current) use of injectable non-insulin antidiabetic drugs; Z79.899 Other long term (current) drug therapy
CPT/HCPCS: 0241U; 87651; 99283; A9270-GY

== ENCOUNTER 2024-08-24 10:13 | Day surgery (SDC) | payer OTHER ==
--- NOTE | 2024-08-23 17:21 | HP ---
HISTORY OF PRESENT ILLNESS: A 34-year-old with some rectal bleeding, history of some prolapsing internal hemorrhoids in the past. Had a colonoscopy at least a couple years ago or more and polyps. Family history negative for colon cancer. PAST MEDICAL HISTORY: Has had a history of anxiety, fibromyalgia, headaches, hyperlipidemia, type 2 diabetes, reflux, asthma, hypertension, and depression. HOME MEDICATIONS: Medications include vitamin C, calcium, cranberry, propranolol, vitamin D3, hydroxyzine, vitamin E, montelukast, docusate sodium, duloxetine, omeprazole, calcium polycarbophil fiber tablet, lisinopril, atorvastatin, and metformin. Otherwise, Modafinil, multivitamins, sumatriptan, pregabalin, Trelegy Ellipta. ALLERGIES: No known drug allergies. PAST SURGICAL HISTORY: She has had a in the past. Had a cholecystectomy in the past. Had a colonoscopy in the past. SOCIAL HISTORY: No smoking or alcohol abuse. FAMILY HISTORY: Diabetes. Negative for colon cancer. REVIEW OF SYSTEMS: Twelve systems reviewed. No chest pain or palpitations. Other systems negative or noncontributory as above and per preadmission questionnaire. PHYSICAL EXAMINATION: GENERAL: Height 5 feet 6 inches. BMI 35.5. No acute distress. HEENT: Sclerae anicteric. Extraocular movements are intact. NECK: No JVD. CARDIOVASCULAR: Equal excursion, nonlabored breathing. CARDIOVASCULAR: Regular rate and rhythm. ABDOMEN: Soft. SKIN: Dry. EXTREMITIES: No cyanosis or edema. NEUROLOGIC: Alert and oriented. Moving extremities symmetrically. PSYCHIATRIC: Appropriate mood and affect. RECTAL: Internal but no thrombosed external hemorrhoids. There may have been a superficial fissure. IMPRESSION: Rectal bleeding, history of prolapsing and internal hemorrhoids. Needs colonoscopy, possible internal banding. Risks explained in detail including bleeding and infection; risk of bowel injury or perforation; risk of missed or nondiagnosis or incomplete exam possibly requiring other procedures or referral; risk of anesthesia or sedation; risk of bowel prep, not limited to. Otherwise, risk of recurrent fissure possibly requiring other surgical and/or other referrals or treatments. She understands. She agreed to proceed. We will proceed with outpatient colonoscopy, possible internal hemorrhoid banding, as an outpatient. She will be on a script for diltiazem cream for a superficial fissure.
[2024-08-24] MEDS: Lactated Ringers 1,000 ML IV SCH (10:45)
[2024-08-24 10:53] VITALS: RESP 18
[2024-08-24 11:02] LABS: Absolute Neutrophil Ct (ANC) 3.02 x10^3/uL (1.56-6.13); BASOPHIL % 0.7 % (0.1-1.2); Basophil (Absolute #) 0.04 x10^3/uL (0.01-0.08); Eosinophil % 2.3 % (0.7-5.8); Eosinophil (Absolute #) 0.14 x10^3/uL (0.04-0.36); Hematocrit 41.5 % (34.1-44.9); Hemoglobin 14.2 g/dL (11.2-15.7); IMMATURE GRAN # 0.01 x10^3u/L (0.001-0.031); IMMATURE GRAN % 0.2 % (0.001-0.429); Lymphocyte (Absolute #) 2.47 x10^3/uL (1.18-3.74); Mean Cell Volume 87.7 fL (79.4-94.8); Mean Corpuscular Hgb Concent. 34.2 g/dL (32.2-35.5); Mean Platelet Volume 11.4 fL (9.4-12.3); Monocyte (Absolute #) 0.34 x10^3/uL (0.24-0.86); Monocytes % 5.6 % (4.7-12.5); Neutrophil % 50.2 % (34.0-71.1); Platelet Count 245 x10^3/uL (182-369); Red Blood Count 4.73 x10^6/uL (3.93-5.22); Red Cell Distribution Width 13.3 % (11.7-14.4)
[2024-08-24 11:15] LABS: HCG SERUM TEST NEGATIVE (NEGATIVE)
[2024-08-24 11:21] LABS: ANION GAP 16.8 MEQ/L (5-15); Calcium 9.5 mg/dL (8.4-10.2); Creatinine 1 0.55 mg/dL (0.52-1.04); EST GLOMERULAR FILTRATION RATE 123.3 ML/MIN; Potassium 3.9 mmol/L (3.5-5.1)
[2024-08-24] MEDS ORDERED: propofoL IV ONE ×2 (12:23→12:38)
[2024-08-24] MEDS ORDERED: Xylocaine-Mpf 2% 5 Ml Vial ONE (12:23)
[2024-08-24] MEDS ORDERED: Versed 2 MG/2 ML Injection ONE (12:28)
[2024-08-24] MEDS ORDERED: ROBINUL ONE (12:31)
[2024-08-24] MEDS ORDERED: SUBLIMAZE 100 MCG/2 ML ONE (12:34)
[2024-08-24] MEDS ORDERED: Zofran 4 MG/2 ML VIAL ONE (13:12)
[2024-08-24 13:29] VITALS: TEMP 97.1
[2024-08-24 13:42] VITALS: BP 98/74; PULSE 66; O2SAT 95
--- NOTE | 2024-08-25 11:30 | OP ---
SURGERY DATE/TIME: 08/24/2024 [id number] PREOPERATIVE DIAGNOSES: 1) History of rectal bleeding. 2) History of polyps in the past. 3) History of some internal and external hemorrhoids. POSTOPERATIVE DIAGNOSES: 1) Fair bowel prep. 2) A few tiny diverticula. 3) Small polyps in transverse colon and sigmoid colon. 4) Grade 2 internal and external hemorrhoids. PROCEDURES: 1) Colonoscopy to cecum 2) Hot biopsy polypectomy of transverse colon polyp x1 and sigmoid colon polyps x2. 3) Random biopsy of rectal patchy inflammation versus preparation irritation, random rectal biopsy. 4) Internal hemorrhoid banding x3 columns. SURGEON: Sidney Gifford MD CAR DRYER: Du Ramos MS3 ESTIMATED BLOOD LOSS: Minimal. ANESTHESIA: ASA class 3. INDICATIONS: As noted above, consent was obtained. DESCRIPTION OF PROCEDURE AND FINDINGS: The patient was taken to the endoscopy room. MAC anesthesia was induced. After official time-out and no disagreement with planned procedure, digital rectal exam revealed some internal and external hemorrhoids. The Videocolonoscope was inserted and passed up through the slightly tortuous sigmoid, descending, transverse, and ascending colon around to the cecum. Appendiceal orifice and valve well visualized. The scope was then carefully withdrawn over the next 9 minutes or so. Prep overall was fair. Had a little liquidy, semisolid stool throughout the colon, suction irrigated clear as possible. The scope was slowly and carefully withdrawn. A small 2 mm polyp in the transverse colon was removed with hot biopsy polypectomy. Good hemostasis was noted. The scope was then carefully pulled back to the sigmoid colon, and 2 small, early polyps versus hyperplastic lesions versus early polyps were removed with hot biopsy forceps. Good hemostasis noted. She had a few tiny early diverticula in the left colon. The scope pulled back into the rectum. There was a little bit of petechial blood, whether some patchy inflammation or prep irritation, random cold biopsy taken for evaluation. She did have some internal and external hemorrhoids. The scope was withdrawn. Under the bright OR lights, there was a little bit external posterior midline. There was no visible fistula in ano at this time. She did have the grade 2 internal and external hemorrhoids. She had been having bleeding, and it was felt it was worthwhile to try a trial band procedure. Suction band was then carefully applied to the top edge of the hemorrhoid on the left lateral, again on the right posterior, and then again on the right anterior for 3 columns banded. Good darius of tissue at each site. There is no active bleeding currently. The retractors were withdrawn. Patient tolerated the procedure well. Findings discussed with family out in the waiting area. She will continue high-fiber diet or Metamucil-type products to titrate to soft, bulky stools; avoid straining at time of stooling; and sitz baths as needed.
== END 2024-08-24 13:45 | disposition home or self-care (01) ==
LOC: SDC 10:13
PROVIDERS: ATTEND Surgery
DX: Z09 Encounter for follow-up examination after completed treatment for conditions other than malignant neoplasm (principal); Z86.0100 Personal history of colon polyps, unspecified; Z87.19 Personal history of other diseases of the digestive system; K57.30 Diverticulosis of large intestine without perforation or abscess without bleeding; K64.4 Residual hemorrhoidal skin tags; K64.8 Other hemorrhoids; D12.5 Benign neoplasm of sigmoid colon; D12.3 Benign neoplasm of transverse colon; K62.1 Rectal polyp
CPT/HCPCS: 36415; 80048; 84703; 85025; 93005; J2250; J2405; J2704; J3010

== ENCOUNTER 2025-03-29 20:10 | Emergency (ER) | payer OTHER ==
[2012-11-10 13:57] VITALS: TEMP 98.6
[2025-03-29 21:16] VITALS: TEMP 97.4
[2025-03-29] MEDS: TYLENOL 325 MG PO ONE (21:20)
[2025-03-29] MEDS ORDERED: TYLENOL 325 MG ONE (21:20)
[2025-03-29 22:02] VITALS: RESP 18; O2SAT 97
--- NOTE | 2025-03-29 23:02 | ERPHSYRPT ---
- History of Present Illness Time Seen by Provider: 03/29/25 21:15 Source: patient Exam Limitations: no limitations Patient Subjective Stated Complaint: fall x 1 hour ago. L groin, L knee, and L toe pain Triage Nursing Assessment: . Physician History: 34-year-old female BMI of 39.7, history of type 2 diabetes peripheral neuropathy fibromyalgia presents to our ED for evaluation of a ground-level fall onto grass. Patient complains of pain to her left hip left knee left foot. No BHT or LOC. No neck pain. Cervical spine cleared clinically. The fall was mechanical and not associated with any neuro or cardiovascular symptomology. No associated chest pain or shortness of breath. No nausea vomiting or diaphoresis. No numbness tingling or weakness. Pain described as an ache that is localized. No radiation. Pain worse with movement and palpation. Pain improved with rest. Patient voices no other complaints or concerns at this time. Portions of this note were created with voice recognition technology. There may be grammatical, spelling, punctuation or sound alike errors Method of Injury: fell Occurred: yesterday Quality: constant Severity of Pain-Max: moderate Severity of Pain-Current: mild Lower Extremities Pain: hip: left, knee: left, foot: left Modifying Factors: Improves With: movement Associated Symptoms: none Allergies/Adverse Reactions: No Known Drug Allergies Allergy (Unverified 03/29/25 21:09) Hx Tetanus, Diphtheria Vaccination/Date Given: Yes Hx Influenza Vaccination/Date Given: Yes Travel Risk - International Travel Have you traveled outside of the country in past 3 weeks: No - Emerging Infectious Disease Are you exhibiting symptoms associated with any current EIDs: No - Review of Systems All Other Systems: Reviewed and Negative - Past Medical History Pertinent Past Medical History: Yes Respiratory History: Sleep Apnea Endocrine Medical History: Diabetes Type II Other Medical History: neuropathy, fibromyalgia, narcolepsy - Past Surgical History Past Surgical History: Yes Gastrointestinal: Cholecystectomy Female Surgical History: Section - Female History Hx Now: No - Social History Smoking Status: Never smoker Drug Use: none - Social Determinants of Health Will the patient participate in the screening: Declined to provide - Nursing Vital Signs Nursing Vital Signs: Initial Vital Signs Temperature 97.4 F 03/29/25 21:00 Pulse Rate 84 03/29/25 21:00 Respiratory Rate 16 03/29/25 21:00 Blood Pressure 108/68 03/29/25 21:00 O2 Sat by Pulse Oximetry 98 03/29/25 21:00 Pain Scale Pain Intensity 8 - Physical Exam General Appearance: alert Neck Exam: non-tender, supple Cardiovascular/Respiratory Exam: chest non-tender, normal breath sounds, regular rate/rhythm, no respiratory distress Gastrointestinal/Abdominal Exam: non-tender Back Exam: normal inspection, No vertebral tenderness Hips Exam: left: pain Legs Exam: bilateral leg: non-tender, normal range of motion, no evidence of injury Knees Exam: right knee: non-tender, normal inspection, normal range of motion, bone tenderness, left knee: soft tissue tenderness Ankle Exam: bilateral ankle: non-tender, normal inspection, normal range of motion, no evidence of injury Foot Exam: right foot: non-tender, normal inspection, normal range of motion, no evidence of injury, left foot: pain, bilateral foot: other (Compartments are soft. Cap refill less than 2 seconds. No open or draining lesions. However the toes appear a little dusky. Patient states that her toes tend to turn purple with cold weather.) Neuro/Tendon Exam: normal sensation, normal motor functions Mental Status Exam: alert, oriented x 3, cooperative Skin Exam: normal color, warm, dry SpO2 Interpretation: normal SpO2: 97 O2 Delivery: Room Air - Course Nursing assessment & vital signs reviewed: Yes - Radiology Exams Hip X-ray Interpretation: Interpreted by me (No fracture or dislocation) Knee X-ray Interpretation: Interpreted by me (No fracture or dislocation) Foot X-ray Interpretation: Interpreted by me (No fracture or dislocation) Ordered Tests: Active Orders 24 hr Category Date Time Status Crutches STAT Care 03/29/25 23:14 Active FOOT (MINIMUM 3 VIEWS) Stat Exams 03/29/25 21:17 Taken HIP UNI (2V) INCL PEL IF DONE Stat Exams 03/29/25 21:17 Taken KNEE (1 OR 2 VIEW) Stat Exams 03/29/25 21:17 Taken Medication Summary Discontinued Medications Generic Name Dose Route Start Last Admin Trade Name Solitarioq PRN Reason Stop Dose Admin Acetaminophen 975 mg 03/29/25 21:17 03/29/25 21:20 Acetaminophen 325 Mg Tablet PO 03/29/25 21:18 975 mg STAT ONE Administration Acetaminophen Confirm 03/29/25 21:20 Acetaminophen 325 Mg Tablet Administered 03/29/25 21:21 Dose 975 mg .ROUTE .[employer] ONE - Progress Progress: improved Progress Note: 34-year-old female BMI of 39.7, history of type 2 diabetes peripheral neuropathy fibromyalgia presents to our ED for evaluation of a ground-level fall onto grass. Physical exam reveals tenderness at the left foot left knee and left hip. Overlying soft tissue intact. No obvious swelling. No open or draining lesions. Range of motion limited due to pain however range of motion appears to be functional. Patient has Raynaud's-like vasospasm of toes with purplish discoloration. Patient states that it worsens with cold weather. Patient applied ice prior to arrival. We warmed up patient's foot with warm sheets and circulation was restored. Her toes became warm and pink. PT DP pulse palpable. X-rays negative for fracture dislocation. Patient referred to orthopedic clinic for follow-up. Patient will follow-up tomorrow between 8 and 10 am. Patient given bilateral axillary crutches. Patient resting comfortably. She received Tylenol for pain control. No active pain at this time. She voices no other complaints or concerns at this time. Portions of this note were created with voice recognition technology. There may be grammatical, spelling, punctuation or sound alike errors Pain significantly improved with Tylenol. [id number] analgesics at home. History obtained from patient. Sprain, contusion, tendinitis, ligament injury Complexity of problem addressed is moderate acute complicated. No critical care time. Complex of data reviewed and analyzed as extensive. Dr. Obrien independently reviewed and interpreted the x-ray of the hip knee and foot. This is a preliminary read. No obvious fracture or dislocation observed. Formal read pending. Risk of complication and or risk of morbidity/mortality of patient management is low. Patient received bilateral axillary crutches. Patient referred to orthopedic clinic for follow-up. Vital stable. Time spent to discharge patient is approximately 15 minutes. Vital stable. No social determinants of health present to impede follow-up. Portions of this note were created with voice recognition technology. There may be grammatical, spelling, punctuation or sound alike errors 03/29/25 23:28 Counseled pt/family regarding: diagnosis, need for follow-up - Departure Departure Disposition: Home Clinical Impression: Foot sprain, Hip sprain, Knee contusion, Raynaud's-like vasospasm of toes Condition: Stable Critical Care Time: No Referrals: NISSA PEREZ MD [Primary Care Provider, UNKNOWN] - Follow up/PCP as directed Instructions: Foot sprain - ED discharge instructions Additional Instructions: Discharge/Care Plan JOE GAR was seen on 03/29/25 in the Emergency Room. The patient was counseled regarding Diagnosis,Lab results, Imaging studies, need for follow up and when to return to the Emergency Room. Prescriptions given: Discharge Note I have spoken with the patient and/or caregivers. I have explained the patient's condition, diagnosis and treatment plan based on the information available to me at this time. I have answered the patient's and/or caregiver's questions and addressed any concerns. The patient and/or caregivers have as good understanding of the patient's diagnosis, condition and treatment plan as can be expected at this point. The vital signs have been stable. The patient's condition is stable and appropriate for discharge from the emergency department. The patient will pursue further outpatient evaluation with the primary care phys ician or other designated or consulting physician as outlined in the discharge instructions. The patient and/or caregivers are agreeable to this plan of care and follow-up instructions have been explained in detail. The patient and/or caregivers have received these instruction. The patient/and or caregivers are aware that any significant change in condition or worsening of symptoms should prompt an immediate return to this or the closest emergency department or call 911. Outpatient Orders: Ortho Referral Time Frame: 1 Day, Facility: [facility], Loca tion: ORTHO CLINIC
[2025-03-29 23:05] VITALS: BP 115/75; PULSE 79
--- NOTE | 2025-03-30 08:49 | XRAY ---
Indication: Pain following fall. Comparison: None 3 nonweightbearing views left foot demonstrates small posterior/plantar heel spurs. No other bony, articular, or soft tissue abnormalities.
--- NOTE | 2025-03-30 08:51 | XRAY ---
Indication: Pain following fall. Comparison: None AP pelvis and 2 view left hip demonstrates incidental uterine IUD. No other bony, articular, or soft tissue abnormalities.
--- NOTE | 2025-03-30 08:51 | XRAY ---
Indication: Pain following fall. Comparison: None 2 view left knee obtained. No bony, articular, or soft tissue abnormalities.
== END 2025-03-29 23:26 | disposition home or self-care (01) ==
LOC: MERGE 20:10 → ED 20:10
DX: S73.102A Unspecified sprain of left hip, initial encounter (principal); S93.602A Unspecified sprain of left foot, initial encounter; S80.02XA Contusion of left knee, initial encounter; W18.30XA Fall on same level, unspecified, initial encounter; I73.9 Peripheral vascular disease, unspecified; E11.9 Type 2 diabetes mellitus without complications